=== PATIENT | male | born 1965 | race Caucasian/White ===

== ENCOUNTER 2020-06-04 04:28 | Emergency (ER) | payer BC, SELFPAY ==
[2020-06-04 04:29] VITALS: BP 182/100; PULSE 77; RESP 18; TEMP 36.3; O2SAT 98; BMI 27.1
[2020-06-04] MEDS: LORazepam 1 MG Tablet PO (04:38)
--- NOTE | 2020-06-04 05:10 | ED.DCSUM_ITS ---
- ER Visit Summary Date of Service: 06/04/20 Chief Complaint: Anxiety History of Present Illness: The patient is a 55 M who presents with anxiety. He states is been building for the past week. He states that he is having a hard time at his job. Is becoming more dizzy and people around him at work are not happy with her job. This is been giving him some anxiety. He denies any history of anxiety in the past. He feels like his mind is racing. He feels stressed. He is having trouble sleeping. He took Benadryl which helped him sleep for a little bit but he then woke back up with the same anxiety. He has some slight nausea with this. He denies any chest pain or shortness of breath. He states that he is fairly healthy for his age. He exercises regularly. He takes no daily medications. Physical Examination: Vital signs reviewed. HEENT exam unremarkable. Heart is regular rate and rhythm without murmurs. Lungs are clear to auscultation. Abdomen is soft and nontender. Extremities reveal no edema. Skin exam normal. Neurologic exam normal. Patient's affect is appropriate. He is not suicidal. He appears comfortable laying in the bed. Test Results: None performed Emergency Department Course and Treatment: Patient's physical exam is unremarkable except for some slight hypertension. He was given a dose of Ativan here. I see no abnormalities on physical exam. He does have a follow-up appoi ntment with his PCP in 2 days. I recommend he keep that appointment. I will send him home with some Vistaril that he can take for anxiety. I do not feel he requires any laboratory studies or imaging at this time. Treatment Plan: [] Disposition: Discharge Impression: Anxiety This note was generated with [employer]ingo[employer] dictation software. It may contain incorrect words, spelling, and punctuation that were not noted in review of the chart prior to signing ED Disposition - Plan for ED Patient: Disposition: Home or Assisted Living Instructions: ED Panic Attack Prescriptions: hydrOXYzine pamoate capsule [Vistaril] 25 mg PO TID PRN PRN #20 cap PRN Reason: Anxiety Transmission Status: Pending to [id number] Referrals: Scar Wilkins MD [Primary Care Provider] -
[2020-06-04 05:29] VITALS: BP 163/90; PULSE 79; RESP 18; O2SAT 96
[2020-06-04 05:31] VITALS: BP 163/90
== END 2020-06-04 05:31 | disposition home or self-care (01) ==
LOC: ED 05:16
PROVIDERS: Emergency Provider Emergency Medicine; PCP Family Medicine
DX: F41.9 Anxiety disorder, unspecified (principal)
CPT/HCPCS: 99283

== ENCOUNTER 2025-04-25 18:38 | Observation (INO) | payer OTHER, SELFPAY ==
[2025-04-25 18:39] VITALS: BP 134/80; PULSE 90; RESP 16; TEMP 36.8; O2SAT 98
[2025-04-25 18:41] VITALS: BMI 24.5
--- NOTE | 2025-04-25 19:05 | CT_ITS ---
PROCEDURE: STROKE BRAIN/HEAD WITHOUT CONT 04/25/2025 REASON FOR EXAM: NEURO DEFICIT, ACUTE, STROKE SUSPECTED TECHNIQUE: Procedure Code: CTBR.ST Modality: CT Procedure: STROKE BRAIN/HEAD WITHOUT CONT Coronal and Sagittal reconstruction series were provided. One or more dose reduction techniques were used (e.g., Automated exposure control, adjustment of the mA and/or kV according to patient size, use of iterative reconstruction technique. RADIATION DOSE SUMMARY: CTDlvol: 80 mGy DLP: 1579 mGycm COMPARISON: None FINDINGS: Brain: There is no evidence of hemorrhage, acute ischemia or mass. No extra- axial fluid collection, midline shift or mass effect. CSF Spaces: Normal Sinuses/Mastoids: Clear Bones: No fracture Incidental note is made of some ossification of the anterior midline falx. CT/STROKE Brain/Head without Cont IMPRESSION: No acute intracranial abnormality. The findings and impression of this report were called directly to the ordering physician, Dr. Bacon at 7:39 p.m, eastern standard time. Reading Location: [id number]
--- NOTE | 2025-04-25 19:05 | EKG12_ITS ---
Test Reason : DIZZY Blood Pressure : */* mmHG Vent. Rate : 74 BPM Atrial Rate : 74 BPM P-R Int : 130 ms QRS Dur : 84 ms QT Int : 400 ms P-R-T Axes : 57 49 58 degrees QTcB Int : 444 ms Normal sinus rhythm Normal ECG Confirmed by Titi Ma ([id number]), assistant editor DARIO HO ([id number]) on 04/27/2025 10:38:43 AM Referred By: Confirmed By: Titi Ma
--- NOTE | 2025-04-25 19:06 | CT_ITS ---
PROCEDURE: STROKE CTA HEAD AND NECK W/CON 04/25/2025 REASON FOR EXAM: NEURO DEFICIT, ACUTE, STROKE SUSPECTED TECHNIQUE: Procedure Code: CTCTA.ST.HN Modality: CT Procedure: STROKE CTA HEAD AND NECK W/CON Multiplanar Sagittal and Coronal images were obtained. 3D post processing was performed CONTRAST: Isovue 370 VOLUME: 100 mL One or more dose reduction techniques were used (e.g., Automated exposure control, adjustment of the mA and/or kV according to patient size, use of iterative reconstruction technique). RADIATION DOSE SUMMARY: CTDlvol: 74 mGy DLP: 1579 mGycm COMPARISON: Head CT of the same day FINDINGS: Aortic Arch: No aneurysm. Left vertebral artery originates directly from the arch. Brachiocephalic and Subclavians: Unremarkable RIGHT Carotid: Right CCA: Minimal mural plaque at the carotid bulb. Right ICA: Minimal mural plaque proximally. Maximum stenosis (NASCET): Less than 15% % Right ECA: Unremarkable LEFT Carotid: Left CCA: Minimal mural plaque at the carotid bulb. Left ICA: Minimal mural plaque proximally. Maximum stenosis (NASCET): Less than 15 % Left ECA: Unremarkable Vertebrals: Right is dominant. Both are patent. RIGHT Vertebral: Unremarkable. LEFT Vertebral: Unremarkable. Anatomy: origin production inspector bilaterally. Aneurysm or avm: No intracranial aneurysms or large vascular malformations are identified. Anterior cerebral arteries: Unremarkable. Middle cerebral arteries: Unremarkable. Basilar artery: Unremarkable. Posterior cerebral arteries: origin bilaterally. Hypoplastic P1 segments bilaterally. Other major branches of the posterior circulation: Unremarkable. Major venous structures: Unremarkable. Other findings: Neck: No lymphadenopathy. Lungs: Lung apices are clear. Bones: Bones are unremarkable. CT/STROKE CTA Head AND Neck W/Con IMPRESSION: 1. No large vessel occlusion. 2. Minimal atherosclerosis of the carotid bulb and proximal internal carotid a rteries with less than 15% stenosis. 3. No aneurysm. Reading Location: [id number]
[2025-04-25 19:20] LABS: Hematocrit 43.6 % (40-54); Hemoglobin 16.2 g/dL (13.0-16.5); Immature Granulocytes Count 0.030 X10^3/uL (0.0-0.0); Mean Corp Hgb Conc 37.2 g/dL (32-36); Mean Corpuscular Volume 86.0 fL (80-94); Mean Platelet Vol. 9.3 fl (6.2-12.0); NRBC Flagged by Analyzer 0 % (0-5); Platelet Count 198 K/mm3 (150-450); RBC Distribution Width CV 11.3 % (11.6-14.6); RBC Distribution Width SD 35.1 fl (35.1-43.9); Red Blood Count 5.07 M/mm3 (4.6-6.2); White Blood Count 8.9 K/mm3 (4.4-11.0)
--- OUTSIDE RECORDS SUMMARY | 2025-04-25 19:27 | XMS RPT_ITS | CCD ---
Author Organization [facility] Care Team Providers Care Dental Ceramist Assistant Name Role Phone Lilia Montero MD Primary Care Provider Lilia Montero MD Primary Care Provider [phone] Tannhof PUBLIC AFFAIRS MANAGER.Kanchan HAIRSTON Unavailable Jimmy PUBLIC AFFAIRS MANAGER.Tio HAIRSTON Unavailable PAIGE MILLER Attending Unavailable LILIA MONTERO Primary Care Unavailable LILIA MONTERO Primary Care Unavailable LYN CABAN Attending Unavailable Allergies Allergy Classification Reported Allergen(s) Allergy Type Date of Onset Reaction(s) Facility (17 sources) Seasonal allergy; Translations: [SEASONAL ALLERGIES] Propensity to adverse reactions 01-30-2011 Intolerance [facility] Work Phone: Medications Current Medications Medication Drug Class(es) Dates Sig (Normalized) Sig (Original) amoxicillin 875 mg / clavulanate 125 mg oral tablet (4 sources) Penicillin-class Antibacterial Start: 03-07-2025 End: 03-14-2025 take 1 tablet by mouth every twelve hours amoxicillin-clav ulanate potassium (AUGMENTIN) 875-125 mg per tablet Take 1 tablet by mouth every 12 hours for 7 days. 14 tablet 03/07/2025 03/14/2025 Active Start: 03-18-2022 End: 03-25-2022 take 1 tablet by mouth twice daily amoxicillin-clavulanic acid (AUGMENTIN) 875-125 mg per tablet Take 1 tablet by mouth twice daily for 7 days. 14 tablet 0 03/18/2022 03/25/2022 Active Comment on above: Take 1 tablet by caitlyn twice daily for 7 days. lisinopril 10 mg oral tablet (8 sources) Angiotensin Converting Enzyme Inhibitor Start: 09-17-2024 take 1 tablet by mouth once daily lisinopril (ZESTRIL) 10 mg tablet Indications: Essential hypertension, benign Take 1 tablet by mouth once daily. 30 tablet 09/17/2024 Active Start: 05-17-2023 End: 09-15-2024 take 1 tablet by mouth once daily lisinopril (ZESTRIL) 10 mg tablet Indications: Essential hypertension, benign Take 1 tablet by mouth once daily. 90 tablet 3 06/14/2023 09/15/2024 Discontinued Comment on above: Take 1 tablet by caitlyn once daily. predniSONE 20 mg oral tablet (5 sources) Start: 03-28-2022 End: 04-02-2022 take 2 tablets by mouth once daily predniSONE (DELTASONE) 20 mg tablet Indications: Hoarseness of voice Take 2 tablets by mouth once daily for 5 days. 10 tablet 0 03/28/2022 04/02/2022 Active Start: 03-18-2022 End: 03-28-2022 predniSONE (DELTASONE) 10 mg tablet Take 4 tabs daily for 3 days, then 2 tabs daily for 3 days, then 1 tab daily for 3 days with food. 21 tablet 0 03/18/2022 03/28/2022 Discontinued Comment on above: Take 4 tabs daily fo r 3 days, then 2 tabs daily for 3 days, then 1 tab daily for 3 days with food. Take 2 tablets by mo [facility] once daily for 5 days. Completed/Discontinued Medications Medication Drug Class(es) Dates Sig (Normalized) Sig (Original) 24 hr buPROPion hydrochloride 150 mg extended release oral tablet (6 sources) Aminoketone Start: 05-17-2023 End: 09-15-2024 take 1 tablet by mouth once daily buPROPion XL (WELLBUTRIN XL) 150 mg 24 hr tablet Indications: Anxiety and depression Take 1 tablet by mouth once daily. 90 tablet 3 06/14/2023 09/15/2024 Discontinued Comment on above: Take 1 tablet by caitlyn once daily. FLUoxetine 20 mg oral capsule (13 sources) Serotonin Reuptake Inhibitor Start: 12-11-2021 End: 09-15-2024 take 1 capsule by mouth once daily FLUoxetine (PROZAC) 20 mg capsule Take 1 capsule by mouth once daily. 90 capsule 3 06/14/2023 09/15/2024 Discontinued Comment on above: Take 1 capsule by mo uth once daily. 24 hr venlafaxine 37.5 mg extended release oral capsule (2 sources) Serotonin and Norepinephrine Reuptake Inhibitor Start: 07-03-2021 End: 12-04-2021 venlafaxine ER (EFFEXOR XR) 37.5 mg 24 hr capsule Take one pill daily for 2 weeks, then take one pill every other days for two weeks, then discontinue 30 capsule 2 07/03/2021 12/04/2021 Discontinued Start: 02-22-2021 End: 12-04-2021 take 1 capsule by mouth once daily venlafaxine ER (EFFEXOR XR) 75 mg 24 hr capsule Indications: BEATRIZ (generalized anxiety disorder) Take 1 capsule by mouth once daily. 90 capsule 3 02/22/2021 12/04/2021 Discontinued Comment on above: Take 1 capsule by mo uth once daily. Take one pill daily for 2 weeks, then take one pill every other days for two weeks, then discontinue Problems Problem Classification Problem Date Documented Da te Episodic/Chronic Anxiety disorders (2 sources) Mixed anxiety and depressive disorder; Translations: [Anxiety disorder, unspecified] 05-17-2023 Chronic Diseases of mouth; excluding dental (2 sources) Sialoadenitis; Translations: [Sialoadenitis, unspecified] Onset: 03-07-2025 03-07-2025 Episodic Essential hypertension (20 sources) Hypertensive disorder; Translations: [Essential (primary) hypertension] Onset: 12-18-2010 12-18-2010 Chronic Other liver diseases (1 source) Increased bilirubin level; Translations: [Unspecified jaundice] 06-14-2023 Episodic Other male genital disorders (2 sources) Testicular mass; Translations: [Other specified disorders of the male genital organs] Episodic Other male genital disorders (1 source) Encysted hydrocele of spermatic cord; Translations: [Encysted hydrocele] Episodic Other screening for suspected conditions (not mental disorders or infectious disease) (1 source) Patient encounter status; Translations: [Encounter for screening for malignant neoplasm of prostate] 05-17-2023 Episodic Other skin disorders (1 source) Scrotal mass; Translations: [Follicular cyst of the skin and subcutaneous tissue, unspecified] 09-15-2024 Episodic Other upper respiratory disease (2 sources) Hoarse; Translations: [Dysphonia] Episodic Other upper respiratory infections (2 sources) Acute upper respiratory infection; Translations: [Acute upper respiratory infection, unspecified] Episodic Results Test Name Value Interpretation Reference Range Colin Del Valle 03-07-2025 CNOV Office Visit ([facility]) PHILOMENA BARKER ([id number]) 1965 M Date Time Provider Department 03/07/25 12:30 PM LYN CABAN WOJW During your visit today, we recorded the following information about you: Temperature Pulse Respiration Blood pressure 96.9 degrees 76/minute 16/minute 126/74 Weight 79.6 kg Lyn Caban PA 03/07/2025 12:43 PM Signed [facility] Subjective Philomena Barker is a 60 year old male. Patient presents with: Pain: left side neck and jaw pain and swelling x 2.5 days HPI Left-Sided Facial Swelling and Pain: - Onset Saturday with initial soreness near the ear, subsided, then returned Saturday afternoon with significant swelling. - Took one leftover antibiotic, which seemed to reduce swelling temporarily. - Swelling recurred after eating lunch today, described as ballooned. - Pain localized to the end of the jaw below the ear; no dental or jaw pain. - Denies fevers, dysphagia, or dyspnea. - No previous episodes. - Recent dental surgery about a month ago. Review of Systems Constitutional: (-) fever Head: (+) left facial swelling, (+) left facial pain Ears/Nose/Mouth/Throa t: (-) dental pain Respiratory: (-) dyspnea Gastrointestinal: (-) dysphagia Musculoskeletal: (-) jaw pain Objective BP 126/74 Pulse 76 Temp 36.1 ?C (96.9 ?F) Resp 16 Wt 79.6 kg (175 lb 7.8 oz) SpO2 97% BMI 25.91 kg/m? Physical Exam Vitals and nursing note reviewed. Constitutional: General: He is not in acute distress. Appearance: Normal appearance. He is not toxic-appearing. HENT: Head: Jaw: Tenderness and swelling present. No malocclusion. Right Ear: Tympanic membrane and ear canal normal. Left Ear: Tympanic membrane and ear canal normal. Mouth/Throat: Mouth: Mucous membranes are moist. Comments: Dentition normal. No tongue or floor of mouth swelling. No trismus. No dental tenderness. Mild tenderness and swelling noted just inferior to the left parotid gland and in the submandibular region just underneath the jaw. No redness. Cardiovascular: Rate and Rhythm: Normal rate and regular rhythm. Pulmonary: Effort: Pulmonary effort is normal. Breath sounds: Normal breath sounds. Skin: General: Skin is warm and dry. Neurological: Mental Status: He is alert. General: No acute distress. HEENT: Left parotid gland swelling, no dental abnormalities, right ear without abnormalities. { 1. Sialadenitis (K11.20) - Intermittent swelling and tenderness in the left parotid region and submental, likely due to sialolithiasis causing obstruction and secondary infection. - Initiated Augmentin to address potential bacterial infection. - Advised use of sour candies or lemon throat lozenges to stimulate salivary flow and facilitate stone expulsion. - Recommended warm or cold compresses to alleviate swelling. - Instructed to seek emergency care if experiencing dysphagia, trismus, or significant difficulty in oral intake. - Prescription sent to [facility] Recording using [employer] software for draft documentation of the visit was discussed with the patient/authorized sales training representative; all questions welcomed and answered. Patient/authorized sales training representative agreed to proceed Differential Diagnoses - Sialoadenitis/parotid itis is more likely for the following reason(s): suggested by HANDP - Torsten's angina is less likely for the following reason(s): HANDP not suggestive Disposition The patient was discharged. Procedures Allergies As of Date: 03/07/2025 Noted Allergy Reaction SEASONAL ALLERGIES 01/30/2011 5 - Intolerance Date Reviewed: 03/07/2025 Reviewed by: Kamila Avila MA - Fully Assessed Reason for Visit: Pain [78] Cmt: left side neck and jaw pain and swelling x 2.5 days Primary Visit Diagnosis:Sialadeniti s [K11.20] Order(s):amoxicillin- clavulanate potassium (AUGMENTIN) 875-125 mg per tabletTake 1 tablet by mouth every 12 hours for 7 days.Disp: 14 tabletRfl: 0 Prescriptions as of 03/07/2025 - amoxicillin-clavulana te potassium (AUGMENTIN) 875-125 mg per tablet Take 1 tablet by mouth every 12 hours for 7 days. - lisinopril (ZESTRIL) 10 mg tablet Take 1 tablet by mouth once daily. Problem List As Of Date 03/07/2025 Noted Resolved Mild hypertension [I10] 12/18/2010 Essential hypertension, benign [I10] 08/01/2011 Prescriptions ordered this encounter Disp Refills Start End AMOXICILLIN 875 MG-POTASSIUM CLAVULA* 14 t* 0 03/07/2025 03/14/2025 Route: PO Sig: Take 1 tablet by mouth every 12 hours for 7 days. Encounter Status:Closed by LYN CABAN on 03/07/25 [facility] CNOVon 09-15-2024 CNOV Office Visit (UROLWS ) PHILOMENA BARKER ([id number]) 1965 M Date Time Provider Department 09/15/24 11:00 AM PAIGE MILLER During your visit today, we recorded the following information about you: Temperature Pulse Respiration Blood pressure 97 degrees 72/minute 14/minute 158/98 Weight Height 83 kg 1.753 m Paige Miller PA-C 09/15/2024 8:48 PM Signed [facility] NEW PATIENT CLINIC NOTE (M) SERVICE DATE: September 15, 2024 NAME: Philomena Barker GENDER: male CHIEF COMPLAINT: Right side Scrotum enlargement HISTORY OF PRESENT ILLNESS: Philomena Barker is a 59 year old male a new patient here for Right side Scrotum enlargement The patient reports having right sided scrotum cyst iin 2021, benign and no therapy at that time Now the cyst is enlarging some and becoming more concerning for discomfort and wheter he may have other testicle or sctou issues like testicle cancer reSSURANCE GIVEN THAT WE WILL RECHECK THE us AND report back the result after final LUTS: No NewLUTs Other symptoms: ED - no LABS: PSA Screening (ng/mL) Date Value 06/10/2023 0.82 No results found for: TESTOST No results found for: HCT PSA Screening (ng/mL) Date Value 06/10/2023 0.82 Creatinine Date Value Ref Range Status 06/10/2023 1.14 0.73 - 1.22 mg/dL Final 07/07/2020 1.03 0.73 - 1.22 mg/dL Final MEDICATIONS: FLUoxetine (PROZAC) 20 mg capsule Take 1 capsule by mouth once daily. lisinopril (ZESTRIL) 10 mg tablet Take 1 tablet by mouth once daily. buPROPion XL (WELLBUTRIN XL) 150 mg 24 hr tablet Take 1 tablet by mouth once daily. PAST MEDICAL HISTORY: PAST MEDICAL HISTORY Diagnosis Date Anxiety and depression Elevated bilirubin 06/14/2023 Essential hypertension, benign Hydrocele 12/11/2021 Bilateral- small PAST SURGICAL HISTORY: PAST SURGICAL HISTORY Procedure Laterality Date COLONOSCOPY SCRN NOT HIGH RISK 09/27/2020 EXCISION BENIGN TUMOR/CYST lipoma at left shoulder TONSILLECTOMY HX FAMILY HISTORY: FAMILY HISTORY Adopted: Yes SOCIAL HISTORY: Social Connections: Moderately Integrated (11/27/2021) Social Connection and Isolation Panel [NHANES] Frequency of Communication with Friends and Family: Once a week Frequency of Social Gatherings with Friends and Family: Twice a week Attends Scientologist Services: Never Active Member of Clubs or Organizations: Yes Attends Club or Organization Meetings: More than 4 times per year Marital Status: REVIEW OF SYSTEMS: GENERAL: No fever, chills, weight loss, or fatigue. ENMT: Negative CARDIOVASCULAR:NO CHEST PAIN, PALPITATIONS, ANKLE EDEMA RESPIRATORY: No chronic cough, wheezing, dyspnea, hemoptysis. GENITOURINARY: SEE HPI MUSCULOSKELETAL:NO CHRONIC BACK PAIN, ARTHRITIS, CHRONIC NECK PAIN SKIN: NO VARICOSE VEINS, RASH, ABNORMAL ITCHING HEME/LYMPH/IMMUNE:Neg ative for prolonged bleeding, bruising easily or swollen nodes NEUROLOGICAL: NO HEADACHES, NUMBNESS, SEIZURES, STROKE DIABETES: No All other systems reviewed and are negative PHYSICAL EXAMINATION: Blood pressure 158/98, pulse 72, temperature 36.1 ?C (97 ?F), temperature source Temporal, resp. rate 14, height 175.3 cm (5' 9), weight 83 kg (183 lb), SpO2 99%. GENERAL: WNL nutrition, no deformities, healthy appearing NEURO: Awake, alert and oriented x 3 and Normal gait PSYCH: No signs of depression, anxiety, or agitation ENMT (Ear, Nose, Mouth, Throat): No masses, adenopathy, icterus. Thyroid nonpalpable RESP: NL effort, no retractions or purse-lip breathing. CV: No extremity swelling, varices, edema, pallor, erythema GASTROINTESTINAL: Soft, nontender, nondistended, no masses. HERNIAS: None SKIN: No rash, lesions No palpable lymphadenopathy MUSCULOSKELETAL: Extremities normal. No deformities, edema, clubbing or skin discoloration. GENITOURINARY: MALE EXAM: Epididymis AND testes: normal size, position, right sided Scrotum Cyst moderate in size with no pain on exam Urethra AND meatus: normal size AND position w/o lesion or discharge Penis: circumcised, w/o plaques, lesions, masses, or deformities. PROBLEM LIST REVIEW: Yes LABS: Results for orders placed or performed in visit on 06/10/23 COMP METABOLIC PANEL Result Value Ref Range Protein, Total 6.7 6.3 - 8.0 g/dL Albumin 4.2 3.9 - 4.9 g/dL Calcium, Total 9.5 8.5 - 10.2 mg/dL Bilirubin, Total 1.7 (H) 0.2 - 1.3 mg/dL Alkaline Phosphatase 82 38 - 113 U/L AST 20 14 - 40 U/L ALT 22 10 - 54 U/L Glucose 95 74 - 99 mg/dL BUN 17 9 - 24 mg/dL Creatinine 1.14 0.73 - 1.22 mg/dL Sodium 141 136 - 144 mmol/L Potassium 4.5 3.7 - 5.1 mmol/L Chloride 104 97 - 105 mmol/L CO2 26 22 - 30 mmol/L Anion Gap 11 9 - 18 mmol/L Estimated Glomerular Filtration Rate 75 >=60 mL/min/1.73m? PSA/PROSTSPECAG SCRN Result Value (more content not included)... Normal [facility] [place] 09-10-2024 CNPN Telephone (UROLWS) MJPHILOMENA Whaley ([id number]) 1965 M Date Time Provider Department 09/10/24 PAIGE MILLER During your visit today, we recorded the following information about you: Zach Rosario LPN 09/10/2024 11:03 AM Signed Called patient. No answer- left message. Patient scheduled for 09/15/2024 in urology for testicular growth. Has he been seen elsewhere and if so where? REMY Patrick Kimberly, LPN 09/15/2024 10:53 AM Signed Patient present for appointment. Has not been seen for testicular concern since US done 12/11/2021. Zach Rosario LPN Allergies As of Date: 09/10/2024 Noted Allergy Reaction SEASONAL ALLERGIES 01/30/2011 5 - Intolerance Date Reviewed: 06/14/2023 Reviewed by: Arcelia Duque MA - Fully Assessed Reason for Visit: Appointment [186] Prescriptions as of 09/15/2024 - FLUoxetine (PROZAC) 20 mg capsule Take 1 capsule by mouth once daily. - lisinopril (ZESTRIL) 10 mg tablet Take 1 tablet by mouth once daily. - buPROPion XL (WELLBUTRIN XL) 150 mg 24 hr tablet Take 1 tablet by mouth once daily. Problem List As Of Date 09/10/2024 Noted Resolved Mild hypertension [I10] 12/18/2010 Essential hypertension, benign [I10] 08/01/2011 Encounter Status:Closed by ZACH ROSARIO on 09/15/24 Normal [facility] No Panel Informationon 12-11 [facility] Emergency Department Summary on 06-04-2020 Emergency Department Summary [facility] Medical Records Department [address] [place] [address] [place] [address] Emergency Department Summary 06/04/20 MR#: [id number] Acct: [id number] Name: PHILOMENA BARKER Rep #: [id number] : 1965 55 From: Sammy Baptiste MD PCP: Dr. Lilia Montero MD Status:PRE ER - ER Visit Summary Date of Service: 06/04/20 Chief Complaint: Anxiety History of Present Illness: The patient is a 55 M who presents with anxiety. He states is been building for the past week. He states that he is having a hard time at his job. Is becoming more dizzy and people around him at work are not happy with her job. This is been giving him some anxiety. He denies any history of anxiety in the past. He feels like his mind is racing. He feels stressed. He is having trouble sleeping. He took Benadryl which helped him sleep for a little bit but he then woke back up with the same anxiety. He has some slight nausea with this. He denies any chest pain or shortness of breath. He states that he is fairly healthy for his age. He exercises regularly. He takes no daily medications. Physical Examination: Vital signs reviewed. HEENT exam unremarkable. Heart is regular rate and rhythm without murmurs. Lungs are clear to auscultation. Abdomen is soft and nontender. Extremities reveal no edema. Skin exam normal. Neurologic exam normal. Patient's affect is appropriate. He is not suicidal. He appears comfortable laying in the bed. Test Results: None performed Emergency Department Course and Treatment: Patient's physical exam is unremarkable except for some slight hypertension. He was given a dose of Ativan here. I see no abnormalities on physical exam. He does have a follow-up appointment with his PCP in 2 days. I recommend he keep that appointment. I will send him home with some Vistaril that he can take for anxiety. I do not feel he requires any laboratory studies or imaging at this time. Treatment Plan: [] Disposition: Discharge Impression: Anxiety This note was generated with [employer] software. It may contain incorrect words, spelling, and punctuation that were not noted in review of the chart prior to signing ED Disposition - Plan for ED Patient: Disposition: Home or Assisted Living Instructions: ED Panic Attack Prescriptions: hydrOXYzine pamoate capsule [Vistaril] 25 mg PO TID PRN PRN #20 cap PRN Reason: Anxiety Transmission Status: Pending to [facility] Referrals: Lilia Montero MD [Primary Care Provider] - What to do if you have Problems For any increased pain, shortness of breath, bleeding, nausea or vomiting, chest pain, or any unexpected problems, contact your Primary Care Provider. Call [facility] ([phone]) or report to the closest Emergency Room. Call 911 if necessary. 06/04/20511 Date Sammy Baptiste MD Cosigner Signature (If Indicated): Date _ CC: Dr. Lilia Montero MD [facility] Vital Signs Date Time Vital Sign Value Performing Clinician Facility 03-07-2025 12:33-0400 Body mass index (BMI) [Ratio] 25.91 kg/m2 Krislyn Aberegg PA Work Phone: [facility] 03-07-2025 12:33-0400 Body temperature 96.91 [degF] Krislyn Aberegg PA Work Phone: [facility] 03-07-2025 12:33-0400 Body weight 79.6 kg Krislyn Aberegg PA Work Phone: [facility] 03-07-2025 12:33-0400 Diastolic blood pressure 74 mm[Hg] Krislyn Aberegg PA Work Phone: [facility] 03-07-2025 12:33-0400 Heart rate 76 /min Krislyn Aberegg PA Work Phone: [facility] 03-07-2025 12:33-0400 Respiratory rate 16 /min Krislyn Aberegg PA Work Phone: [facility] 03-07-2025 12:33-0400 SaO2% (BldA) [Mass fraction] 97 % Krislyn Aberegg PA Work Phone: [facility] 03-07-2025 12:33-0400 Systolic blood pressure 126 mm[Hg] Krislyn Aberegg PA Work Phone: [facility] 09-15-2024 10:49-0500 Body height 175.3 cm Paige Miller PA-C Work Phone: [facility] 09-15-2024 10:49-0500 Body mass index (BMI) [Ratio] 27.02 kg/m2 Paige Miller PA-C Work Phone: [facility] 09-15-2024 10:49-0500 Body temperature 97 [degF] Paige Miller PA-C Work Phone: [facility] 09-15-2024 10:49-0500 Body weight 83.01 kg Paige Miller PA-C Work Phone: [facility] 09-15-2024 10:49-0500 Diastolic blood pressure 98 mm[Hg] Paige Miller PA-C Work Phone: [facility] Comment on above: Advised patient to update PCP on blood p ressure- states he has been on and off of blood pressure medications. Paige notified of blood pressure. 09-15-2024 10:49-0500 Heart rate 72 /min Paige Miller PA-C Work Phone: [facility] 09-15-2024 10:49-0500 Respiratory rate 14 /min Paige Miller PA-C Work Phone: [facility] 09-15-2024 10:49-0500 SaO2% (BldA) [Mass fraction] 99 % Paige Miller PA-C Work Phone: [facility] 09-15-2024 10:49-0500 Systolic blood pressure 158 mm[Hg] Paige Miller PA-C Work Phone: [facility] Comment on above: Advised patient to update PCP on blood p ressure- states he has been on and off of blood pressure medications. Paige notified of blood pressure. 06-14-2023 08:03-0400 Body weight 89 kg Tio Jimmy PUBLIC AFFAIRS MANAGER.TECHNOLOGY ARCHITECT Work Phone: [facility] 06-14-2023 08:03-0400 Diastolic blood pressure 93 mm[Hg] Tio Jimmy PUBLIC AFFAIRS MANAGER.TECHNOLOGY ARCHITECT Work Phone: [facility] 06-14-2023 08:03-0400 Heart rate 67 /min Tio Jimmy PUBLIC AFFAIRS MANAGER.TECHNOLOGY ARCHITECT Work Phone: [facility] 06-14-2023 08:03-0400 Respiratory rate 16 /min Tio Jimmy PUBLIC AFFAIRS MANAGER.TECHNOLOGY ARCHITECT Work Phone: [facility] 06-14-2023 08:03-0400 SaO2% (BldA) [Mass fraction] 98 % Tio Jimmy PUBLIC AFFAIRS MANAGER.TECHNOLOGY ARCHITECT Work Phone: [facility] 06-14-2023 08:03-0400 Systolic blood pressure 132 mm[Hg] Tio Jimmy PUBLIC AFFAIRS MANAGER.TECHNOLOGY ARCHITECT Work Phone: [facility] 05-17-2023 08:09-0400 Diastolic blood pressure 124 mm[Hg] Tio Jimmy PUBLIC AFFAIRS MANAGER.TECHNOLOGY ARCHITECT Work Phone: [facility] 05-17-2023 08:09-0400 Systolic blood pressure 170 mm[Hg] Tio Jimmy PUBLIC AFFAIRS MANAGER.TECHNOLOGY ARCHITECT Work Phone: [facility] 05-17-2023 07:41-0400 Body weight 88.81 kg Tio Jimmy PUBLIC AFFAIRS MANAGER.TECHNOLOGY ARCHITECT Work Phone: [facility] 05-17-2023 07:41-0400 Heart rate 83 /min Tio Jimmy PUBLIC AFFAIRS MANAGER.TECHNOLOGY ARCHITECT Work Phone: [facility] 05-17-2023 07:41-0400 Respiratory rate 16 /min Tio Jimmy PUBLIC AFFAIRS MANAGER.TECHNOLOGY ARCHITECT Work Phone: [facility] 05-17-2023 07:41-0400 SaO2% (BldA) [Mass fraction] 98 % Tio Jimmy PUBLIC AFFAIRS MANAGER.TECHNOLOGY ARCHITECT Work Phone: [facility] 03-28-2022 08:31-0400 Body weight 84.37 kg Kanchan Alonsohof PUBLIC AFFAIRS MANAGER.TECHNOLOGY ARCHITECT Work Phone: [facility] [facility] 03-28-2022 08:31-0400 Diastolic blood pressure 80 mm[Hg] Kanchan Alonsohof PUBLIC AFFAIRS MANAGER.TECHNOLOGY ARCHITECT Work Phone: [facility] 03-28-2022 08:31-0400 Heart rate 85 /min Kanchan Tannhof PUBLIC AFFAIRS MANAGER.TECHNOLOGY ARCHITECT Work Phone: [facility] 03-28-2022 08:31-0400 Respiratory rate 16 /min Kanchan Tannhof PUBLIC AFFAIRS MANAGER.TECHNOLOGY ARCHITECT Work Phone: [facility] 03-28-2022 08:31-0400 SaO2% (BldA) [Mass fraction] 96 % Kanchan Alonsohof PUBLIC AFFAIRS MANAGER.TECHNOLOGY ARCHITECT Work Phone: [facility] 03-28-2022 08:31-0400 Systolic blood pressure 110 mm[Hg] Kanchan Tannhof PUBLIC AFFAIRS MANAGER.TECHNOLOGY ARCHITECT Work Phone: [facility] 03-22-2022 09:04-0400 Body temperature 98.01 [degF] Zoila Bogner PA-C Work Phone: [facility] 03-22-2022 09:04-0400 Body weight 85.91 kg Zoila Bogner PA-C Work Phone: [facility] 03-22-2022 09:04-0400 Diastolic blood pressure 78 mm[Hg] Zoila Bogner PA-C Work Phone: [facility] 03-22-2022 09:04-0400 Heart rate 81 /min Zoila Bogner PA-C Work Phone: [facility] 03-22-2022 09:04-0400 Respiratory rate 16 /min Zoila Bogner PA-C Work Phone: [facility] 03-22-2022 09:04-0400 SaO2% (BldA) [Mass fraction] 97 % Zoila Bogner PA-C Work Phone: [facility] 03-22-2022 09:04-0400 Systolic blood pressure 126 mm[Hg] Zoila Hicks PA-C Work Phone: [facility] 03-18-2022 09:33-0400 Body temperature 97.59 [degF] Juani Brice PUBLIC AFFAIRS MANAGER.TECHNOLOGY ARCHITECT Work Phone: [facility] 03-18-2022 09:33-0400 Body weight 85.73 kg Juani Brice PUBLIC AFFAIRS MANAGER.TECHNOLOGY ARCHITECT Work Phone: [facility] 03-18-2022 09:33-0400 Diastolic blood pressure 98 mm[Hg] Juani Brice PUBLIC AFFAIRS MANAGER.TECHNOLOGY ARCHITECT Work Phone: [facility] 03-18-2022 09:33-0400 Heart rate 86 /min Juani Brice PUBLIC AFFAIRS MANAGER.TECHNOLOGY ARCHITECT Work Phone: [facility] 03-18-2022 09:33-0400 Respiratory rate 16 /min Juani Brice PUBLIC AFFAIRS MANAGER.TECHNOLOGY ARCHITECT Work Phone: [facility] 03-18-2022 09:33-0400 SaO2% (BldA) [Mass fraction] 98 % Juani Brice PUBLIC AFFAIRS MANAGER.TECHNOLOGY ARCHITECT Work Phone: [facility] 03-18-2022 09:33-0400 Systolic blood pressure 142 mm[Hg] Juani Brice PUBLIC AFFAIRS MANAGER.TECHNOLOGY ARCHITECT Work Phone: [facility] 12-04-2021 13:20-0400 Body height 176.5 cm Lilia Montero MD Work Phone: [facility] 12-04-2021 13:20-0400 Body weight 84.82 kg Lilia Montero MD Work Phone: [facility] 12-04-2021 13:20-0400 Diastolic blood pressure 84 mm[Hg] Lilia Montero MD Work Phone: [facility] 12-04-2021 13:20-0400 Heart rate 60 /min Lilia Montero MD Work Phone: [facility] 12-04-2021 13:20-0400 Respiratory rate 12 /min Lilia Montero MD Work Phone: [facility] 12-04-2021 13:20-0400 Systolic blood pressure 136 mm[Hg] Lilia Montero MD Work Phone: [facility] Encounters Encounter Date Encounter Type Care Provider Facility Start: 03-07-2025 End: 03-07-2025 Patient encounter procedure Lyn GARCES Work Phone: [facility] Comment on above: Sialadenitis (Primar y Dx) Start: 03-07-2025 End: 03-07-2025 ambulatory LILIA MONTERO Facility:[facility] Start: 09-15-2024 End: 09-17-2024 ambulatory Tio Marquez APRN.TECHNOLOGY ARCHITECT Work Phone: [facility] [place] Comment on above: High blood pressure medication Start: 09-15-2024 End: 09-15-2024 Patient encounter procedure Paige Miller PA-C Work Phone: Urology Comment on above: Cyst of scrotum (Lety ney Dx) Start: 09-10-2024 End: 09-15-2024 Telephone encounter Paige Miller PA-C Work Phone: Urology Comment on above: Appointment Start: 12-30-2023 ambulatory Tio MEYER RN.TECHNOLOGY ARCHITECT Work Phone: [facility] Comment on above: Prozac replacement Start: 06-14-2023 End: 06-14-2023 Office outpatient visit 25 minutes Tio Marquez APRN.TECHNOLOGY ARCHITECT Work Phone: [facility] Comment on above: Anxiety and depressi on (Primary Dx); Essential hypertension, benign; Elevated bilirubin Start: 05-17-2023 End: 05-17-2023 Office outpatient visit 25 minutes Tio Marquez APRN.TECHNOLOGY ARCHITECT Work Phone: [facility] Comment on above: Anxiety and depressi on (Primary Dx); Essential hypertension, benign; Screening for prostate cancer Start: 05-15-2023 ambulatory Lilia swann MD Work Phone: [facility] [place] Comment on above: Switching back to pr evious medication Start: 06-13-2022 ambulatory Lilia swann MD Work Phone: [facility] [place] Comment on above: Prescription Start: 03-28-2022 End: 03-28-2022 Patient encounter procedure Kanchan Vásquez PUBLIC AFFAIRS MANAGER.TECHNOLOGY ARCHITECT Work Phone: [facility] [place] Comment on above: Hoarseness of voice (Primary Dx); Laryngitis Start: 03-22-2022 End: 03-22-2022 Office outpatient visit 15 minutes Zoila Hicks PA-C Work Phone: [facility] Comment on above: Hoarseness of voice (Primary Dx) Start: 03-20-2022 ambulatory Lilia swann MD Work Phone: [facility] Start: 03-20-2022 Patient encounter procedure Lilia Montero MD Work Phone: [facility] [place] Comment on above: Appointment Start: 03-18-2022 End: 03-18-2022 Patient encounter procedure Juani Brice APRN.TECHNOLOGY ARCHITECT Work Phone: [facility] Comment on above: URI, acute (Primary Dx) Start: 12-11-2021 Telephone encounter Lilia yost MD Work Phone: [facility] [place] Comment on above: Results Start: 12-11-2021 End: 12-11-2021 Subsequent hospital visit by physician [facility] Work Phone: Radiology Comment on above: Mass of right testic le [N50.89] Start: 12-04-2021 End: 12-04-2021 Patient encounter procedure Lilia Montero MD Work Phone: [facility] [place] Comment on above: Wellness examination (Primary Dx); Mass of right testicle Start: 12-04-2021 End: 12-04-2021 Patient encounter status Lilia Montero MD Work Phone: [facility] [place] Procedures Date Procedure Procedure Detail Performing Clinician Start: 12-11-2021 Dup-scan artl teressa abdl/pel/scrot&/rpr orgn com Lilia Montero MD Work Phone: Start: 12-11-2021 Us scrotum & contents M jose Montero MD Work Phone: Start: 12-04-2021 Adult depression scr eening assessment Lilia Montero MD Work Phone: Start: 03-01-2021 Lipid 1996 panel - S maggy or Plasma Lilia Montero MD Work Phone: Start: 09-27-2020 Colonoscopy Lilia montalvo MD Work Phone: Plan of Treatment Date Care Activity Detail Author Start: 01-17-2040 RSV Vaccine (1 - 1-d ose 75+ series) RSV Vaccine (1 - 1-dose 75+ series) [facility] Start: 06-10-2028 Prostate Cancer Screening Discussion Prostate Cancer Screening Discussion [facility] Start: 06-10-2028 Prostate specific antigen measurement Prostate Cancer Screening Discussion [facility] Start: 06-10-2026 Diabetes Screening Diabetes Screenin g [facility] Start: 03-01-2026 Lipid 1996 panel - S maggy or Plasma Lipid Screening [facility] Start: 03-01-2026 Lipid panel Lipid Screening [facility] Start: 03-01-2026 LIPID SCREEN LIPID SCREEN [facility] Start: 09-27-2025 Colonoscopy COLONOSCOPY [facility] Start: 09-27-2025 COLORECTAL CANCER SCREENING COLORECTAL CANCER SCREENING [facility] Start: 09-27-2025 Screening for malign ant neoplasm of colon [facility] Start: 04-26-2025 Influenza vaccination Influenza Vacc ine (#1) [facility] Start: 12-15-2024 End: 12-15-2024 Patient encounter procedure 12/15/2024 4:00 PM EDT Office Visit Urology [address] [place] [address] Paige Miller PA-C [address] [place] [address] 3 MO OV Urology Comment on above: 3 MO OV Start: 09-29-2024 End: 09-29-2024 Patient encounter procedure 09/29/2024 11:30 AM EST Appointment Radiology [address] [place], [place] [id number] Cyst of scrotum [L72.9] Radiology Comment on above: Cyst of scrotum [L72 .9] Start: 09-21-2024 End: 09-21-2024 Patient encounter procedure 09/21/2024 6:40 PM EST Office Visit [facility] [address] [place], [place] [id number] Lilia Montero MD [address] [place], [place] [id number] wants to restart BP medication; has not been seen since 06/14/23 Family [facility] Comment on above: wants to restart BP medication; has not been seen since 06/14/23 Start: 09-15-2024 End: 10-15-2025 US.doppler Scrotum and testicle US SCROTUM AND CONTENTS Radiology Routine Cyst of scrotum Expected: 09/15/2024 (Approximate), Expires: 10/15/2025 [facility] Work Phone: Comment on above: Expected: 09/15/2024 (Approximate), Expires: 10/15/2025 Start: 06-14-2024 Annual PCP Team [place] Attendant martha Disease Visit Annual PCP Team Chronic Disease Visit [facility] Start: 05-17-2024 Annual PCP Team [place] Att[place] martha Disease Visit Annual PCP Team Chronic Disease Visit [facility] Start: 04-26-2024 Covid-19 Vaccine ( season) Covid-19 Vaccine ( season) [facility] Start: 04-26-2024 Influenza vaccination C [facility] Start: 03-01-2024 DIABETES SCREEN DIABETES SCREEN [facility] Start: 03-01-2024 Diabetes Screening Diabetes Screenin g [facility] Start: 12-14-2023 End: 03-14-2024 Comprehensive metabolic 2000 panel - Serum or Plasma COMP METABOLIC PANEL Lab Routine Essential hypertension, benign Expected: 12/14/2023 (Approximate), Expires: 03/14/2024 [facility] Work Phone: Comment on above: Expected: 12/14/2023 (Approximate), Expires: 03/14/2024 Start: 08-26-2023 Behavioral Health Screening Behavioral Health Screening [facility] Start: 05-17-2023 End: 07-17-2023 Comprehensive metabolic 2000 panel - Serum or Plasma COMP METABOLIC PANEL Lab Routine Essential hypertension, benign Expected: 05/17/2023, Expires: 07/17/2023 [facility] Work Phone: Comment on above: Expected: 05/17/2023 , Expires: 07/17/2023 Start: 05-17-2023 End: 07-17-2023 PSA/PROSTSPECAG SCRN PSA/PROSTSPECAG SCRN Lab Routine Screening for prostate cancer Expected: 05/17/2023, Expires: 07/17/2023 [facility] Work Phone: Comment on above: Expected: 05/17/2023 , Expires: 07/17/2023 Start: 04-26-2023 Covid-19 Vaccine () Covid-19 Vaccine () [facility] Start: 04-26-2023 Influenza vaccination Influenza Vacc ine (#1) [facility] Start: 03-28-2023 ANNUAL PCP TEAM GRID MOLDER MARTHA DISEASE VISIT ANNUAL PCP TEAM CHRONIC DISEASE VISIT [facility] Start: 03-22-2023 BP CONTROLLED (<130/80) BP CONTROLLE D (<130/80) [facility] Start: 12-04-2022 Adult depression screening assessment DEPRESSION SCREENING [facility] Start: 12-04-2022 ANNUAL PCP TEAM GRID MOLDER MARTHA DISEASE VISIT ANNUAL PCP TEAM CHRONIC DISEASE VISIT [facility] Start: 12-04-2022 HEPATITIS C SCREENING HEPATITIS C [facility] Comment on above: Postponed from 01/16 (Declined at this time) Start: 12-04-2022 HIV SCREENING HIV SCREENING [facility] Comment on above: Postponed from 01/16 (Declined at this time) Start: 08-26-2022 Depression Assessment Depression Ass essment [facility] Start: 04-26-2022 Influenza vaccination [facility] Start: 08-26-2021 DEPRESSION ASSESSMENT DEPRESSION ASS [facility] Start: 06-07-2021 COVID-19 VACCINE (3 - Booster for Moderna series) COVID-19 VACCINE (3 - Booster for Moderna series) [facility] Start: 03-02-2021 COVID-19 VACCINE (3 - Booster for Moderna series) COVID-19 VACCINE (3 - Booster for Moderna series) [facility] Start: 03-02-2021 Covid-19 Vaccine (3 - Moderna series) Covid-19 Vaccine (3 - Moderna series) [facility] Start: 01-17-2020 PROSTATE CANCER SCREENING DISCUSSION PROSTATE CANCER SCREENING DISCUSSION [facility] Start: 01-28-2019 Urine microalbumin profile [facility] Start: 2015 Pneumococcal Vaccine : 50+ (1 of 1 - PCV) Pneumococcal Vaccine: 50+ (1 of 1 - PCV) [facility] Start: 2015 SHINGRIX VACCINE (1 of 2) SHINGRIX VACCINE (1 of 2) [facility] Start: 2010 COLOGUARD (FIT-DNA) COLOGUARD (FIT-D NA) [facility] Start: [address] COLONOGRAPHY [facility] Start: 2010 FECAL OCCULT BLOOD FECAL OCCULT BLOO D [facility] Start: 2010 Screening for malign ant neoplasm of colon [facility] Start: 2010 SIGMOIDOSCOPY SIGMOIDOSCOPY [facility] Start: 01-17-1984 Hepatitis B Vaccine (1 of 3 - 19+ 3-dose series) Hepatitis B Vaccine (1 of 3 - 19+ 3-dose series) [facility] Start: 1983 Anxiety Screening Anxiety Screening [facility] Start: 1983 BP CONTROLLED (<130/80) BP CONTROLLE D (<130/80) [facility] Start: 1983 Depression Screening Depression Scre ening [facility] Start: 1983 Hepatitis C Screening Hepatitis C [facility] Start: 1983 Hepatitis C screening Hepatitis C [facility] Start: 1983 HIV Screening HIV Screening [facility] Start: 1983 HIV screening HIV Screening [facility] Start: 1965 HEPATITIS B (1 of 3 - 3-dose series) HEPATITIS B (1 of 3 - 3-dose series) [facility] Start: 1965 Hepatitis B Vaccine (1 of 3 - 3-dose series) Hepatitis B Vaccine (1 of 3 - 3-dose series) [facility] End: 01-03-2023 Us scrotum & contents US SCROTUM AND CONTENTS Radiology Routine Mass of right testicle 1 Occurrences starting 12/04/2021 until 01/03/2023 [facility] Work Phone: Comment on above: 1 Occurrences starti ng 12/04/2021 until 01/03/2023 End: 10-15-2025 US.doppler Unspecified body region US DOPPLER COMPLETE Radiology Routine Cyst of scrotum 1 Occurrences starting 09/15/2024 until 10/15/2025 [facility] Comment on above: 1 Occurrences starti ng 09/15/2024 until 10/15/2025 [facility] Immunizations Immunization Date Immunization Notes Care Provider Fa [facility] 06-26-2017 influenza, injectabl e, quadrivalent, contains preservative iLlia Montero MD Work Phone: [facility] 06-26-2017 influenza virus vaccine, unspecified formulation Lilia Montero MD Work Phone: [facility] 06-14-2011 influenza virus vaccine, unspecified formulation Lilia Montero MD Work Phone: [facility] 01-28-2009 tetanus toxoid, redu meri diphtheria toxoid, and acellular pertussis vaccine, adsorbed Lilia Montero MD Work Phone: [facility] Payers Date Payer Category Payer [employer] BLUE ACCE PPO [id number] 2023 Unknown [id number] 2021 Unknown TIARRA OLMEDO PPO [id number] 2021-Present [phone] [id number] [place] [address] PPO [id number] 2021 Unknown [id number] Social History Date Type Detail Facility Start: 12-18-2010 End: 05-17-2023 Tobacco smoking status NHIS Never smoked tobacco [facility] Start: 12-18-2010 End: 05-17-2023 Tobacco use and exposure Smokeless tobacco non-user [facility] Start: 12-04-2021 End: 09-15-2024 Alcohol intake Current drinker of alcohol (finding) [facility] Start: 11-27-2021 History SDOH Alcohol Frequency 3 [facility] Start: 11-27-2021 History SDOH Alcohol Std Drinks 1 [facility] Start: 09-27-2020 History SDOH Alcohol Comment 1-2 times a month [facility] Start: 11-27-2021 History SDOH Social Connections Phone 2 [facility] Start: 11-27-2021 History SDOH Physica l Activity DPW 5 [facility] Start: 11-27-2021 History SDOH Physica l Activity MPS 6 [facility] Start: 1965 Sex Assigned At Not on file C [facility] Start: 11-24-2021 End: 03-28-2022 Exposure to SARS-CoV-2 (event) Not sure [facility] Start: 11-27-2021 End: 05-17-2023 History of Social function [facility] Start: 11-27-2021 End: 05-17-2023 Social connection and isolation panel [facility] Do you belong to any clubs or organizations such as mu-ism groups, unions, fraternal or athletic groups, or school groups? Yes [facility] Are you now , , , , never or living with a partner? [facility] How often to you hav e a drink containing alcohol? 2-4 times a month [facility] How many standard dr inks containing alcohol do you have on a typical day? 1 or 2 [facility] How often do you hav e 6 or more drinks on 1 occasion? Never [facility] How hard is it for y ou to pay for the very basics like food, housing, medical care, and heating Not hard at all [facility] Do you feel stress - tense, restless, nervous, or anxious, or unable to sleep at night because your mind is troubled all the time - these days [OSQ] Only a little [facility] (I/We) worried carie er (my/our) food would run out before (I/we) got money to buy more. Never true [facility] In the past 12 month s, was there a time when you were not able to pay the mortgage or rent on time? No [facility] Start: 09-14-2020 Gender identity Identifies as male gender (finding) [facility] Start: 09-14-2020 Sexual orientation Heterosexual (cortez bradshaw) [facility] Clinical Notes 12-04-2021 to 03-07-2025 Lyn Caban PA - 03/07/2025 12:41 PM EDTTelephone Encounter - Tio Marquez APRN.[facility] - 09/17/2024 10:32 AM ESTTelephone Encounter - Tio Marquez APRN.[facility] - 09/17/2024 10:32 AM EST Note Date & Type Note Facility 03-07-2025 Note HNO ID: [id number] Author: LYN CABAN PA Service: ? Author Type: Physician Operator Type: Progress Notes Filed: 03/07/2025 12:43 Note Text: [facility] Dulce Philomena Barker is a 60 year old male. Patient presents with: Pain: left side neck and jaw pain and swelling x 2.5 days HPI Left-Sided Facial Swelling and Pain: - Onset Saturday with initial soreness near the ear, subsided, then returned Saturday afternoon with significant swelling. - Took one leftover antibiotic, which seemed to reduce swelling temporarily. - Swelling recurred after eating lunch today, described as ballooned. - Pain localized to the end of the jaw below the ear; no dental or jaw pain. - Denies fevers, dysphagia, or dyspnea. - No previous episodes. - Recent dental surgery about a month ago. Review of Systems Constitutional: (-) fever Head: (+) left facial swelling, (+) left facial pain Ears/Nose/Mouth/Throat: (-) dental pain Respiratory: (-) dyspnea Gastrointestinal: (-) dysphagia Musculoskeletal: (-) jaw pain Objective BP 126/74 Pulse 76 Temp 36.1 ?C (96.9 ?F) Resp 16 Wt 79.6 kg (175 lb 7.8 oz) SpO2 97% BMI 25.91 kg/m? Physical Exam Vitals and nursing note reviewed. Constitutional: General: He is not in acute distress. Appearance: Normal appearance. He is not toxic-appearing. HENT: Head: Jaw: Tenderness and swelling present. No malocclusion. Right Ear: Tympanic membrane and ear canal normal. Left Ear: Tympanic membrane and ear canal normal. Mouth/Throat: Mouth: Mucous membranes are moist. Comments: Dentition normal. No tongue or floor of mouth swelling. No trismus. No dental tenderness. Mild tenderness and swelling noted just inferior to the left parotid gland and in the submandibular region just underneath the jaw. No redness. Cardiovascular: Rate and Rhythm: Normal rate and regular rhythm. Pulmonary: Effort: Pulmonary effort is normal. Breath sounds: Normal breath sounds. Skin: General: Skin is warm and dry. Neurological: Mental Status: He is alert. General: No acute distress. HEENT: Left parotid gland swelling, no dental abnormalities, right ear without abnormalities. { 1. Sialadenitis (K11.20) - Intermittent swelling and tenderness in the left parotid region and submental, likely due to sialolithiasis causing obstruction and secondary infection. - Initiated Augmentin to address potential bacterial infection. - Advised use of sour candies or lemon throat lozenges to stimulate salivary flow and facilitate stone expulsion. - Recommended warm or cold compresses to alleviate swelling. - Instructed to seek emergency care if experiencing dysphagia, trismus, or significant difficulty in oral intake. - Prescription sent to [facility] Recording using [employer] software for draft documentation of the visit was discussed with the patient/authorized sales training representative; all questions welcomed and answered. Patient/authorized sales training representative agreed to proceed Differential Diagnoses - Sialoadenitis/parotiditis is more likely for the following reason(s): suggested by HANDP - Torsten's angina is less likely for the following reason(s): HANDP not suggestive Disposition The patient was discharged. Procedures [facility] 03-07-2025 History of Presen t illness Narrative Images from the original note were not included. [facility] Subjective Philomena Barker is a 60 year old male. Patient presents with: Pain: left side neck and jaw pain and swelling x 2.5 days HPI Left-Sided Facial Swelling and Pain: - Onset Saturday with initial soreness near the ear, subsided, then returned Saturday afternoon with significant swelling. - Took one leftover antibiotic, which seemed to reduce swelling temporarily. - Swelling recurred after eating lunch today, described as ballooned. - Pain localized to the end of the jaw below the ear; no dental or jaw pain. - Denies fevers, dysphagia, or dyspnea. - No previous episodes. - Recent dental surgery about a month ago. Review of Systems Constitutional: (-) fever Head: (+) left facial swelling, (+) left facial pain Ears/Nose/Mouth/Throat: (-) dental pain Respiratory: (-) dyspnea Gastrointestinal: (-) dysphagia Musculoskeletal: (-) jaw pain Objective BP 126/74 Pulse 76 Temp 36.1 C (96.9 F) Resp 16 Wt 79.6 kg (175 lb 7.8 oz) SpO2 97% BMI 25.91 kg/m Physical Exam Vitals and nursing note reviewed. Constitutional: General: He is not in acute distress. Appearance: Normal appearance. He is not toxic-appearing. HENT: Head: Jaw: Tenderness and swelling present. No malocclusion. Right Ear: Tympanic membrane and ear canal normal. Left Ear: Tympanic membrane and ear canal normal. Mouth/Throat: Mouth: Mucous membranes are moist. Comments: Dentition normal. No tongue or floor of mouth swelling. No trismus. No dental tenderness. Mild tenderness and swelling noted just inferior to the left parotid gland and in the submandibular region just underneath the jaw. No redness. Cardiovascular: Rate and Rhythm: Normal rate and regular rhythm. Pulmonary: Effort: Pulmonary effort is normal. Breath sounds: Normal breath sounds. Skin: General: Skin is warm and dry. Neurological: Mental Status: He is alert. General: No acute distress. HEENT: Left parotid gland swelling, no dental abnormalities, right ear without abnormalities. { 1. Sialadenitis (K11.20) - Intermittent swelling and tenderness in the left parotid region and submental, likely due to sialolithiasis causing obstruction and secondary infection. - Initiated Augmentin to address potential bacterial infection. - Advised use of sour candies or lemon throat lozenges to stimulate salivary flow and facilitate stone expulsion. - Recommended warm or cold compresses to alleviate swelling. - Instructed to seek emergency care if experiencing dysphagia, trismus, or significant difficulty in oral intake. - Prescription sent to [facility] Recording using [employer] software for draft documentation of the visit was discussed with the patient/authorized sales training representative; all questions welcomed and answered. Patient/authorized sales training representative agreed to proceed Differential Diagnoses - Sialoadenitis/parotiditis is more likely for the following reason(s): suggested by H&P - Torsten's angina is less likely for the following reason(s): H&P not suggestive Disposition The patient was discharged. Procedures documented in this encounter [facility] 09-17-2024 Telephone encounter Note Rx sent for 30 days The following approved medication requests have been transmitted electronically. Requested Prescriptions Signed Prescriptions Disp Refills lisinopril (ZESTRIL) 10 mg tablet 30 tablet 0 Sig: Take 1 tablet by mouth once daily. Tio Marquez APRN.CNP [facility] 09-17-2024 Miscellaneous Notes Rx sent for 30 days The following approved medication requests have been transmitted electronically. Requested Prescriptions Signed Prescriptions Disp Refills lisinopril (ZESTRIL) 10 mg tablet 30 tablet 0 Sig: Take 1 tablet by mouth once daily. Tio Marquez APRN.CNP Pt unable to make appt as scheduled next week in the evening. Are you willing to send in #30 day supply to get pt through until being seen. Pt last appt 05/2023. Offered to assist pt in making appt. Please advise. Debbie Caballero MA Appt scheduled. Pt notified via [facility] message. Nathanael Richardson LPN See pt message. SARAH 06/14/23 and no upcoming appt. Pt advised needed an appt. documented in this encounter [facility] 09-17-2024 Telephone encounter Note Pt unable to make appt as scheduled next week in the evening. Are you willing to send in #30 day supply to get pt through until being seen. Pt last appt 05/2023. Offered to assist pt in making appt. Please advise. Debbie Caballero MA [facility] 09-16-2024 Telephone encounter Note Appt scheduled. Pt notified via [facility] message. Nathanael Richardson LPN [facility] 09-16-2024 Telephone encounter Note See pt message. SARAH 06/14/23 and no upcoming appt. Pt advised needed an appt. [facility] 09-15-2024 Instructions Paige Miller PA-C - 09/15/2024 11:41 AM EST > Scrotum US - orders placed > Follow up for discussion of abnormal results requiring procedure documented in this encounter [facility] 09-15-2024 Note HNO ID: [id number] Author: PAIGE MILLER PA-C Service: ? Author Type: Physician Operator Type: Progress Notes Filed: 09/15/2024 20:48 Note Text: [facility] NEW PATIENT CLINIC NOTE (M) SERVICE DATE: September 15, 2024 NAME: Philomena Barker GENDER: male CHIEF COMPLAINT: Right side Scrotum enlargement HISTORY OF PRESENT ILLNESS: Philomena Barker is a 59 year old male a new patient here for Right side Scrotum enlargement The patient reports having right sided scrotum cyst iin 2021, benign and no therapy at that time Now the cyst is enlarging some and becoming more concerning for discomfort and wheter he may have other testicle or sctou issues like testicle cancer reSSURANCE GIVEN THAT WE WILL RECHECK THE us AND report back the result after final LUTS: No NewLUTs Other symptoms: ED - no LABS: PSA Screening (ng/mL) Date Value 06/10/2023 0.82 No results found for: TESTOST No results found for: HCT PSA Screening (ng/mL) Date Value 06/10/2023 0.82 Creatinine Date Value Ref Range Status 06/10/2023 1.14 0.73 - 1.22 mg/dL Final 07/07/2020 1.03 0.73 - 1.22 mg/dL Final MEDICATIONS: FLUoxetine (PROZAC) 20 mg capsule Take 1 capsule by mouth once daily. lisinopril (ZESTRIL) 10 mg tablet Take 1 tablet by mouth once daily. buPROPion XL (WELLBUTRIN XL) 150 mg 24 hr tablet Take 1 tablet by mouth once daily. PAST MEDICAL HISTORY: PAST MEDICAL HISTORY Diagnosis Date Anxiety and depression Elevated bilirubin 06/14/2023 Essential hypertension, benign Hydrocele 12/11/2021 Bilateral- small PAST SURGICAL HISTORY: PAST SURGICAL HISTORY Procedure Laterality Date COLONOSCOPY SCRN NOT HIGH RISK 09/27/2020 EXCISION BENIGN TUMOR/CYST lipoma at left shoulder TONSILLECTOMY HX FAMILY HISTORY: FAMILY HISTORY Adopted: Yes SOCIAL HISTORY: Social Connections: Moderately Integrated (11/27/2021) Social Connection and Isolation Panel [NHANES] Frequency of Communication with Friends and Family: Once a week Frequency of Social Gatherings with Friends and Family: Twice a week Attends Scientologist Services: Never Active Member of Clubs or Organizations: Yes Attends Club or Organization Meetings: More than 4 times per year Marital Status: REVIEW OF SYSTEMS: GENERAL: No fever, chills, weight loss, or fatigue. ENMT: Negative CARDIOVASCULAR:NO CHEST PAIN, PALPITATIONS, ANKLE EDEMA RESPIRATORY: No chronic cough, wheezing, dyspnea, hemoptysis. GENITOURINARY: SEE HPI MUSCULOSKELETAL:NO CHRONIC BACK PAIN, ARTHRITIS, CHRONIC NECK PAIN SKIN: NO VARICOSE VEINS, RASH, ABNORMAL ITCHING HEME/LYMPH/IMMUNE:Negative for prolonged bleeding, bruising easily or swollen nodes NEUROLOGICAL: NO HEADACHES, NUMBNESS, SEIZURES, STROKE DIABETES: No All other systems reviewed and are negative PHYSICAL EXAMINATION: Blood pressure 158/98, pulse 72, temperature 36.1 ?C (97 ?F), temperature source Temporal, resp. rate 14, height 175.3 cm (5' 9), weight 83 kg (183 lb), SpO2 99%. GENERAL: WNL nutrition, no deformities, healthy appearing NEURO: Awake, alert and oriented x 3 and Normal gait PSYCH: No signs of depression, anxiety, or agitation ENMT (Ear, Nose, Mouth, Throat): No masses, adenopathy, icterus. Thyroid nonpalpable RESP: NL effort, no retractions or purse-lip breathing. CV: No extremity swelling, varices, edema, pallor, erythema GASTROINTESTINAL: Soft, nontender, nondistended, no masses. HERNIAS: None SKIN: No rash, lesions No palpable lymphadenopathy MUSCULOSKELETAL: Extremities normal. No deformities, edema, clubbing or skin discoloration. GENITOURINARY: MALE EXAM: Epididymis AND testes: normal size, position, right sided Scrotum Cyst moderate in size with no pain on exam Urethra AND meatus: normal size AND position w/o lesion or discharge Penis: circumcised, w/o plaques, lesions, masses, or deformities. PROBLEM LIST REVIEW: Yes LABS: Results for orders placed or performed in visit on 06/10/23 COMP METABOLIC PANEL Result Value Ref Range Protein, Total 6.7 6.3 - 8.0 g/dL Albumin 4.2 3.9 - 4.9 g/dL Calcium, Total 9.5 8.5 - 10.2 mg/dL Bilirubin, Total 1.7 (H) 0.2 - 1.3 mg/dL Alkaline Phosphatase 82 38 - 113 U/L AST 20 14 - 40 U/L ALT 22 10 - 54 U/L Glucose 95 74 - 99 mg/dL BUN 17 9 - 24 mg/dL Creatinine 1.14 0.73 - 1.22 mg/dL Sodium 141 136 - 144 mmol/L Potassium 4.5 3.7 - 5.1 mmol/L Chloride 104 97 - 105 mmol/L CO2 26 22 - 30 mmol/L Anion Gap 11 9 - 18 mmol/L Estimated Glomerular Filtration Rate 75 >=60 mL/min/1.73m? PSA/PROSTSPECAG SCRN Result Value Ref Range PSA Screening 0.82 <2.60 ng/mL IMAGING: Scrotum US 11/24/2021 IMPRESSION: 1. Normal testicles. 2. Bilateral epididymal head cysts. 3. 8.4 cystic structure within the right scrotal sac adjacent to the right epididymal head which may reflect an encysted hydrocele rather than an (more content not included)... [facility] 09-15-2024 History of Presen t illness Narrative Images from the original note were not included. [facility] NEW PATIENT CLINIC NOTE (M) SERVICE DATE: September 15, 2024 NAME: Philomena Barker GENDER: male CHIEF COMPLAINT: Right side Scrotum enlargement HISTORY OF PRESENT ILLNESS: Philomena Barker is a 59 year old male a new patient here for Right side Scrotum enlargement The patient reports having right sided scrotum cyst iin 2021, benign and no therapy at that time Now the cyst is enlarging some and becoming more concerning for discomfort and wheter he may have other testicle or sctou issues like testicle cancer reSSURANCE GIVEN THAT WE WILL RECHECK THE us AND report back the result after final LUTS: No NewLUTs Other symptoms: ED - no LABS: PSA Screening (ng/mL) Date Value 06/10/2023 0.82 No results found for: TESTOST No results found for: HCT PSA Screening (ng/mL) Date Value 06/10/2023 0.82 Creatinine Date Value Ref Range Status 06/10/2023 1.14 0.73 - 1.22 mg/dL Final 07/07/2020 1.03 0.73 - 1.22 mg/dL Final MEDICATIONS: FLUoxetine (PROZAC) 20 mg capsule Take 1 capsule by mouth once daily. lisinopril (ZESTRIL) 10 mg tablet Take 1 tablet by mouth once daily. buPROPion XL (WELLBUTRIN XL) 150 mg 24 hr tablet Take 1 tablet by mouth once daily. PAST MEDICAL HISTORY: PAST MEDICAL HISTORY Diagnosis Date Anxiety and depression Elevated bilirubin 06/14/2023 Essential hypertension, benign Hydrocele 12/11/2021 Bilateral- small PAST SURGICAL HISTORY: PAST SURGICAL HISTORY Procedure Laterality Date COLONOSCOPY SCRN NOT HIGH RISK 09/27/2020 EXCISION BENIGN TUMOR/CYST lipoma at left shoulder TONSILLECTOMY HX FAMILY HISTORY: FAMILY HISTORY Adopted: Yes SOCIAL HISTORY: Social Connections: Moderately Integrated (11/27/2021) Social Connection and Isolation Panel [NHANES] Frequency of Communication with Friends and Family: Once a week Frequency of Social Gatherings with Friends and Family: Twice a week Attends Scientologist Services: Never Active Member of Clubs or Organizations: Yes Attends Club or Organization Meetings: More than 4 times per year Marital Status: REVIEW OF SYSTEMS: GENERAL: No fever, chills, weight loss, or fatigue. ENMT: Negative CARDIOVASCULAR:NO CHEST PAIN, PALPITATIONS, ANKLE EDEMA RESPIRATORY: No chronic cough, wheezing, dyspnea, hemoptysis. GENITOURINARY: SEE HPI MUSCULOSKELETAL:NO CHRONIC BACK PAIN, ARTHRITIS, CHRONIC NECK PAIN SKIN: NO VARICOSE VEINS, RASH, ABNORMAL ITCHING HEME/LYMPH/IMMUNE:Negative for prolonged bleeding, bruising easily or swollen nodes NEUROLOGICAL: NO HEADACHES, NUMBNESS, SEIZURES, STROKE DIABETES: No All other systems reviewed and are negative PHYSICAL EXAMINATION: Blood pressure 158/98, pulse 72, temperature 36.1 C (97 F), temperature source Temporal, resp. rate 14, height 175.3 cm (5' 9), weight 83 kg (183 lb), SpO2 99%. GENERAL: WNL nutrition, no deformities, healthy appearing NEURO: Awake, alert and oriented x 3 and Normal gait PSYCH: No signs of depression, anxiety, or agitation ENMT (Ear, Nose, Mouth, Throat): No masses, adenopathy, icterus. Thyroid nonpalpable RESP: NL effort, no retractions or purse-lip breathing. CV: No extremity swelling, varices, edema, pallor, erythema GASTROINTESTINAL: Soft, nontender, nondistended, no masses. HERNIAS: None SKIN: No rash, lesions No palpable lymphadenopathy MUSCULOSKELETAL: Extremities normal. No deformities, edema, clubbing or skin discoloration. GENITOURINARY: MALE EXAM: Epididymis & testes: normal size, position, right sided Scrotum Cyst moderate in size with no pain on exam Urethra & meatus: normal size & position w/o lesion or discharge Penis: circumcised, w/o plaques, lesions, masses, or deformities. PROBLEM LIST REVIEW: Yes LABS: Results for orders placed or performed in visit on 06/10/23 COMP METABOLIC PANEL Result Value Ref Range Protein, Total 6.7 6.3 - 8.0 g/dL Albumin 4.2 3.9 - 4.9 g/dL Calcium, Total 9.5 8.5 - 10.2 mg/dL Bilirubin, Total 1.7 (H) 0.2 - 1.3 mg/dL Alkaline Phosphatase 82 38 - 113 U/L AST 20 14 - 40 U/L ALT 22 10 - 54 U/L Glucose 95 74 - 99 mg/dL BUN 17 9 - 24 mg/dL Creatinine 1.14 0.73 - 1.22 mg/dL Sodium 141 136 - 144 mmol/L Potassium 4.5 3.7 - 5.1 mmol/L Chloride 104 97 - 105 mmol/L CO2 26 22 - 30 mmol/L Anion Gap 11 9 - 18 mmol/L Estimated Glomerular Filtration Rate 75 >=60 mL/min/1.73m PSA/PROSTSPECAG SCRN Result Value Ref Range PSA Screening 0.82 <2.60 ng/mL IMAGING: Scrotum US 11/24/2021 IMPRESSION: 1. Normal testicles. 2. Bilateral epididymal head cysts. 3. 8.4 cystic structure within the right scrotal sac adjacent to the right epididymal head which may reflect an encysted hydrocele rather than an exophytic cyst arising from the epididymal head. Clinical correlation with physical examination to see if it courses along the course of the spermatic cord is requested. Scrotum US - Pending ASSESSMENT/PLAN: 1. Cyst of scrotum - ICD9: 706.2, ICD10: L72.9 > Recommend updated Scrotum US - orders placed Chronic, but no increase in pain or concerns > Follow-up to be determined by testing ordered today > Will contact patient with the Results & Recommendations once testing is completed Consultation requested by Tio Marquez for an opinion regarding Philomena Barker patient and my final recommendations will be communicated back to the requesting physician by way of shared Medical record or letter via US mail. DUTCH Hewitt, JOSE, HECTOR documented in this encounter [facility] 09-15-2024 Telephone encounter Note Patient present for appointment. Has not been seen for testicular concern since US done 12/11/2021. Zach Rosario LPN [facility] 09-15-2024 Miscellaneous Notes Patient present for appointment. Has not been seen for testicular concern since US done 12/11/2021. Zach Rosario LPN Called patient. No answer- left message. Patient scheduled for 09/15/2024 in urology for testicular growth. Has he been seen elsewhere and if so where? Zach Rosario LPN documented in this encounter [facility] 09-10-2024 Telephone encounter Note Called patient. No answer- left message. Patient scheduled for 09/15/2024 in urology for testicular growth. Has he been seen elsewhere and if so where? Zach Rosario LPN [facility] 06-14-2023 History of Presen t illness Narrative Chief Complaint Patient presents with: 4 week f/u HPI Philomena Barker is a 58 year old male who presents here today for Chronic Medical Conditions. follow up for anxiety, depression, HTN. Patient is here for 4-week follow-up. Last month we did start him on Wellbutrin. This was in addition to his Prozac. He had complaints of low moods, low motivation, feeling tired. Some feelings of fogginess., Some ongoing anxiety related to work. At this time, he states his sleep is okay. Sleep now is not interrupted. The fogginess has subsided. Denies any side effects. Denies any SI/HI. Patient also was restarted on lisinopril. History of hypertension but had stopped this medication. He is without chest pain, syncope, shortness of breath, headaches, dizziness. Reviewed recent blood work with patient. PSA is normal. Had elevation in bilirubin. Stating that he has had previously elevated blood bilirubin. Reviewing past blood work, this is confirmed. He has no jaundice at this point. Past medical history, appointments, medications, allergies reviewed. EXAM: BP 132/93 Pulse 67 Resp 16 Wt 89 kg (196 lb 3.2 oz) SpO2 98% BMI 28.56 kg/m General Appearance: Well appearing, alert, in no acute distress, well-hydrated, well nourished.. Lungs: Lungs clear to auscultation. No wheezing, rhonchi, rales.. Heart: RRR without murmur, gallop, or rubs. No ectopy. Component Latest Ref Rng & Units 06/10/2023 Protein, Total 6.3 - 8.0 g/dL 6.7 Albumin 3.9 - 4.9 g/dL 4.2 Calcium 8.5 - 10.2 mg/dL 9.5 Bilirubin, Total 0.2 - 1.3 mg/dL 1.7 (H) Alkaline Phosphatase 38 - 113 U/L 82 AST 14 - 40 U/L 20 ALT 10 - 54 U/L 22 Glucose 74 - 99 mg/dL 95 BUN 9 - 24 mg/dL 17 Creatinine 0.73 - 1.22 mg/dL 1.14 Sodium 136 - 144 mmol/L 141 Potassium 3.7 - 5.1 mmol/L 4.5 Chloride 97 - 105 mmol/L 104 CO2 22 - 30 mmol/L 26 Anion Gap 9 - 18 mmol/L 11 eGFR >=60 mL/min/1.73m 75 PSA Screening <2.60 ng/mL 0.82 ASSESSMENT/PLAN: 1. Anxiety and depression - ICD9: 300.00, 311, ICD10: F41.9, F32.A (primary diagnosis) -Improved. Continue with Prozac and Wellbutrin over the wintertime. Consider discontinuing Wellbutrin in the springtime. - BUPROPION XL 150 MG TAB 2. Essential hypertension, benign - ICD9: 401.1, ICD10: I10 - Controlled - Continue current medications - Recommend home blood pressure monitoring, to bring results to next visit - Encouraged sodium restriction, DASH or Mediterranean diet - Recommend regular aerobic exercise - LISINOPRIL 10 MG TABLET - COMP METABOLIC PANEL 3. Elevated bilirubin - ICD9: 277.4, ICD10: R17 -Keep hydrated, repeat CMP. Discussed with him likely Gilbert syndrome. Tio Marquez APRN.CNP RTO in 6 months, sooner if needed. This note was partly generated using [employer] voice recognition dictation and may contain some misspelled or inaccurate words missed on review. documented in this encounter [facility] 06-14-2023 Instructions Tio Marquez APRN.CNP - 06/14/2023 8:15 AM EDT Continue current medications Repeat labs in 6 months Tio Marquez APRN.CNP documented in this encounter [facility] 05-17-2023 History of Presen t illness Narrative Chief Complaint Patient presents with: Medication Follow-up HPI Philomena Barker is a 58 year old male who presents here today for Chronic Medical Conditions. Patient here for complaints of increased symptoms of low moods, low motivation, feeling of tiredness. He is not really cycling and running prior, but not he is not. No motivation to get things done around the house. Ongoing 7-8 months. Some times he feels fine. Some times he feels foggy. He does have some complaints of anxiety. Mainly related to work. He has asked for transfer. Might take 2 to 3 months. Anxious starts usually in the morning when he first wakes. Rumination is present. Improves as he moves through the day. Previously on Effexor. Now on prozac. Blood pressure is elevated today on exam. Elevated again with repeat. He previously was on lisinopril in the past but had controlled blood pressures and we discontinued. At this time he denies any chest pain or shortness of breath. He agrees that he probably needs blood pressure control. Past medical history, appointments, medications, allergies reviewed. EXAM: BP (!) 170/124 Pulse 83 Resp 16 Wt 88.8 kg (195 lb 12.8 oz) SpO2 98% BMI 28.50 kg/m General Appearance: Well appearing, alert, in no acute distress, well-hydrated, well nourished.. Lungs: Lungs clear to auscultation. No wheezing, rhonchi, rales.. Heart: RRR without murmur, gallop, or rubs. No ectopy. ASSESSMENT/PLAN: 1. Anxiety and depression - ICD9: 300.00, 311, ICD10: F41.9, F32.A (primary diagnosis) -Symptoms consistent with worsening depression. Does have ongoing anxiety. Add Wellbutrin to his medications. Continue Prozac. Consider increasing Prozac in the future if anxiety continues to be a problem. - BUPROPION XL 150 MG TAB 2. Essential hypertension, benign - ICD9: 401.1, ICD10: I10 - New diagnosis - Start lisinopril - Recommend home blood pressure monitoring, to bring results to next visit - Encouraged sodium restriction, DASH or Mediterranean diet - Recommend regular aerobic exercise - LISINOPRIL 10 MG TABLET - COMP METABOLIC PANEL 3. Screening for prostate cancer - ICD9: V76.44, ICD10: Z12.5 - PSA/PROSTSPECAG YUMIKON Tio Marquez APRN.TECHNOLOGY ARCHITECT RTO in 1 months, sooner if needed. This note was partly generated using [employer] voice recognition dictation and may contain some misspelled or inaccurate words missed on review. documented in this encounter [facility] 03-28-2022 Instructions Kanchan Vásquez APRN.CNP - 03/28/2022 8:44 AM EDT 1.) Try steroid burst, take daily for the next 5 days. 2.) may continue with OTC cold and cough medication as needed. Try to coat the throat. Cool liquids, tea, cough drops. 3.) If hoarseness does not improve recommend consult with ENT. 4.) Follow up as needed. Ceprocol cough drops have numbing agent in them. documented in this encounter [facility] 03-28-2022 History of Presen t illness Narrative This is a 57 year old male who presents today with: Patient presents with: Acute Visit: laryngitis and cough HISTORY OF PRESENT ILLNESS: Philomena Barker is a 57 year old male. Patient presents with: Acute Visit: laryngitis and cough Here in the office for urgent care follow-up. Was seen in urgent care on 03/18/2022 and 03/22/22 was diagnosed with laryngitis. Started on 9-day taper of prednisone and Augmentin. Refers he feels better but voice has not improved. Still a whisper. Having ongoing non-productive cough. No sore throat, fever, chills. PAST MEDICAL HISTORY: PAST MEDICAL HISTORY Diagnosis Date Essential hypertension, benign PAST SURGICAL HISTORY Procedure Laterality Date COLONOSCOPY SCRN NOT HIGH RISK 09/27/2020 EXCISION BENIGN TUMOR/CYST lipoma at left shoulder TONSILLECTOMY HX ALLERGIES Seasonal Allergies MEDICATIONS Current Outpatient Medications Medication Sig predniSONE (DELTASONE) 10 mg tablet Take 4 tabs daily for 3 days, then 2 tabs daily for 3 days, then 1 tab daily for 3 days with food. FLUoxetine (PROZAC) 20 mg capsule Take 1 capsule by mouth once daily. No current facility-administered medications for this visit. FAMILY HISTORY Adopted: Yes Social History Tobacco Use Smoking status: Never Smoker Smokeless tobacco: Never Used Substance Use Topics Alcohol use: Yes Comment: 1-2 times a month Drug use: Not Currently REVIEW OF SYSTEMS GENERAL: No weight loss, malaise or fevers/chills HEENT: Negative for frequent or significant headaches, No changes in hearing or vision. NECK: Negative for lumps, goiter, pain and significant neck swelling RESPIRATORY: Negative for cough, hemoptysis, wheezing, dyspnea or shortness of breath CARDIOVASCULAR: Negative for chest pain, leg swelling, orthopnea, or palpitations GI: No nausea, vomiting, or diarrhea/constipation. No hematochezia/melena. No heartburn or reflux symptoms. : No history of dysuria, frequency or incontinence MUSCULOSKELETAL: Negative for joint pain or swelling. SKIN: Negative for lesions, rash, and itching ENDOCRINE: Negative for cold or heat intolerance, polyuria, polydipsia and goiter NEURO: No history of headaches, syncope, paralysis, seizures or tremors MOOD: Negative for depression, anxiety, or suicidal ideation. EXAM: BP 110/80 Pulse 85 Resp 16 Wt 84.4 kg (186 lb) SpO2 96% BMI 27.07 kg/m PHYSICAL EXAM: General Appearance: Well appearing, alert, in no acute distress, well-hydrated, well nourished.. Skin: Skin color, texture, turgor normal, no suspicious rashes or lesions. Head: Normocephalic, no masses, lesions, tenderness or abnormalities. Eyes: Anicteric sclera. Extraocular movements are intact. Ears: External ears normal, canals clear. TM's pearly blake. Nose/Sinuses: Nares normal, septum midline, mucosa normal, no drainage or sinus tenderness. Oropharynx: Lips, mucosa, and tongue normal, teeth and gums normal, oropharynx normal. Neck: Supple, no adenopathy; thyroid symmetric, normal size, no bruits. Lungs: Lungs clear to auscultation. No wheezing, rhonchi, rales. Heart: RRR without murmur, gallop, or rubs. No ectopy. Extremities: No deformities, edema, skin discoloration, clubbing or cyanosis. Good capillary refill. Peripheral Pulses: Normal, Capillary refill <2secs, strong peripheral pulses, Pulses palpable. Neurologic: Gait normal. Reflexes normal and symmetric. Sensation grossly intact. ASSESSMENT/PLAN: 1. Hoarseness of voice - ICD9: 784.42, ICD10: R49.0 (primary diagnosis) - Start Prednisone burst, 40 mg daily for 5 days. - Continue with supportive care at home. - May continue to use [id number] cold and cough medication as needed for symptom management. - Recommend resting the voice as much as possible. - If symptoms do not improve recommend consult with ENT. - CONSULT TO ENT - PREDNISONE 20 MG TABLET 2. Laryngitis - ICD9: 464.00, ICD10: J04.0 - Same plan as #1. Follow-up as needed or sooner if symptoms get worse or do not improve. Discussed treatment plan and patient voices understanding. Patient's questions answered appropriately. Medications and potential side effects were discussed and patient voices understanding. Kanchan Vásquez APRN.MARIKA This note was partially generated using [employer] voice recognition system. Note was reviewed for accuracy. There may be minor misspellings or grammar miscues with [employer] voice recognition. documented in this encounter [facility] 03-22-2022 History of Presen t illness Narrative 03/22/2022 Patient presents with: Cough: Pt taking ATB, prednisone,reported, reported loss of voice x2 days denied SOB, chest pain SUBJECTIVE: This is a 57 year old that is here today for Complaint(s) of hoarseness x 2 days. Started with cold symptoms per patient-cough, congestion, and then lost his voice. Denies fever/chills, SOB, wheezing, vomiting, diarrhea. Still taking prednisone and Augmentin prescribed 5 days ago. CXR was unavailbe at that time per note. Overall feeling better with a non-producitve cough and hoarseness. PAST MEDICAL HISTORY Diagnosis Date Essential hypertension, benign ALLERGIES Seasonal Allergies MEDICATIONS Current Outpatient Medications Medication Sig amoxicillin-clavulanic acid (AUGMENTIN) 875-125 mg per tablet Take 1 tablet by mouth twice daily for 7 days. predniSONE (DELTASONE) 10 mg tablet Take 4 tabs daily for 3 days, then 2 tabs daily for 3 days, then 1 tab daily for 3 days with food. FLUoxetine (PROZAC) 20 mg capsule Take 1 capsule by mouth once daily. No current facility-administered medications for this visit. SOCIAL HISTORY Social History Tobacco Use Smoking status: Never Smoker Smokeless tobacco: Never Used Substance Use Topics Alcohol use: Yes Comment: 1-2 times a month Drug use: Not Currently REVIEW OF SYSTEMS See HPI OBJECTIVE: BP 126/78 Pulse 81 Temp 36.7 C (98 F) Resp 16 Wt 85.9 kg (189 lb 6.4 oz) SpO2 97% BMI 27.57 kg/m APPEARANCE Well appearing, alert, in no acute distress, well-hydrated, well nourished. + hoarseness noted. EYES PERRLA, conjunctiva and sclera normal. EARS External ears normal, canals clear. TMs nomral VILMA NOSE/SINUS Nares normal. Septum midline. Mucosa normal. No drainage or sinus tenderness. THROAT mild posterior pharyngeal erythema, no exudate. Uvula midline NECK Supple, no adenopathy HEART RRR with normal S1 and S2 LUNG clear to auscultation, No wheezing, rhonchi, rales. ASSESSMENT/PLAN: 1. Hoarseness of voice - ICD9: 784.42, ICD10: R49.0 Suspect Laryngitis, viral etiology Can continue prednisone F/u in 7-10 days if not improving, sooner if worsening Recommend voice rest, supportive care with tea, throat lozenges Reviewed red flags and when to seek care sooner. The patient indicates understanding of these issues and agrees with the plan. HECTOR Terry PA-C documented in this encounter [facility] 03-18-2022 Instructions Juani Brice APRN.TECHNOLOGY ARCHITECT - 03/18/2022 9:50 AM EDT RESPIRATORY INFECTION GENERAL INFORMATION: An upper respiratory tract infection, or cold, is a viral infection of the airway passages. It can be caused by any one of almost 200 different viruses. Common symptoms include a runny or stuffy nose, sneezing, watery eyes, sore throat, cough, and slight fever. Colds are contagious, especially during the first 3 or 4 days and cannot be cured by antibiotics. They are spread by coughs, sneezes, and direct contact, especially [id number]. A respiratory tract infection usually clears up in a few days, but some people may be sick for a week or two. INSTRUCTIONS: 1. Be careful not to blow your nose too hard because this may cause a nosebleed. 2. Use a cool-mist humidifier (vaporizer) to increase air moisture. This will make it easier for you to breathe. Do not use hot steam. 3. Rest as much as possible and get plenty of sleep. 4. Wash your hands often, especially after you blow your nose. Cover your mouth and nose with a tissue when you sneeze or cough. 5. Drink plenty of clear fluids (8 glasses a day) such as water, fruit juice, tea, clear soups, and carbonated beverages. CONTACT YOUR DOCTOR IF : 1. Your fever lasts more than 3 days. 2. You have a sore throat that gets worse or you see white or yellow spots in your throat. 3. Your cough gets worse or lasts more than 10 days. 4. You develop a rash anywhere on your skin. 5. You have an earache or a headache. 6. You have thick greenish or yellowish discharge from your nose. RETURN IMMEDIATELY IF: 1. You cough up thick yellow, green, blake, or bloody sputum. 2. You have difficulty breathing, pain in your chest, or your skin or nails look blake or blue. 3. You have shaking chills or a temperature over 102 F (39 C). documented in this encounter [facility] 03-18-2022 History of Presen t illness Narrative This note was created using [employer]. Subjective Philomena Barker is a 57 year old male. 57 year old male with PMH HTN presents for illness. Acute onset March 07 +sore throat +cough, dry non productive +chest congestion Denies CP. Denies hemoptysis Denies N/V/D Denies fatigue. Denies body aches. Utilized Mucinex and Advil Cold and Flu States cough keeps him up at night. Denies tobacco usage. The history is provided by the patient. No instruction librarian was used. URI He complains of cough. There is no chest tightness, difficulty breathing, frequent throat clearing, hemoptysis, hoarse voice, shortness of breath, sputum production or wheezing. This is a new problem. The current episode started 1 to 4 weeks ago. The problem occurs constantly. The problem has been gradually worsening. The cough is non-productive. Associated symptoms include malaise/fatigue, nasal congestion and a sore throat. Pertinent negatives include no appetite change, chest pain, dyspnea on exertion, ear congestion, ear pain, fever, headaches, heartburn, myalgias, orthopnea, PND, postnasal drip, rhinorrhea, sneezing, sweats, trouble swallowing or weight loss. His symptoms are aggravated by nothing. His symptoms are alleviated by nothing. He reports no improvement on treatment. There are no known risk factors for lung disease. There is no history of asthma, bronchiectasis, bronchitis, COPD, emphysema or pneumonia. PAST MEDICAL HISTORY Diagnosis Date Essential hypertension, benign PAST SURGICAL HISTORY Procedure Laterality Date COLONOSCOPY SCRN NOT HIGH RISK 09/27/2020 EXCISION BENIGN TUMOR/CYST lipoma at left shoulder TONSILLECTOMY HX ALLERGIES Seasonal Allergies MEDICATIONS FLUoxetine (PROZAC) 20 mg capsule Take 1 capsule by mouth once daily. amoxicillin-clavulanic acid (AUGMENTIN) 875-125 mg per tablet Take 1 tablet by mouth twice daily for 7 days. predniSONE (DELTASONE) 10 mg tablet Take 4 tabs daily for 3 days, then 2 tabs daily for 3 days, then 1 tab daily for 3 days with food. FAMILY HISTORY Adopted: Yes Social History Tobacco Use Smoking status: Never Smoker Smokeless tobacco: Never Used Substance Use Topics Alcohol use: Yes Comment: 1-2 times a month Drug use: Not Currently Review of Systems Constitutional: Positive for fatigue and malaise/fatigue. Negative for appetite change, diaphoresis, fever and weight loss. HENT: Positive for congestion and sore throat. Negative for ear pain, hoarse voice, postnasal drip, rhinorrhea, sinus pressure, sinus pain, sneezing and trouble swallowing. Eyes: Negative for photophobia, pain, discharge, redness, itching and visual disturbance. Respiratory: Positive for cough. Negative for apnea, hemoptysis, sputum production, choking, chest tightness, shortness of breath and wheezing. Cardiovascular: Negative for chest pain, dyspnea on exertion, palpitations, leg swelling and PND. Gastrointestinal: Negative for abdominal pain, diarrhea, heartburn, nausea and vomiting. Musculoskeletal: Negative for arthralgias, back pain, gait problem and myalgias. Skin: Negative for color change, pallor, rash and wound. Allergic/Immunologic: Negative for environmental allergies, food allergies and immunocompromised state. Neurological: Negative for headaches. Hematological: Negative for adenopathy. Does not bruise/bleed easily. Psychiatric/Behavioral: Negative for agitation and behavioral problems. Objective BP 142/98 Pulse 86 Temp 36.4 C (97.6 F) Resp 16 Wt 85.7 kg (189 lb) SpO2 98% BMI 27.51 kg/m Physical Exam Vitals and nursing note reviewed. Constitutional: General: He is not in acute distress. Appearance: Normal appearance. He is not ill-appearing, toxic-appearing or diaphoretic. HENT: Head: Normocephalic and atraumatic. Right Ear: External ear normal. Left Ear: External ear normal. Ears: Comments: Mild TM erythema bilaterally noted Nose: Nose normal. No congestion or rhinorrhea. Mouth/Throat: Mouth: Mucous membranes are moist. Pharynx: Oropharynx is clear. Posterior oropharyngeal erythema (marked posterior erythema. Uvula midline Handling secretions) present. No oropharyngeal exudate. Eyes: General: Right eye: No discharge. Left eye: No discharge. Extraocular Movements: Extraocular movements intact. Conjunctiva/sclera: Conjunctivae normal. Pupils: Pupils are equal, round, and reactive to light. Cardiovascular: Rate and Rhythm: Normal rate and regular rhythm. Pulses: Normal pulses. Heart sounds: Normal heart sounds. No murmur heard. No friction rub. No gallop. Pulmonary: Effort: Pulmonary effort is normal. No respiratory distress. Breath sounds: Normal breath sounds. No stridor. No wheezing, rhonchi or rales. Chest: Chest wall: No tenderness. Abdominal: General: Abdomen is flat. There is no distension. Palpations: Abdomen is soft. There is no mass. Tenderness: There is no abdominal tenderness. There is no guarding or rebound. Hernia: No hernia is present. Musculoskeletal: General: No swelling, tenderness, deformity or signs of injury. Normal range of motion. Cervical back: Normal range of motion and neck supple. No rigidity or tenderness. Right lower leg: No edema. Left lower leg: No edema. Lymphadenopathy: Cervical: No cervical adenopathy. Skin: General: Skin is warm and dry. Capillary Refill: Capillary refill takes less than 2 seconds. Coloration: Skin is not jaundiced or pale. Findings: No bruising, lesion or rash. Neurological: General: No focal deficit present. Mental Status: He is alert and oriented to person, place, and time. Cranial Nerves: No cranial nerve deficit. Sensory: No sensory deficit. Motor: No weakness. Coordination: Coordination normal. Gait: Gait normal. Deep Tendon Reflexes: Reflexes normal. Psychiatric: Mood and Affect: Mood normal. Behavior: Behavior normal. Thought Content: Thought content normal. Assessment and Plan ASSESSMENT/PLAN: 1. URI, acute - ICD9: 465.9, ICD10: J06.9 - Symptomatic treatment with prn analgesia - Supportive care with fluids and rest - The patient may also use OTC cough and cold meds as needed, warm salt water gargles, throat lozenges and/or OTC throat spray as needed, nasal saline gtts and suction prn and given that symptoms are worsening will cover with Augmentin No xray available at time of presentation RX Prednisone - Follow up in 3-5 days if symptoms persist or sooner if worsening of symptoms - Discussed testing for COVID with patient, although its been 11 days and treatment would not change related to that Juani Brice APRN.MARIKA documented in this encounter [facility] 12-12-2021 Miscellaneous Notes Pt notified. Transferred to PSR to set up urology appt. Rika Yao Ma Message left for pt to call back for results. Rika Yao MA Please notify patient that his testicular ultrasound does show a cystic structure in his right scrotum. Due to the size of it I would recommend getting a Urology evaluation to see if they would recommend treatment. Lilia Montero MD documented in this encounter [facility] 12-11-2021 History of Presen t illness Narrative Radiology Service Progress Note PATIENT NAME: Philomena Barker DATE OF SERVICE: December 11, 2021 TIME: 8:26 AM PATIENT IDENTITY VERIFICATION COMPLETED USING TWO (2) IDENTIFIERS: Name and Date of confirmed by patient verbally. FALL SCREENING: Has the patient had 2 falls in the last year or 1 fall with injury or currently using an Ambulatory Assistive Device (Walker, Cane, Wheelchair, Crutches, etc.)? No PATIENT GENDER DATA: Male PATIENT RELEVANT IMPLANT DATA REVIEWED: Not Applicable RADIOLOGY DEPARTMENT: Ultrasound PERIPHERAL IV DATA: Not applicable SIGNED BY: Juani Mauro RDMS RVT December 11, 2021 8:26 AM documented in this encounter [facility] 12-04-2021 History of Presen t illness Narrative Chief Complaint Patient presents with: Wellness HPI Philomena Barker is a 56 year old male who presents here today for physical. Denies any bowel, Gi, or urinary issues. Notes he does get up once per night, but this is normal for him. Had colonoscopy in 09/2020. Cardiac - Denies any chest pains, dizziness, or SOB. Currently on no medication. Diet/Exercise - Tries to watch diet by doing intermittent fasting, eats more whole grains and avoids sugars. Exercises by doing a lot of cycling, running and playing golf. Rides with [employer] and [employer] cycling groups. Depression/BEATRIZ: No longer taking Effexor. Reports occasional episodes but overall doing well without the medication. Pt reports a lump on his right testicle that has been there for a very long time, 20 years. Denies much change, possibly bigger but denies any pain. No urinary symptoms. HM - Declines Hep C and HIV screening. Depression questions completed. Past medical history, appointments, medications, allergies reviewed. Previous Medical History PAST MEDICAL HISTORY Diagnosis Date Essential hypertension, benign Previous Surgical History PAST SURGICAL HISTORY Procedure Laterality Date COLONOSCOPY SCRN NOT HIGH RISK 09/27/2020 EXCISION BENIGN TUMOR/CYST lipoma at left shoulder TONSILLECTOMY HX Family History FAMILY HISTORY Adopted: Yes Patient Allergies ALLERGIES Allergen Reactions Seasonal Allergies Intolerance Current Medications Current Outpatient Medications on File Prior to Visit Medication Sig venlafaxine ER (EFFEXOR XR) 37.5 mg 24 hr capsule Take one pill daily for 2 weeks, then take one pill every other days for two weeks, then discontinue (Patient not taking: Reported on 09/11/2021 ) venlafaxine ER (EFFEXOR XR) 75 mg 24 hr capsule Take 1 capsule by mouth once daily. (Patient not taking: Reported on 09/11/2021 ) No current facility-administered medications on file prior to visit. Social History Social History Tobacco Use Smoking status: Never Smoker Smokeless tobacco: Never Used Substance Use Topics Alcohol use: Yes Comment: 1-2 times a month Drug use: Not Currently EXAM: BP 136/84 (BP Site: Left Arm, BP Position: Sitting, BP Cuff Size: Regular Adult) Pulse 60 Resp 12 Ht 176.5 cm (5' 9.5) Wt 84.8 kg (187 lb) BMI 27.22 kg/m General Appearance: Well appearing, alert, in no acute distress, well-hydrated, well nourished.. Lungs: Lungs clear to auscultation. No wheezing, rhonchi, rales.. Heart: RRR without murmur, gallop, or rubs. No ectopy. Abdomen: Normal abdominal exam, Abdomen soft, non-tender. Bowel sounds normal. No masses, organomegaly. Genitalia: Testicles normal, soft mass proximal right scrotum,. Non-tender Health Maintenance List HEPATITIS C SCREENING Never done HIV SCREENING Never done BP CONTROLLED (<130/80) Never done SHINGRIX VACCINE(1 of 2) Never done DEPRESSION SCREENING due on 09/10/2018 DTAP,TDAP,TD(2 - Td or Tdap) due on 01/28/2019 PROSTATE CANCER SCREENING DISCUSSION Never done INFLUENZA(1) due on 04/26/2021 COVID-19 VACCINE(3 - Booster for Moderna series) due on 06/07/2021 ANNUAL PCP TEAM CHRONIC DISEASE VISIT due on 10/14/2021 DIABETES SCREEN due on 03/01/2024 COLORECTAL CANCER SCREENING due on 09/27/2025 LIPID SCREEN due on 03/01/2026 MENINGOCOCCAL CONJUGATE Aged Out Data reviewed none ASSESSMENT/PLAN: 1. Wellness examination - ICD9: V70.0, ICD10: Z00.00 (primary diagnosis) - Counseled on healthy diet and regular exercise - Follow up for annual exam in one year 2. Mass of right testicle - ICD9: 608.89, ICD10: N50.89 Check US - US SCROTUM AND CONTENTS Lilia Montero MD documented in this encounter [facility] Evaluation note Diagnosis Wellness examination- Primary Mass of right testicle [facility] Diagnosis Mass of right testicle [facility] Diagnosis Hydrocele, encysted- Primary Encysted hydrocele [facility]* Diagnosis URI, acute- Primary Acute upper respiratory infections of unspecified site [facility] Diagnosis Hoarseness of voice- Primary Dysphonia [facility] Diagnosis Hoarseness of voice- Primary Dysphonia Laryngitis Acute laryngitis, without mention of obstruction [facility] Diagnosis Anxiety and depression- Primary Dysthymic disorder Essential hypertension, benign Screening for prostate cancer Special screening for malignant neoplasm of prostate [facility] Diagnosis Anxiety and depression- Primary Dysthymic disorder Essential hypertension, benign Elevated bilirubin Jaundice, unspecified, not of [facility]* Diagnosis Cyst of scrotum- Primary Sebaceous cyst [facility]* Diagnosis Essential hypertension, benign [facility]* Diagnosis Sialadenitis- Primary Sialoadenitis [facility] Diagnostic Procedure Only (Routine) - Authorized Specialty Diagnoses / Procedures Referred By Contac t Referred To Contact US IMAGING Diagnoses Mass of right testicle Procedures US SCROTUM AND CONTENTS US SCROTUM & CONTENTS Lilia Montero MD [address] [place] [address] Us Imaging Referral ID Status Reason Start Date Expiration Date Visits Requested Visits Authorized [id number] Authorized Auto-Generat ed Referral 12/04/2021 01/03/2023 1 1 [facility] for referral (narrative)* Diagnostic Procedure Only (Routine) - Closed Specialty Diagnoses / Procedures Referred By Charlie phillips Referred To Contact US IMAGING Diagnoses Mass of right testicle Procedures US SCROTUM AND CONTENTS US SCROTUM & CONTENTS Lilia Montero MD [address] [place] [address] Us Imaging Referral ID Status Reason Start Date Expiration Date V isits Requested Visits Authorized [id number] Closed Auto-Generate d Referral 12/04/2021 01/03/2023 1 1 [facility] for referral (narrative)* Diagnostic Procedure Only (Routine) - Authorized Specialty Diagnoses / Procedures Referred By Charlie phillips Referred To Contact US IMAGING Diagnoses Cyst of scrotum Procedures US DOPPLER COMPLETE DUP-SCAN ARTL TERESSA ABDL/PEL/SCROT&/RPR ORGN COM Paige Miller PA-C [address] [place] [id number] Us Imaging [id number] Referral ID Status Reason Start Date Expiration Date Visits Requested Visits Authorized [id number] Authorized Auto-Generat ed Referral 09/15/2024 10/15/2025 1 1 * Diagnostic Procedure Only (Routine) - Authorized Specialty Diagnoses / Procedures Referred By Charlie phillips Referred To Contact US IMAGING Diagnoses Cyst of scrotum Procedures US SCROTUM AND CONTENTS US SCROTUM & CONTENTS Paige Miller PA-C [address] [place] [address] [place] [id number] Referral ID Status Reason Start Date Expiration Date Visits Requested Visits Authorized [id number] Authorized Auto-Generat ed Referral 09/15/2024 10/15/2025 1 1 [facility] Summary Purpose Family History No Family History Records FoundNo Family History Records Found Advance Directives No Advanced Directives Records FoundDocuments on File Type Date Recorded 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 Advance Directive(s) 09/27/2020 9:42 AM Documents on File Type Date 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 Advance Directive(s) 09/27/2020 9:42 AM Reason for Referral Specialty Diagnoses / Procedures Referred By Contac t Referred To Contact Urology Diagnoses Hydrocele, encysted Procedures CONSULT TO UROLOGY OFFICE/OUTPATIENT [facility] 60-74 MINUTES Lilia Montero MD [address] [place] [address] Referral ID Status Reason Start Date Expiration Date Visits Requested Visits Authorized [id number] Authorized PCP Requested Referral 12/11/2021 12/11/2022 1 1 Specialty Diagnoses / Procedures Referred By Contac t Referred To Contact Ent - Otolaryngology Diagnoses Hoarseness of voice Procedures CONSULT TO ENT OFFICE/OUTPATIENT [facility] 60-74 MINUTES Kanchan Vásquez APRN.CNP [address] [place] [address] Referral ID Status Reason Start Date Expiration Date Visits Requested Visits Authorized [id number] Authorized PCP Requested Referral 03/28/2022 03/28/2023 1 1 Additional Source Comments (unrecognized sect ion and content) No Status Records FoundNo Status Records Found INFORMATION SOURCE (unrecogn ized section and content) DATE CREATED AUTHOR 06/07/[address] [facility] DATE CREATED AUTHOR AUTHOR'S ORGANIZ ATION 03/10/2025 [facility] Source Comments (unrecognize d section and content) In the event this informatio n is protected by the Federal Confidentiality of Alcohol and Drug Abuse Patient Records regulations: The Federal rules restrict any use of the information to criminally investigate or prosecute any alcohol or drug abuse patient.[facility] the event this information is protected by the Federal Confidentiality of Alcohol and Drug Abuse Patient Records regulations: The Federal rules restrict any use of the information to criminally investigate or prosecute any alcohol or drug abuse patient.[facility] the event this information is protected by the Federal Confidentiality of Alcohol and Drug Abuse Patient Records regulations: The Federal rules restrict any use of the information to criminally investigate or prosecute any alcohol or drug abuse patient.[facility] CenterIn the event this information is protected by the Federal Confidentiality of Alcohol and Drug Abuse Patient Records regulations: The Federal rules restrict any use of the information to criminally investigate or prosecute any alcohol or drug abuse patient.[facility] CenterIn the event this information is protected by the Federal Confidentiality of Alcohol and Drug Abuse Patient Records regulations: The Federal rules restrict any use of the information to criminally investigate or prosecute any alcohol or drug abuse patient.[facility] CenterIn the event this information is protected by the Federal Confidentiality of Alcohol and Drug Abuse Patient Records regulations: The Federal rules restrict any use of the information to criminally investigate or prosecute any alcohol or drug abuse patient.[facility] CenterIn the event this information is protected by the Federal Confidentiality of Alcohol and Drug Abuse Patient Records regulations: The Federal rules restrict any use of the information to criminally investigate or prosecute any alcohol or drug abuse patient.[facility] CenterIn the event this information is protected by the Federal Confidentiality of Alcohol and Drug Abuse Patient Records regulations: The Federal rules restrict any use of the information to criminally investigate or prosecute any alcohol or drug abuse patient.[facility] CenterIn the event this information is protected by the Federal Confidentiality of Alcohol and Drug Abuse Patient Records regulations: The Federal rules restrict any use of the information to criminally investigate or prosecute any alcohol or drug abuse patient.[facility] CenterIn the event this information is protected by the Federal Confidentiality of Alcohol and Drug Abuse Patient Records regulations: The Federal rules restrict any use of the information to criminally investigate or prosecute any alcohol or drug abuse patient.[facility] CenterIn the event this information is protected by the Federal Confidentiality of Alcohol and Drug Abuse Patient Records regulations: The Federal rules restrict any use of the information to criminally investigate or prosecute any alcohol or drug abuse patient.[facility] CenterIn the event this information is protected by the Federal Confidentiality of Alcohol and Drug Abuse Patient Records regulations: The Federal rules restrict any use of the information to criminally investigate or prosecute any alcohol or drug abuse patient.[facility] CenterIn the event this information is protected by the Federal Confidentiality of Alcohol and Drug Abuse Patient Records regulations: The Federal rules restrict any use of the information to criminally investigate or prosecute any alcohol or drug abuse patient.[facility] CenterIn the event this information is protected by the Federal Confidentiality of Alcohol and Drug Abuse Patient Records regulations: The Federal rules restrict any use of the information to criminally investigate or prosecute any alcohol or drug abuse patient.[facility] CenterIn the event this information is protected by the Federal Confidentiality of Alcohol and Drug Abuse Patient Records regulations: The Federal rules restrict any use of the information to criminally investigate or prosecute any alcohol or drug abuse patient.[facility] CenterIn the event this information is protected by the Federal Confidentiality of Alcohol and Drug Abuse Patient Records regulations: The Federal rules restrict any use of the information to criminally investigate or prosecute any alcohol or drug abuse patient.[facility] Reason for Visit (unrecogniz ed section and content) Reason Comments Wellness Reason Comments Radiology US Specialty Diagnoses / Procedures Referred By Contac t Referred To Contact US IMAGING Diagnoses Mass of right testicle Procedures US SCROTUM AND CONTENTS US SCROTUM & CONTENTS Lilia Montero MD [address] [place] [address] Us Imaging Referral ID Status Reason Start Date Expiration Date V isits Requested Visits Authorized [id number] Closed Auto-Generate d Referral 12/04/2021 01/03/2023 1 1 Reason Comments Results Reason Comments Sore Throat cough, congestion x 11 days Reason Comments Cough Pt taking ATB, predn isone,reported, reported loss of voice x2 days denied SOB, chest pain Reason Comments Acute Visit laryngitis and cough Reason Comments Medication Follow-up Reason Comments 4 week f/u Reason Comments Appointment Reason Comments Consult Testicular growth Reason Comments Pain left side neck and j aw pain and swelling x 2.5 days Care Teams (unrecognized sec tion and content) Dental Ceramist Assistant Relationship Specialty Start Date End Date Lilia Montero MD [address] [place], [place] [id number] PCP - General Family Practice 01/30/11 Dental Ceramist Assistant Relationship Specialty Start Date End Date Lilia Montero MD [address] [place], [place] [id number] PCP - General Family Practice 01/30/11 Dental Ceramist Assistant Relationship Specialty Start Date End Date Lilia Montero MD [address] [place] [address] PCP - General Family Practice 01/30/11 Dental Ceramist Assistant Relationship Specialty Start Date End Date Lilia Montero MD [address] [place] [address] PCP - General Family Practice 01/30/11 Dental Ceramist Assistant Relationship Specialty Start Date End Date Lilia Montero MD [address] [place] [address] PCP - General Family Practice 01/30/11 Dental Ceramist Assistant Relationship Specialty Start Date End Date Lilia Montero MD [address] [place] [address] PCP - General Family Practice 01/30/11 Dental Ceramist Assistant Relationship Specialty Start Date End Date Lilia Montero MD [address] [place] [address] PCP - General Family Practice 01/30/11 Dental Ceramist Assistant Relationship Specialty Start Date End Date Lilia Montero MD [address] [place] [address] PCP - General Family Medicine 01/30/11 Dental Ceramist Assistant Relationship Specialty Start Date End Date Lilia Montero MD [address] [place] [address] PCP - General Family Medicine 01/30/11 Dental Ceramist Assistant Relationship Specialty Start Date End Date Lilia Montero MD [address] [place] [address] PCP - General Family Medicine 01/30/11 Dental Ceramist Assistant Relationship Specialty Start Date End Date Lilia Montero MD [address] [place] [address] PCP - General Family Medicine 01/30/11 Dental Ceramist Assistant Relationship Specialty Start Date End Date Lilia Montero MD [address] [place] [address] PCP - General Family Medicine 01/30/11 Dental Ceramist Assistant Relationship Specialty Start Date End Date Lilia Montero MD [address] [place] [address] PCP - General Family Medicine 01/30/11 Kanchan Vásquez APRN.TECHNOLOGY ARCHITECT [address] [place] [address] [facility] 08/02/24 Tio Marquez APRN.TECHNOLOGY ARCHITECT [address] [place] [address] [facility] 08/11/24 Dental Ceramist Assistant Relationship Specialty Start Date End Date Lilia Montero MD [address] [place] [address] PCP - General Family Medicine 01/30/11 Kanchan Vásquez APRN.TECHNOLOGY ARCHITECT [address] [place] [address] [facility] 08/02/24 Tio Marquez APRN.TECHNOLOGY ARCHITECT [address] [place] [address] [facility] Dental Ceramist Assistant Relationship Specialty Start Date End Date Lilia Montero MD [address] [place] [address] PCP - General Family Medicine 01/30/11 Kanchan Vásquez APRN.TECHNOLOGY ARCHITECT [address] [place] [address] [facility] 08/02/24 Tio Marquez APRN.TECHNOLOGY ARCHITECT [address] [place] [address] [facility] 08/11/24 Dental Ceramist Assistant Relationship Specialty Start Date End Date Lilia Montero MD [address] [place] [address] PCP - General Family Medicine 01/30/11 Tio Marquez APRN.[facility] [address] [place] [address] [employer] 08/11/24 FOR RECORDS PERTAINING TO PATIENTS WHO ARE OR HAVE BEEN ENROLLED IN A CHEMICAL DEPENDENCY/SUBSTANCEABUSE PROGRAM, SOME INFORMATION MAY BE OMITTED. This clinical summary was aggregated from multiple sources. Caution should be exercised in using it in the provision of clinical care. This summary normalizes information from multiple sources, and as a consequence, information in this document may materially change the coding, format and clinical context of patient data. In addition, data may be omitted in some cases. CLINICAL DECISIONS SHOULD BE BASED ON THE PRIMARY CLINICAL RECORDS. [employer] provides no warranty or guarantee of the accuracy or completeness of information in this document.
[2025-04-25 19:28] LABS: Prothrombin Time (Protime)PT. 13.4 SECONDS (11.7-14.9)
[2025-04-25 19:29] LABS: Partial Thromboplast Time 21.1 Seconds (24.1-36.2)
[2025-04-25 19:35] VITALS: BP 172/85; PULSE 81; RESP 20; O2SAT 99
[2025-04-25 19:38] LABS: Anion Gap 13 (5-15); BUN 16 mg/dL (4-19); BUN/Creat Ratio 17.4 RATIO (10-20); Calcium,Total 9.2 mg/dL (7.6-11.0); Carbon Dioxide 21.3 mmol/L (21.0-32.0); Chloride 102 mmol/L (98-108); Estimated Creatinine Clearance 88.16 ml/min (50-250); Glucose 160 mg/dL (70-99); Potassium 4.5 mmol/L (3.3-5.1); Troponin T High Sensitivity < 6 ng/L (<=22)
--- NOTE | 2025-04-25 19:43 | ED.VIS.STROK ---
HPI History of Present Illness Chief Complaint: Dizziness Detail of Chief Complaint: Dizziness 3 days ago, resolved and onset 0800 this morning Informant: patient Onset/Context/Timing Onset: Today and Days Context: Sudden Onset Timing: Continuous (Since this morning) and Intermittent (3 days ago) Quality and Location: Positive for Difficulty with Ambulation Onset: 799April 25 Current Severity: Mild Maximum Severity: Severe Worsened by: Nothing specific Relieved by: Nothing Associated Symptoms Associated Symptoms: Positive for Nausea and Vomiting; Negative for Headache or Chest Pain Narrative Narrative: Patient is a 60-year-old male. He has history hypertension. He was weaned off of his blood pressure medicine. Patient denies headache. He denies double vision blurred vision loss of vision. He feels things are moving and his balance is off. He had an episode 3 days ago that resolved. The episode that started today first noted at 8 AM. Prior similar symptoms: No Recent Illness/Hospitalization: No PFSH PFS Medical History HTN (hypertension) Home Medications ?Medication ?Instructions ?Recorded ?Last Taken ?Type multivitamin with minerals 1 ea PO DAILY 06/04/20 Unknown History Allergy/AdvReac Type Severity Reaction Status Date / Time No Known Allergies Allergy Verified 04/25/25 18:39 Family History adopted Surgical History no surgical history Social History (Updated 04/25/25 @ 20:[address] Bishnu Bacon MD) household members: spouse Smoking Status: Never smoker details: SOCIAL substance use type: does not use ROS ROS ED Constitutional Constitutional ED: Denies chills, fever(s) or subjective Eyes Eyes: Denies blurry vision, change in vision or diplopia ENT ENT ED: Denies ear pain, rhinorrhea or sore throat Cardiovascular Cardiovascular: Denies chest pain or palpitations Respiratory/Chest Respiratory/Chest: Denies cough, dyspnea or dyspnea on exertion Gastrointestinal Gastrointestinal: Denies nausea or vomiting Genitourinary Genitourinary ED: Denies dysuria, hematuria or urinary frequency Musculoskeletal Musculoskeletal: Denies arthralgias or myalgias Integumentary Denies rash Neurologic Neurologic: Denies headache(s), paresthesias or weakness Psychiatric Psychiatric: Denies anxiety or depression Hematologic/Lymphatic Hematologic/Lymphatic: Denies easy bleeding or easy bruising EXAM Physical Exam Const Vital Signs: 04/25/25 18:39 04/25/25 19:05 04/25/25 19:35 Temperature 98.2 F Temperature Source Oral Pulse Rate 90 81 Respiratory Rate 16 20 H Blood Pressure 134/80 H 172/85 H Blood Pressure Mean 98 114 Pulse Ox 98 99 Oxygen Delivery Method Room Air Room Air Room Air 04/25/25 19:59 04/25/25 20:02 Temperature 98.1 F Temperature Source Pulse Rate 73 81 Respiratory Rate 18 18 Blood Pressure 148/98 H 152/85 H Blood Pressure Mean 114 107 Pulse Ox 99 99 Oxygen Delivery Method Room Air Positive well nourished and well developed Constitutional Narrative: Blood pressure is slightly elevated. Patient has history of hypertension. After discussion with He discontinued his blood pressure meds because of change in diet, exercise and weight. Most recent blood pressure was 1 month ago and it was 125/84. General Appearance ED: well developed HEENT Reports TM's clear and moist mucous membranes atraumatic Nose: other Other Details: Normal Tympanic Membrane ED: Yes TM's clear bilateral Eyes PERRL and EOMs intact bilaterally Eyes Narrative: Central gaze nystagmus. General Eye ED: Negative for pale conjunctiva or scleral icterus Neck no lymphadenopathy, supple and no JVD Neck Narrative: No carotid bruits noted. Resp normal respiratory effort and clear to auscultation bilaterally Cardio no murmurs Rate: regular rate Rhythm: regular rhythm Heart Sounds: S1 normal GI normal to inspection, nondistended, normoactive bowel sounds, soft to palpation, non-tender, non-distended and no masses Back/Spine Cervical Spine: Negative for cervical spine tenderness Extremity normal to inspection General Extremety ED: Negative for deformity, edema or tenderness General Extremity: Negative for deformity or edema Neuro oriented x3, CN's II-XII intact bilaterally and no sensory deficits noted Neuro Narrative: Patient has some mild dysmetria on the right. Romberg test was positive bilaterally worse on the right. Patient has ataxic gait. Zachery Coma Scale: document GCS findings Spontaneous Obeys Commands Oriented 15 Sensorium / Orientation: alert Speech: speech normal Gait (Neuro): Negative for normal gait Motor Exam: strength 5/5 throughout Psych mental status grossly normal Skin no wounds General Skin Exam: Negative for jaundice Lesions: no lesions Rashes: no rashes MDM MDM MDM Narrative Medical decision making narrative: Differential diagnosis is central versus peripheral vertigo. Suspect this is central. After discussion with the stroke neurologist patient to be admitted for MRI and stroke workup. He recommended aspirin and loading with Plavix. Lab Data Attestation: I reviewed the patient's lab results. Lab results narrative: CBC is unremarkable. Basic metabolic panel is unremarkable. Coags are unremarkable. First troponin is normal. Glucose was elevated 160 with a normal CO2 anion gap. Labs: Laboratory Results - last 24 hr 04/25/25 19:13 WBC 8.9 RBC 5.07 Hgb 16.2 Hct 43.6 MCV 86.0 MCH 32.0 MCHC 37.2 H RDW Std Deviation 35.1 RDW Coeff of Amanda 11.3 L Plt Count 198 MPV 9.3 Immature Gran % (Auto) 0.300 Neut % (Auto) 89.4 H Lymph % (Auto) 8.2 L Dubois % (Auto) 1.9 Eos % (Auto) 0.0 Baso % (Auto) 0.2 Absolute Neuts (auto) 7.9 H Absolute Lymphs (auto) 0.73 L Nucleated RBC % 0 PT 13.4 INR 1.0 APTT 21.1 L Sodium 136 Potassium 4.5 Chloride 102 Carbon Dioxide 21.3 Anion Gap 13 BUN 16 Creatinine 0.92 Estim Creat Clear Calc 88.16 Est GFR (MDRD) Non-Af 95 BUN/Creatinine Ratio 17.4 Glucose 160 H Calcium 9.2 Troponin T High Sens < 6 Radiography Diagnostic Testing: Clinical Impression(s) from Imaging Studies Brain CT 04/25/25 19:05 IMPRESSION: No acute intracranial abnormality. The findings and impression of this report were called directly to the ordering physician, Dr. Bacon at 7:39 p.m, eastern standard time. Reading Location: [facility] Head/Neck CTA 04/25/25 19:06 IMPRESSION: 1. No large vessel occlusion. 2. Minimal atherosclerosis of the carotid bulb and proximal internal carotid arteries with less than 15% stenosis. 3. No aneurysm. Reading Location: [facility] EKG Initial EKG: Attestation: I personally reviewed and interpreted this EKG as follows: Interpretation: Sinus Rhythm (Normal sinus rhythm rate of 74. The EKG is normal. IN interval is 130 ms per cures duration 84 ms. QT duration 400 ms [place] is normal) Management Discussion w/another healthcare provider: Hospitalist, Volunteer Services Supervisor (Spoke with stroke neurologist at [facility] Dr. Davis. He recommended aspirin and loading dose of Plavix and stroke workup. One of his associates/partners will see patient in consultation tomorrow) and Radiologist (Received call from radiologist regarding CT of the head without contrast. No acute findings. 5 minutes prior to receiving the call from radiologist the films were reviewed with the stroke neurologist at [facility]. Both the CT and CTA of the head and neck were unremarkable according to him.) Discharge Plan Dx/Rx/DC Orders Clinical Impression: Vertigo, Ataxia, Horizontal nystagmus, Hypertension Disposition Disposition: [facility] NIHSS NIHSS 1a. Level of Consciousness: 0 - Alert; keenly responsive 1b. LOC Questions: 0 - Answers BOTH questions correctly 1c. LOC Commands: 0 - Performs BOTH tasks correctly 2. Best Gaze: 0 - Normal 3. Visual: 0 - No visual loss 4. Facial Palsy: 0 - Normal symmetrical movements 5a. Left Arm: 0 - No drift; arm holds 90 (or 45) degrees for full 10 seconds 5b. Right Arm: 0 - No drift; arm holds 90 (or 45) degrees for full 10 seconds 6a. Left Le - No drift; leg holds 30-degree position for full 5 seconds 6b. Right Le - No drift; leg holds 30-degree position for full 5 seconds 7. Limb Ataxia: 1 - Present in 1 limb 8. Sensory: 0 - Normal; no sensory loss 9. Best Language: 0 - No aphasia; normal 10. Dysarthria: 0 - Normal 11. Extinction and Inattention: 0 - No abnormality Total: 1 Stroke Questions Stroke Team Activated: Yes Reviewed Inclusion/Exclusion criteria: No (Patient outside of the window.) IV Thrombolytic Administered: No
--- NOTE | 2025-04-25 19:45 | PCM.HP.STD ---
HPI - General General Date of Admission: 04/25/25 Date of Service: 04/25/25 Chief Complaint: Dizziness. HPI Narrative PHILOMENA BARKER, is a 60 M with a past medical history of essential hypertension; with patient reporting having been weaned off his blood pressure medicine and history of generalized anxiety who presents to [facility] ER complaining of dizziness. Mr. Barker reports his symptoms began approximately 3 days ago with abrupt-onset of severe vertigo that subsequently resolved so he did not seek medical attention at that time. Unfortunately, around 8 AM this morning his dizziness returned causing him to feel things are moving around him with poor balance so he decided to come in for further evaluation and treatment when his symptoms did not spontaneously resolve. He additionally reported that his is knowledgeable about vertigo and they attempted an Huy maneuver at home but it was not helpful in relieving his symptoms. He denies associated fever, chills, changes in vision, headache, focal neurologic weakness, ear pain, runny nose, sore throat, shortness of breath, cough, chest pain, palpitations, heart racing, lower extremity edema, nausea, vomiting, diarrhea, constipation, abdominal pain, dysuria, hematuria, recent illness or rash. In the ER he underwent initial head CT without contrast that revealed no acute intracranial abnormality followed by CTA of the head and neck with IV contrast that revealed no LVO with minimal atherosclerosis of the carotid bulb and proximal internal carotid arteries with less than 50% stenosis and no aneurysm. He was then diagnosed with central versus peripheral Vertigo with the patient noted to have dysmetria on the right with positive Romberg test bilaterally that was worse on the right in addition to ataxic gait with suspicion for TIA versus CVA complicated by laboratory evidence of Hyperglycemia of 160 mg/dL with otherwise unremarkable laboratory studies and vital signs. He was empirically treated with ECASA plus he was loaded with clopidogrel and he was then admitted to the PCU under observation status for ongoing care for status is expected to be less than 2 midnights. [facility] Medical History HTN (hypertension) Home Medications ?Medication ?Instructions ?Recorded ?Last Taken ?Type multivitamin with minerals 1 ea PO DAILY supp 06/04/20 04/22/25 History glucosamine 750 oh-blbsay-egc 1 1 tab PO supp 04/25/25 04/22/25 History 625 mg-D3 1,000 wyvk-P-naa-Bosw tablet (Fintfzsqlbf-Vxqymqmlbnm-PCH with vit D) omeg3-epa 150 mg-dha 100 mg-fish 1 cap PO DAILY supp 04/25/25 04/22/25 History oil-flaxseed oil 333 mg-E 61 unit cap Allergy/AdvReac Type Severity Reaction Status Date / Time No Known Allergies Allergy Verified 04/25/25 18:39 Family History adopted Surgical History no surgical history Social History (Updated 04/25/25 @ 20:[address] Bishnu Bacon MD) household members: spouse Smoking Status: Never smoker details: SOCIAL substance use type: does not use ROS ROS Narrative Review of Systems: Constitutional: Patient denies fever or chills. Eyes: Patient denies change in vision or discharge from eyes. ENT: Patient denies runny nose, sore throat or ear pain. Resp: Patient denies shortness of breath or cough. CV: Patient denies chest pain, palpitations, heart racing or lower extremity edema. GI: Patient denies abdominal pain, nausea, vomiting, diarrhea or constipation. : Patient denies dysuria, hematuria or urinary frequency. MSK: Patient denies arthralgias or myalgias. Skin: Patient denies rash, abscess, wounds or jaundice. Psych: Patient denies symptoms uncontrolled depression or anxiety. Neuro: Patient admits to vertigo with ataxic gait as per HPI. He denies headache, paresthesias or other focal neurologic deficits. Allergy: Patient denies lip swelling, tongue swelling or urticaria. Hematology: Patient denies easy bleeding or easy bruisability. Endocrinology: Patient denies polyuria, polydipsia, polyphagia or heat/cold intolerance. 14 point ROS otherwise negative except for positives noted above in HPI. Vital Signs Vital Signs Vital Signs: 04/25/25 18:39 04/25/25 19:05 04/25/25 19:35 Temperature 98.2 F Temperature Source Oral Pulse Rate 90 81 Respiratory Rate 16 20 H Blood Pressure 134/80 H 172/85 H Blood Pressure Mean 98 114 Pulse Ox 98 99 Oxygen Delivery Method Room Air Room Air Room Air Weight Weight: 171 lb 4.787 oz Body Mass Index (BMI) 24.5 Physical Exam Const alert, oriented x3, no apparent distress, average body habitus and healthy appearing General Appearance: cooperative HEENT normocephalic, head/scalp atraumatic, hearing grossly normal bilaterally and moist oral mucous membranes Eyes PERRL, EOMs intact bilaterally and conjunctivae normal Eyes Narrative: Central gaze nystagmus noted. Neck no lymphadenopathy, supple and no JVD Resp normal respiratory effort, no retractions, no use of accessory muscles and clear to auscultation bilaterally Cardio regular rate and regular rhythm GI normal to inspection, nondistended, normoactive bowel sounds, soft to palpation, non-tender and non-distended Extremity normal to inspection, full ROM and no clubbing, cyanosis or edema Skin Skin Narrative: Patient has evidence of rash, abscess, wounds or jaundice. Neuro oriented x3, CN's II-XII intact bilaterally, moves all extremities and no focal motor deficits Neuro Narrative: Patient has ataxic gait with mild dysmetria on the right with positive Romberg test, Right greater than Left. Sensorium / Orientation: awake, alert, oriented to person, oriented to place and oriented to time Speech: speech normal Psych affect normal Results Medical Records Data Attestation: I reviewed the patient's medical records Lab / Micro Data Attestation: I reviewed the patient's lab results. 04/25/25 19:13 04/25/25 19:13 Labs: Laboratory Results - last 24 hr 04/25/25 19:13: WBC 8.9, RBC 5.07, Hgb 16.2, Hct 43.6, MCV 86.0, MCH 32.0, MCHC 37.2 H, RDW Std Deviation 35.1, RDW Coeff of Amanda 11.3 L, Plt Count 198, MPV 9.3, Immature Gran % (Auto) 0.300, Neut % (Auto) 89.4 H, Lymph % (Auto) 8.2 L, [place] % (Auto) 1.9, Eos % (Auto) 0.0, Baso % (Auto) 0.2, Absolute Neuts (auto) 7.9 H, Absolute Lymphs (auto) 0.73 L, Nucleated RBC % 0, PT 13.4, INR 1.0, APTT 21.1 L, Sodium 136, Potassium 4.5, Chloride 102, Carbon Dioxide 21.3, Anion Gap 13, BUN 16, Creatinine 0.92, Estim Creat Clear Calc 88.16, Est GFR (MDRD) Non-Af 95, BUN/Creatinine Ratio 17.4, Glucose 160 H, Calcium 9.2, Troponin T High Sens < 6 Imaging Radiology Impression Brain CT 04/25/25 19:05 IMPRESSION: No acute intracranial abnormality. The findings and impression of this report were called directly to the ordering physician, Dr. Bacon at 7:39 p.m, eastern standard time. Reading Location: [id number] Imaging Services [address] [place] [address] [id number] STROKE CTA Head AND Neck W/Con MR#: [id number] Acct: [id number] Name: PHILOMENA BARKER Rep #: [id number] : 1965 M 60 From: Raymond Zavala MD PCP: Dr. Scar Wilkins MD Status: [facility] ER Study: STROKE CTA Head AND Neck W/Con Date of Exam: 04/25/25 Exam# [id number] Ordering Dr: Bishnu Bacon MD PROCEDURE: STROKE CTA HEAD AND NECK W/CON 04/25/2025 REASON FOR EXAM: NEURO DEFICIT, ACUTE, STROKE SUSPECTED TECHNIQUE: Procedure Code: CTCTA.ST.HN Modality: CT Procedure: STROKE CTA HEAD AND NECK W/CON Multiplanar Sagittal and Coronal images were obtained. 3D post processing was performed CONTRAST: Isovue 370 VOLUME: 100 mL One or more dose reduction techniques were used (e.g., Automated exposure control, adjustment of the mA and/or kV according to patient size, use of iterative reconstruction technique). RADIATION DOSE SUMMARY: CTDlvol: 74 mGy DLP: 1579 mGycm COMPARISON: Head CT of the same day FINDINGS: Aortic Arch: No aneurysm. Left vertebral artery originates directly from the arch. Brachiocephalic and Subclavians: Unremarkable RIGHT Carotid: Right CCA: Minimal mural plaque at the carotid bulb. Right ICA: Minimal mural plaque proximally. Maximum stenosis (NASCET): Less than 15% % Right ECA: Unremarkable LEFT Carotid: Left CCA: Minimal mural plaque at the carotid bulb. Left ICA: Minimal mural plaque proximally. Maximum stenosis (NASCET): Less than 15 % Left ECA: Unremarkable Vertebrals: Right is dominant. Both are patent. RIGHT Vertebral: Unremarkable. LEFT Vertebral: Unremarkable. Anatomy: origin surveillance operator bilaterally. Aneurysm or avm: No intracranial aneurysms or large vascular malformations are identified. Anterior cerebral arteries: Unremarkable. Middle cerebral arteries: Unremarkable. Basilar artery: Unremarkable. Posterior cerebral arteries: origin bilaterally. Hypoplastic P1 segments bilaterally. Other major branches of the posterior circulation: Unremarkable. Major venous structures: Unremarkable. Other findings: Neck: No lymphadenopathy. Lungs: Lung apices are clear. Bones: Bones are unremarkable. CT/STROKE CTA Head AND Neck W/Con IMPRESSION: 1. No large vessel occlusion. 2. Minimal atherosclerosis of the carotid bulb and proximal internal carotid arteries with less than 15% stenosis. 3. No aneurysm. Reading Location: [facility] CC: Dr. Scar Wilkins MD; Dr. Bishnu Bacon MD ~ Supervisor White [employer]: Signed Assessment & Plan Assessment/Plan (1) Vertigo: (2) Ataxia: (3) Horizontal nystagmus: (4) Hypertension: QUALIFIERS: Hypertension type: unspecified Qualified Code(s): I10 - Essential (primary) hypertension PLAN: Plan 1. Vertigo; central vs peripheral with possible TIA/CVA - Admit to PCU under observation status. Continue ASA and clopidogrel begun in the ER as recommended by teleneurology. Scopolamine patch was placed for refractory vertigo with patient noting improvement with only mild residual symptoms compared to previous. Check MRI of the brain without contrast to evaluate for possible stroke. Check echocardiogram to evaluate LVEF. Check carotid Doppler to evaluate for stenosis. Check TSH, B12, folate, hemoglobin A1c, lipid profile, UDS and CATIE. Finally, [facility] teleneurology consult is greatly appreciated. 2. Essential hypertension; with patient reporting having been weaned off his blood pressure medicine - Stable. Allow for permissive hypertension until CVA definitively ruled out on MRI. 3. History of generalized anxiety - Stable. Give low-dose benzodiazepine as needed for breakthrough symptoms. 4. DVT prophylaxis - Enoxaparin 40 mg sq daily. Total time: Approximately (but not less than) 45 minutes. Charges/Coding Visit Charges OBSV E&M: 77600 Observ/hosp same date L1
--- NOTE | 2025-04-25 19:54 | CASEMGMT ---
Care Management Face to Face with patient for initial transition planning/care coordination assessment in the ED.? This writer editor introduced self and role at [facility]. Patient alert and oriented. Patient willing to participate in assessment and is able to answer all questions appropriately.? Care providers, pharmacy, and demographics verified. Patient?s was also present which patient was agreeable to. Admitting Diagnosis: Vertigo Other diagnosis history: Including but not limited to: Hypertension PCP: Dr. Wilkins Specialists: Denied Preferred Pharmacy: [facility] Pharmacy Insurance: Yes; [employer] Prescription Benefit: Yes Living Will/HPOA: Yes. Not on file. Resistance Welder requested patient to bring a copy in which patient and were both agreeable to. LNOK: Patient?s , Mariann. Patient and his also have a daughter, Desiree, who is in college but comes home frequently. Living Arrangements: Patient and his reside in a 3-story home. Patient denied any environmental barriers/needs related to housing at this time. 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 DME: Denied and denied a current need. HHC: Denied SNF/Rehab: Denied Community Resources: Denied and denied a current need. Behavioral Health History: Anxiety; managed at this time. Patient goals: Patient wishes to discharge home, and denies need for home health care at this time. Patient denies any further needs or concerns at this time. Disposition Plan: Admission to acute; RN CM/SW to follow for discharge planning needs that may arise. Destiney Spicer, MEDICAL LABORATORY TECHNICAL OFFICER, [employer]
[2025-04-25 19:59] VITALS: BP 148/98; PULSE 73; RESP 18; TEMP 36.7; O2SAT 99
--- NOTE | 2025-04-25 20:01 | ED.RN ---
per asim coppola to change [facility]UST to [facility].
[2025-04-25 20:02] VITALS: BP 152/85; PULSE 81; RESP 18; O2SAT 99
--- OUTSIDE RECORDS SUMMARY | 2025-04-25 20:21 | XMS RPT_ITS | CCD ---
Author Organization [facility] Care Team Providers Care Overweaver Name Role Phone Lilia Montero MD Primary Care Provider Lilia Montero MD Primary Care Provider Tannhof HOSPICE ADMINISTRATOR.Kanchan HARISTON Unavailable Jimmy HOSPICE ADMINISTRATOR.Tio HAIRSTON Unavailable PAIGE MILLER Attending Unavailable LILIA MONTERO Primary Care Unavailable LILIA MONTERO Primary Care Unavailable LYN CABAN Attending Unavailable Allergies Allergy Classification Reported Allergen(s) Allergy Type Date of Onset Reaction(s) Facility (17 sources) Seasonal allergy; Translations: [SEASONAL ALLERGIES] Propensity to adverse reactions 01-30-2011 Intolerance [facility] Work Phone: Medications Current Medications Medication Drug [...] with food. Take 2 tablets by mo [facility] once daily for 5 days. [...] 03-07-2025 CNOV Office Visit (WOUCA) PHILOMENA BARKER ([id number]) 1965 M Date Time Provider Department 03/07/25 [...] oral intake. - Prescription sent to [facility] Recording using [employer] software for draft documentation of the visit was discussed with the patient/authorized provider service representative; all questions welcomed and answered. Patient/authorized provider service representative agreed to proceed Differential Diagnoses - [...] Encounter Status:Closed by LYN CABAN on 03/07/25 [facility] CNOVon 09-15-2024 CNOV Office Visit (UROLWS ) PHILOMENA BARKER ([id number]) 1965 M Date Time Provider Department 09/15/24 11:00 AM PAIGE MILLER During your visit today, we recorded the following information about you: Temperature Pulse Respiration Blood pressure 97 degrees 72/minute 14/minute 158/98 Weight Height 83 kg 1.753 m Paige Miller PA-C 09/15/2024 8:48 PM Signed [facility] NEW PATIENT CLINIC NOTE [...] Friends and Family: Twice a week Attends [employer] Services: Never Active Member of Clubs or [...] Result Value (more content not included)... Normal [facility] [place] 09-10-2024 CNPN Telephone (UROLWS) MJPHILOMENA Whaley ([id number]) 1965 M Date Time Provider Department 09/10/24 [...] Status:Closed by ZACH ROSARIO on 09/15/24 Normal [facility] No Panel Informationon 12-11 [facility] Emergency Department Summary on 06-04-2020 Emergency Department Summary [facility] Medical Records Department [address] [place] [address] [place] [address] Emergency Department Summary 06/04/20 MR#: [id number] Acct: [id number] Name: PHILOMENA BARKER Rep #: [id number] : 1965 55 From: Sammy Baptiste MD [...] Impression: Anxiety This note was generated with [employer] software. It may contain incorrect words, spelling, and punctuation that were not noted in review of the chart prior to signing ED Disposition - Plan for ED Patient: Disposition: Home or Assisted Living Instructions: ED Panic Attack Prescriptions: hydrOXYzine pamoate capsule [Vistaril] 25 mg PO TID PRN PRN #20 cap PRN Reason: Anxiety Transmission Status: Pending to [facility] Referrals: Lilia Montero MD [Primary Care Provider] - What to do if you have Problems For any increased pain, shortness of breath, bleeding, nausea or vomiting, chest pain, or any unexpected problems, contact your Primary Care Provider. Call [facility] ([phone]) or report to the closest Emergency Room. Call 911 if necessary. 06/04/20511 Date Sammy Baptiste MD Cosigner Signature (If Indicated): Date _ CC: Dr. Lilia Montero MD [facility] Vital Signs Date Time Vital Sign Value Performing Clinician Facility 03-07-2025 12:33-0400 Body mass index (BMI) [Ratio] 25.91 kg/m2 Krislyn Aberegg PA Work Phone: [facility] 03-07-2025 12:33-0400 Body temperature 96.91 [degF] Krislyn Aberegg PA Work Phone: [facility] 03-07-2025 12:33-0400 Body weight 79.6 kg Krislyn Aberegg PA Work Phone: [facility] 03-07-2025 12:33-0400 Diastolic blood pressure 74 mm[Hg] Krislyn Aberegg PA Work Phone: [facility] 03-07-2025 12:33-0400 Heart rate 76 /min Krislyn Aberegg PA Work Phone: [facility] 03-07-2025 12:33-0400 Respiratory rate 16 /min Krislyn Aberegg PA Work Phone: [facility] 03-07-2025 12:33-0400 SaO2% (BldA) [Mass fraction] 97 % Krislyn Aberegg PA Work Phone: [facility] 03-07-2025 12:33-0400 Systolic blood pressure 126 mm[Hg] Krislyn Aberegg PA Work Phone: [facility] 09-15-2024 10:49-0500 Body height 175.3 cm Paige Miller PA-C Work Phone: [facility] 09-15-2024 10:49-0500 Body mass index (BMI) [Ratio] 27.02 kg/m2 Paige Miller PA-C Work Phone: [facility] 09-15-2024 10:49-0500 Body temperature 97 [degF] Paige Miller PA-C Work Phone: [facility] 09-15-2024 10:49-0500 Body weight 83.01 kg Paige Miller PA-C Work Phone: [facility] 09-15-2024 10:49-0500 Diastolic blood pressure 98 mm[Hg] Paige Miller PA-C Work Phone: [facility] Comment on above: Advised patient to update PCP on blood p ressure- states he has been on and off of blood pressure medications. Paige notified of blood pressure. 09-15-2024 10:49-0500 Heart rate 72 /min Paige Miller PA-C Work Phone: [facility] 09-15-2024 10:49-0500 Respiratory rate 14 /min Paige Miller PA-C Work Phone: [facility] 09-15-2024 10:49-0500 SaO2% (BldA) [Mass fraction] 99 % Paige Miller PA-C Work Phone: [facility] 09-15-2024 10:49-0500 Systolic blood pressure 158 mm[Hg] Paige Miller PA-C Work Phone: [facility] Comment on above: Advised patient to update PCP on blood p ressure- states he has been on and off of blood pressure medications. Paige notified of blood pressure. 06-14-2023 08:03-0400 Body weight 89 kg Tio Jimmy HOSPICE ADMINISTRATOR.WOOD TYPE CUTTER Work Phone: [facility] 06-14-2023 08:03-0400 Diastolic blood pressure 93 mm[Hg] Tio Jimmy HOSPICE ADMINISTRATOR.WOOD TYPE CUTTER Work Phone: [facility] 06-14-2023 08:03-0400 Heart rate 67 /min Tio Jimmy HOSPICE ADMINISTRATOR.WOOD TYPE CUTTER Work Phone: [facility] 06-14-2023 08:03-0400 Respiratory rate 16 /min Tio Jimmy HOSPICE ADMINISTRATOR.WOOD TYPE CUTTER Work Phone: [facility] 06-14-2023 08:03-0400 SaO2% (BldA) [Mass fraction] 98 % Tio Jimmy HOSPICE ADMINISTRATOR.WOOD TYPE CUTTER Work Phone: [facility] 06-14-2023 08:03-0400 Systolic blood pressure 132 mm[Hg] Tio Jimmy HOSPICE ADMINISTRATOR.WOOD TYPE CUTTER Work Phone: [facility] 05-17-2023 08:09-0400 Diastolic blood pressure 124 mm[Hg] Tio Jimmy HOSPICE ADMINISTRATOR.WO[employer] TYPE CUTTER Work Phone: [facility] 05-17-2023 08:09-0400 Systolic blood pressure 170 mm[Hg] Tio Jimmy HOSPICE ADMINISTRATOR.WOOD TYPE C[employer]TER Work Phone: [facility] 05-17-2023 07:41-0400 Body weight 88.81 kg Tio Jimmy HOSPICE ADMINISTRATOR.WO[employer] C[employer]TER Work Phone: [facility] 05-17-2023 07:41-0400 Heart rate 83 /min Tio Jimmy HOSPICE ADMINISTRATOR.WOOD TYPE CUTTER Work Phone: [facility] 05-17-2023 07:41-0400 Respiratory rate 16 /min Tio Jimmy HOSPICE ADMINISTRATOR.WOOD TYPE CUTTER Work Phone: [facility] 05-17-2023 07:41-0400 SaO2% (BldA) [Mass fraction] 98 % Tio Jimmy HOSPICE ADMINISTRATOR.WOOD TYPE CUTTER Work Phone: [facility] 03-28-2022 08:31-0400 Body weight 84.37 kg Kanchan Alonsohof HOSPICE ADMINISTRATOR.WOOD TYPE C[employer]TER Work Phone: [facility] 03-28-2022 08:31-0400 Diastolic blood pressure 80 mm[Hg] Kanchan Alonsohof HOSPICE ADMINISTRATOR.WOOD TYPE C[employer]TER Work Phone: [facility] 03-28-2022 08:31-0400 Heart rate 85 /min Kanchan Tannhof HOSPICE ADMINISTRATOR.WOOD TYPE C[employer]TER Work Phone: [facility] 03-28-2022 08:31-0400 Respiratory rate 16 /min Kanchan Tannhof HOSPICE ADMINISTRATOR.WOOD TYPE CUTTER Work Phone: [facility] 03-28-2022 08:31-0400 SaO2% (BldA) [Mass fraction] 96 % Kanchan Alonsohof HOSPICE ADMINISTRATOR.WOOD TYPE CUTTER Work Phone: [facility] 03-28-2022 08:31-0400 Systolic blood pressure 110 mm[Hg] Kanchan Tannhof HOSPICE ADMINISTRATOR.WOOD TYPE CUTTER Work Phone: [facility] 03-22-2022 09:04-0400 Body temperature 98.01 [degF] Zoila Bogner PA-C Work Phone: [facility] 03-22-2022 09:04-0400 Body weight 85.91 kg Zoila Bogner PA-C Work Phone: [facility] 03-22-2022 09:04-0400 Diastolic blood pressure 78 mm[Hg] Zoila Bogner PA-C Work Phone: [facility] 03-22-2022 09:04-0400 Heart rate 81 /min Zoila Bogner PA-C Work Phone: [facility] 03-22-2022 09:04-0400 Respiratory rate 16 /min Zoila Bogner PA-C Work Phone: [facility] 03-22-2022 09:04-0400 SaO2% (BldA) [Mass fraction] 97 % Zoila Bogner PA-C Work Phone: [facility] 03-22-2022 09:04-0400 Systolic blood pressure 126 mm[Hg] Zoila Hicks PA-C Work Phone: [facility] 03-18-2022 09:33-0400 Body temperature 97.59 [degF] Juani Brice HOSPICE ADMINISTRATOR.WOOD TYPE CUTTER Work Phone: [facility] 03-18-2022 09:33-0400 Body weight 85.73 kg Juani Brice HOSPICE ADMINISTRATOR.WOOD TYPE CUTTER Work Phone: [facility] 03-18-2022 09:33-0400 Diastolic blood pressure 98 mm[Hg] Juani Brice HOSPICE ADMINISTRATOR.WOOD TYPE CUTTER Work Phone: [facility] 03-18-2022 09:33-0400 Heart rate 86 /min Juani Brice HOSPICE ADMINISTRATOR.WOOD TYPE CUTTER Work Phone: [facility] 03-18-2022 09:33-0400 Respiratory rate 16 /min Juani Brice HOSPICE ADMINISTRATOR.WOOD TYPE CUTTER Work Phone: [facility] 03-18-2022 09:33-0400 SaO2% (BldA) [Mass fraction] 98 % Juani Brice HOSPICE ADMINISTRATOR.WOOD TYPE CUTTER Work Phone: [facility] 03-18-2022 09:33-0400 Systolic blood pressure 142 mm[Hg] Juani Brice HOSPICE ADMINISTRATOR.WOOD TYPE CUTTER Work Phone: [facility] 12-04-2021 13:20-0400 Body height 176.5 cm Lilia Montero MD Work Phone: [facility] 12-04-2021 13:20-0400 Body weight 84.82 kg Lilia Montero MD Work Phone: [facility] 12-04-2021 13:20-0400 Diastolic blood pressure 84 mm[Hg] Lilia Montero MD Work Phone: [facility] 12-04-2021 13:20-0400 Heart rate 60 /min Lilia Montero MD Work Phone: [facility] 12-04-2021 13:20-0400 Respiratory rate 12 /min Lilia Montero MD Work Phone: [facility] 12-04-2021 13:20-0400 Systolic blood pressure 136 mm[Hg] Lilia Montero MD Work Phone: [facility] Encounters Encounter Date Encounter Type Care Provider Facility Start: 03-07-2025 End: 03-07-2025 Patient encounter procedure Lyn GARCES Work Phone: [facility] Comment on above: Sialadenitis (Primar y Dx) Start: 03-07-2025 End: 03-07-2025 ambulatory LILIA MONTERO Facility:[facility] Start: 09-15-2024 End: 09-17-2024 ambulatory Tio Marquez APRN.WOOD TYPE CUTTER Work Phone: [facility] Comment on above: High blood pressure medication Start: 09-15-2024 End: 09-15-2024 Patient encounter procedure Paige Miller PA-C Work Phone: Urology Comment on above: Cyst of scrotum (Lety ney Dx) Start: 09-10-2024 End: 09-15-2024 Telephone encounter Paige Miller PA-C Work Phone: Urology Comment on above: Appointment Start: 12-30-2023 ambulatory Tio MEYER RN.WOOD TYPE CUTTER Work Phone: [facility] Comment on above: Prozac replacement Start: 06-14-2023 End: 06-14-2023 Office outpatient visit 25 minutes Tio Marquez APRN.WOOD TYPE CUTTER Work Phone: [facility] Comment on above: Anxiety and depressi on (Primary Dx); Essential hypertension, benign; Elevated bilirubin Start: 05-17-2023 End: 05-17-2023 Office outpatient visit 25 minutes Tio Marquez APRN.WOOD TYPE CUTTER Work Phone: [facility] Comment on above: Anxiety and depressi on (Primary Dx); Essential hypertension, benign; Screening for prostate cancer Start: 05-15-2023 ambulatory Lilia swann MD Work Phone: [facility] Comment on above: Switching back to pr evious medication Start: 06-13-2022 ambulatory Lilia swann MD Work Phone: [facility] Comment on above: Prescription Start: 03-28-2022 End: 03-28-2022 Patient encounter procedure Kanchan Vásquez HOSPICE ADMINISTRATOR.WOOD TYPE CUTTER Work Phone: [facility] Comment on above: Hoarseness of voice (Primary Dx); Laryngitis Start: 03-22-2022 End: 03-22-2022 Office outpatient visit 15 minutes Zoila Hicks PA-C Work Phone: [facility] Comment on above: Hoarseness of voice (Primary Dx) Start: 03-20-2022 ambulatory Lilia swann MD Work Phone: [facility] Start: 03-20-2022 Patient encounter procedure Lilia Montero MD Work Phone: [facility] Comment on above: Appointment Start: 03-18-2022 End: 03-18-2022 Patient encounter procedure Juani Brice APRN.WOOD TYPE CUTTER Work Phone: [facility] Comment on above: URI, acute (Primary Dx) Start: 12-11-2021 Telephone encounter Lilia yost MD Work Phone: [facility] Comment on above: Results Start: 12-11-2021 End: 12-11-2021 Subsequent hospital visit by physician [facility] Work Phone: Radiology Comment on above: Mass of right testic le [N50.89] Start: 12-04-2021 End: 12-04-2021 Patient encounter procedure Lilia Montero MD Work Phone: [facility] Comment on above: Wellness examination (Primary Dx); Mass of right testicle Start: 12-04-2021 End: 12-04-2021 Patient encounter status Lilia Montero MD Work Phone: [facility] Procedures Date Procedure Procedure Detail Performing Clinician [...] RSV Vaccine (1 - 1-dose 75+ series) [facility] Start: 06-10-2028 Prostate Cancer Screening Discussion Prostate Cancer Screening Discussion [facility] Start: 06-10-2028 Prostate specific antigen measurement Prostate Cancer Screening Discussion [facility] Start: 06-10-2026 Diabetes Screening Diabetes Screenin g [facility] Start: 03-01-2026 Lipid 1996 panel - S maggy or Plasma Lipid Screening [facility] Start: 03-01-2026 Lipid panel Lipid Screening [facility] Start: 03-01-2026 LIPID SCREEN LIPID SCREEN [facility] Start: 09-27-2025 Colonoscopy COLONOSCOPY [facility] Start: 09-27-2025 COLORECTAL CANCER SCREENING COLORECTAL CANCER SCREENING [facility] Start: 09-27-2025 Screening for malign ant neoplasm of colon [facility] Start: 04-26-2025 Influenza vaccination Influenza Vacc ine (#1) [facility] Start: 12-15-2024 End: 12-15-2024 Patient encounter procedure 12/15/2024 4:00 PM EDT Office Visit Urology [address] [place] [address] Paige Miller PA-C [address] [place] [address] 3 MO OV Urology Comment on above: 3 MO OV Start: 09-29-2024 End: 09-29-2024 Patient encounter procedure 09/29/2024 11:30 AM EST Appointment Radiology [address] [place], [place] [id number] Cyst of scrotum [L72.9] Radiology Comment on above: Cyst of scrotum [L72 .9] Start: 09-21-2024 End: 09-21-2024 Patient encounter procedure 09/21/2024 6:40 PM EST Office Visit [facility] [address] [place], [place] [id number] Lilia Montero MD [address] [place], [place] [id number] wants to restart BP medication; has not been seen since 06/14/23 [facility] Comment on above: wants to restart BP medication; has not been seen since 06/14/23 Start: 09-15-2024 End: 10-15-2025 US.doppler Scrotum and testicle US SCROTUM AND CONTENTS Radiology Routine Cyst of scrotum Expected: 09/15/2024 (Approximate), Expires: 10/15/2025 [facility] Work Phone: Comment on above: Expected: 09/15/2024 (Approximate), Expires: 10/15/2025 Start: 06-14-2024 Annual PCP Team Sociology Research Assistant martha Disease Visit Annual PCP Team Chronic Disease Visit [facility] Start: 05-17-2024 Annual PCP Team Sociology Research Assistant martha Disease Visit Annual PCP Team Chronic Disease Visit [facility] Start: 04-26-2024 Covid-19 Vaccine ( season) Covid-19 Vaccine ( season) [facility] Start: 04-26-2024 Influenza vaccination [facility] Start: 03-01-2024 DIABETES SCREEN DIABETES SCREEN [facility] Start: 03-01-2024 Diabetes Screening Diabetes Screenin g [facility] Start: 12-14-2023 End: 03-14-2024 Comprehensive metabolic 2000 panel - Serum or Plasma COMP METABOLIC PANEL Lab Routine Essential hypertension, benign Expected: 12/14/2023 (Approximate), Expires: 03/14/2024 [facility] Work Phone: Comment on above: Expected: 12/14/2023 (Approximate), Expires: 03/14/2024 Start: 08-26-2023 Behavioral Health Screening Behavioral Health Screening [facility] Start: 05-17-2023 End: 07-17-2023 Comprehensive metabolic 2000 panel - Serum or Plasma COMP METABOLIC PANEL Lab Routine Essential hypertension, benign Expected: 05/17/2023, Expires: 07/17/2023 [facility] Work Phone: Comment on above: Expected: 05/17/2023 , Expires: 07/17/2023 Start: 05-17-2023 End: 07-17-2023 PSA/PROSTSPECAG SCRN PSA/PROSTSPECAG SCRN Lab Routine Screening for prostate cancer Expected: 05/17/2023, Expires: 07/17/2023 [facility] Work Phone: Comment on above: Expected: 05/17/2023 , Expires: 07/17/2023 Start: 04-26-2023 Covid-19 Vaccine () Covid-19 Vaccine () [facility] Start: 04-26-2023 Influenza vaccination Influenza Vacc ine (#1) [facility] Start: 03-28-2023 ANNUAL PCP TEAM DECONTAMINATION TECHNICIAN MARTHA DISEASE VISIT ANNUAL PCP TEAM CHRONIC DISEASE VISIT [facility] Start: 03-22-2023 BP CONTROLLED (<130/80) BP CONTROLLE D (<130/80) [facility] Start: 12-04-2022 Adult depression screening assessment DEPRESSION SCREENING [facility] Start: 12-04-2022 ANNUAL PCP TEAM DECONTAMINATION TECHNICIAN MARTHA DISEASE VISIT ANNUAL PCP TEAM CHRONIC DISEASE VISIT [facility] Start: 12-04-2022 HEPATITIS C SCREENING HEPATITIS C [facility] Comment on above: Postponed from 01/16 (Declined at this time) Start: 12-04-2022 HIV SCREENING HIV SCREENING [facility] Comment on above: Postponed from 01/16 (Declined at this time) Start: 08-26-2022 Depression Assessment Depression Ass essment [facility] Start: 04-26-2022 Influenza vaccination [facility] Start: 08-26-2021 DEPRESSION ASSESSMENT DEPRESSION ASS [facility] Start: 06-07-2021 COVID-19 VACCINE (3 - Booster for Moderna series) COVID-19 VACCINE (3 - Booster for Moderna series) [facility] Start: 03-02-2021 COVID-19 VACCINE (3 - Booster for Moderna series) COVID-19 VACCINE (3 - Booster for Moderna series) [facility] Start: 03-02-2021 Covid-19 Vaccine (3 - Moderna series) Covid-19 Vaccine (3 - Moderna series) [facility] Start: 01-17-2020 PROSTATE CANCER SCREENING DISCUSSION PROSTATE CANCER SCREENING DISCUSSION [facility] Start: 01-28-2019 Urine microalbumin profile [facility] Start: 2015 Pneumococcal Vaccine : 50+ (1 of 1 - PCV) Pneumococcal Vaccine: 50+ (1 of 1 - PCV) [facility] Start: 2015 SHINGRIX VACCINE (1 of 2) SHINGRIX VACCINE (1 of 2) [facility] Start: 2010 COLOGUARD (FIT-DNA) COLOGUARD (FIT-D NA) [facility] Start: [address] COLONOGRAPHY [facility] Start: 2010 FECAL OCCULT BLOOD FECAL OCCULT BLOO D [facility] Start: 2010 Screening for malign ant neoplasm of colon [facility] Start: 2010 SIGMOIDOSCOPY SIGMOIDOSCOPY [facility] Start: 01-17-1984 Hepatitis B Vaccine (1 of 3 - 19+ 3-dose series) Hepatitis B Vaccine (1 of 3 - 19+ 3-dose series) [facility] Start: 1983 Anxiety Screening Anxiety Screening [facility] Start: 1983 BP CONTROLLED (<130/80) BP CONTROLLE D (<130/80) [facility] Start: 1983 Depression Screening Depression Scre ening [facility] Start: 1983 Hepatitis C Screening Hepatitis C [facility] Start: 1983 Hepatitis C screening Hepatitis C [facility] Start: 1983 HIV Screening HIV Screening [facility] Start: 1983 HIV screening HIV Screening [facility] Start: 1965 HEPATITIS B (1 of 3 - 3-dose series) HEPATITIS B (1 of 3 - 3-dose series) [facility] Start: 1965 Hepatitis B Vaccine (1 of 3 - 3-dose series) Hepatitis B Vaccine (1 of 3 - 3-dose series) [facility] End: 01-03-2023 Us scrotum & contents US SCROTUM AND CONTENTS Radiology Routine Mass of right testicle 1 Occurrences starting 12/04/2021 until 01/03/2023 [facility] Work Phone: Comment on above: 1 Occurrences starti ng 12/04/2021 until 01/03/2023 End: 10-15-2025 US.doppler Unspecified body region US DOPPLER COMPLETE Radiology Routine Cyst of scrotum 1 Occurrences starting 09/15/2024 until 10/15/2025 [facility] Comment on above: 1 Occurrences starti ng 09/15/2024 until 10/15/2025 [facility] Immunizations Immunization Date Immunization Notes Care Provider Fa [facility] 06-26-2017 influenza, injectabl e, quadrivalent, contains preservative Lilia Montero MD Work Phone: [facility] 06-26-2017 influenza virus vaccine, unspecified formulation Lilia Montero MD Work Phone: [facility] 06-14-2011 influenza virus vaccine, unspecified formulation Lilia Montero MD Work Phone: [facility] 01-28-2009 tetanus toxoid, redu meri diphtheria toxoid, and acellular pertussis vaccine, adsorbed Lilia Montero MD Work Phone: [facility] Payers Date Payer Category Payer [employer] BLUE ACCE PPO [id number] 2023 Unknown [id number] 2021 Unknown TIARRA OLMEDO PPO [id number] 2021-Present [phone] [address] [place] [address] PPO [id number] 2021 Unknown [id number] Social History Date Type Detail Facility Start: 12-18-2010 End: 05-17-2023 Tobacco smoking status NHIS Never smoked tobacco [facility] Start: 12-18-2010 End: 05-17-2023 Tobacco use and exposure Smokeless tobacco non-user [facility] Start: 12-04-2021 End: 09-15-2024 Alcohol intake Current drinker of alcohol (finding) [facility] Start: 11-27-2021 History SDOH Alcohol Frequency 3 [facility] Start: 11-27-2021 History SDOH Alcohol Std Drinks 1 [facility] Start: 09-27-2020 History SDOH Alcohol Comment 1-2 times a month [facility] Start: 11-27-2021 History SDOH Social Connections Phone 2 [facility] Start: 11-27-2021 History SDOH Physica l Activity DPW 5 [facility] Start: 11-27-2021 History SDOH Physica l Activity MPS 6 [facility] Start: 1965 Sex Assigned At Not on file [facility] Start: 11-24-2021 End: 03-28-2022 Exposure to SARS-CoV-2 (event) Not sure [facility] Start: 11-27-2021 End: 05-17-2023 History of Social function [place] [facility] Start: 11-27-2021 End: 05-17-2023 Social connection and isolation panel [facility] Do you belong to any clubs or organizations such as spiritism groups, unions, fraternal or athletic groups, or school groups? Yes [facility] Are you now , , , , never or living with a partner? [facility] How often to you hav e a drink containing alcohol? 2-4 times a month [facility] How many standard dr inks containing alcohol do you have on a typical day? 1 or 2 [facility] How often do you hav e 6 or more drinks on 1 occasion? Never [facility] How hard is it for y ou to pay for the very basics like food, housing, medical care, and heating Not hard at all [facility] Do you feel stress - tense, restless, nervous, or anxious, or unable to sleep at night because your mind is troubled all the time - these days [OSQ] Only a little [facility] (I/We) worried carie er (my/our) food would run out before (I/we) got money to buy more. Never true [facility] In the past 12 month s, was there a time when you were not able to pay the mortgage or rent on time? No [facility] Start: 09-14-2020 Gender identity Identifies as male gender (finding) [facility] Start: 09-14-2020 Sexual orientation Heterosexual (cortez bradshaw) [facility] Clinical Notes 12-04-2021 to 03-07-2025 Lyn Caban PA - 03/07/2025 12:41 PM EDTTelephone Encounter - Tio Marquez APRN.[facility] - 09/17/2024 10:32 AM ESTTelephone Encounter - Tio Marquez APRN.[facility] - 09/17/2024 10:32 AM EST Note Date & Type Note Facility 03-07-2025 Note HNO ID: [id number] Author: LYN CABAN PA Service: ? Author Type: Physician Sewing Machine Repairer Type: Progress Notes Filed: 03/07/2025 12:43 Note [...] oral intake. - Prescription sent to [facility] Recording using [employer] software for draft documentation of the visit was discussed with the patient/authorized provider service representative; all questions welcomed and answered. Patient/authorized provider service representative agreed to proceed Differential Diagnoses - Sialoadenitis/parotiditis is more likely for the following reason(s): suggested by HANDP - Torsten's angina is less likely for the following reason(s): HANDP not suggestive Disposition The patient was discharged. Procedures [facility] 03-07-2025 History of Presen t illness Narrative [...] oral intake. - Prescription sent to [facility] using [employer] software for draft documentation of the visit was discussed with the patient/authorized provider service representative; all questions welcomed and answered. Patient/authorized provider service representative agreed to proceed Differential Diagnoses - Sialoadenitis/parotiditis is more likely for the following reason(s): suggested by H&P - Torsten's angina is less likely for the following reason(s): H&P not suggestive Disposition The patient was discharged. Procedures documented in this encounter [facility] 09-17-2024 Telephone encounter Note Rx sent for 30 days The following approved medication requests have been transmitted electronically. Requested Prescriptions Signed Prescriptions Disp Refills lisinopril (ZESTRIL) 10 mg tablet 30 tablet 0 Sig: Take 1 tablet by mouth once daily. Tio Marquez APRN.CNP [facility] 09-17-2024 Miscellaneous Notes Rx sent for 30 [...] needed an appt. documented in this encounter [facility] 09-17-2024 Telephone encounter Note Pt unable to make appt as scheduled next week in the evening. Are you willing to send in #30 day supply to get pt through until being seen. Pt last appt 05/2023. Offered to assist pt in making appt. Please advise. Debbie Caballero MA [facility] 09-16-2024 Telephone encounter Note Appt scheduled. Pt notified via [facility] message. Nathanael Richardson LPN [facility] 09-16-2024 Telephone encounter Note See pt message. SARAH 06/14/23 and no upcoming appt. Pt advised needed an appt. [facility] 09-15-2024 Instructions Paige Miller PA-C - 09/15/2024 11:41 AM EST > Scrotum US - orders placed > Follow up for discussion of abnormal results requiring procedure documented in this encounter [facility] 09-15-2024 Note HNO ID: [id number] Author: PAIGE MILLER PA-C Service: ? 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 [facility] 09-15-2024 History of Presen t illness Narrative Images from the original note were not included. [facility] [...] Friends and Family: Twice a week Attends Anabaptism Services: Never Active Member of Clubs or [...] Hewitt, JOSE, HECTOR documented in this encounter [facility] 09-15-2024 Telephone encounter Note Patient present for appointment. Has not been seen for testicular concern since US done 12/11/2021. Zach Rosario LPN [facility] 09-15-2024 Miscellaneous Notes Patient present for appointment. Has not been seen for testicular concern since US done 12/11/2021. Zach Rosario LPN Called patient. No answer- left message. Patient scheduled for 09/15/2024 in urology for testicular growth. Has he been seen elsewhere and if so where? Zach Rosario LPN documented in this encounter [facility] 09-10-2024 Telephone encounter Note Called patient. No answer- left message. Patient scheduled for 09/15/2024 in urology for testicular growth. Has he been seen elsewhere and if so where? Zach Rosario LPN [facility] 06-14-2023 History of Presen t illness Narrative [...] needed. This note was partly generated using [employer] voice recognition dictation and may contain some misspelled or inaccurate words missed on review. documented in this encounter [facility] 06-14-2023 Instructions Tio Marquez APRN.CNP - 06/14/2023 8:15 AM EDT Continue current medications Repeat labs in 6 months Tio Marquez APRN.CNP documented in this encounter [facility] 05-17-2023 History of Presen t illness Narrative [...] ICD10: Z12.5 - PSA/PROSTSPECAG YUMIKON Tio Marquez APRN.WOOD TYPE CUTTER RTO in 1 months, sooner if needed. This note was partly generated using [employer] voice recognition dictation and may contain some misspelled or inaccurate words missed on review. documented in this encounter [facility] 03-28-2022 Instructions Kanchan Vásquez APRN.CNP - 03/28/2022 [...] agent in them. documented in this encounter [facility] 03-28-2022 History of Presen t illness Narrative [...] at home. - May continue to use qmyb-jxi-qoiqpek cold and cough medication as needed for [...] APRN.MARIKA This note was partially generated using [employer] voice recognition system. Note was reviewed for accuracy. There may be minor misspellings or grammar miscues with [employer] voice recognition. documented in this encounter [facility] 03-22-2022 History of Presen t illness Narrative [...] HECTOR Terry PA-C documented in this encounter [facility] 03-18-2022 Instructions Juani Brice APRN.WOOD TYPE CUTTER - 03/18/2022 9:50 AM EDT RESPIRATORY INFECTION [...] by coughs, sneezes, and direct contact, especially aljn-pu-anrb. A respiratory tract infection usually clears up [...] F (39 C). documented in this encounter [facility] 03-18-2022 History of Presen t illness Narrative This note was created using [employer]. Subjective Philomena Barker is a 57 year [...] history is provided by the patient. No contracting analyst was used. URI He complains of cough. [...] Juani Brice APRN.MARIKA documented in this encounter [facility] 12-12-2021 Miscellaneous Notes Pt notified. Transferred to [...] Lilia Montero MD documented in this encounter [facility] 12-11-2021 History of Presen t illness Narrative [...] 2021 8:26 AM documented in this encounter [facility] 12-04-2021 History of Presen t illness Narrative [...] cycling, running and playing golf. Rides with [employer] and [employer] cycling groups. Depression/BEATRIZ: No longer taking Effexor. [...] Lilia Montero MD documented in this encounter [facility] Evaluation note Diagnosis Wellness examination- Primary Mass of right testicle [facility]* Diagnosis Mass of right testicle [facility] [place] [facility] Diagnosis Hydrocele, encysted- Primary Encysted hydrocele [facility] [place] [facility]* Diagnosis URI, acute- Primary Acute upper respiratory infections of unspecified site [facility] [place] [facility]* Diagnosis Hoarseness of voice- Primary Dysphonia [facility] [place] [facility]* Diagnosis Hoarseness of voice- Primary Dysphonia Laryngitis Acute laryngitis, without mention of obstruction [facility] [place] [facility]* Diagnosis Anxiety and depression- Primary Dysthymic disorder Essential hypertension, benign Screening for prostate cancer Special screening for malignant neoplasm of prostate [facility] [place] [facility]* Diagnosis Anxiety and depression- Primary Dysthymic disorder Essential hypertension, benign Elevated bilirubin Jaundice, unspecified, not of documented [facility] [place] [facility]* Diagnosis Cyst of scrotum- Primary Sebaceous cyst [facility] [place] [facility]* Diagnosis Essential hypertension, benign [facility] [place] [facility]* Diagnosis Sialadenitis- Primary Sialoadenitis [facility] Diagnostic Procedure Only (Routine) - Authorized Specialty Diagnoses / Procedures Referred By Contac t Referred To Contact US IMAGING Diagnoses Mass of right testicle Procedures US SCROTUM AND CONTENTS US SCROTUM & CONTENTS Lilia Montero MD [address] [place] [address] Us Imaging Referral ID Status Reason Start Date Expiration Date Visits Requested Visits Authorized [id number] Authorized Auto-Generat ed Referral 12/04/2021 01/03/2023 1 1 [facility] for referral (narrative)* Diagnostic Procedure Only (Routine) - Closed Specialty Diagnoses / Procedures Referred By Charlie phillips Referred To Contact US IMAGING Diagnoses Mass of right testicle Procedures US SCROTUM AND CONTENTS US SCROTUM & CONTENTS Lilia Montero MD [address] [place] [address] Us Imaging Referral ID Status Reason Start Date Expiration Date V isits Requested Visits Authorized [id number] Closed Auto-Generate d Referral 12/04/2021 01/03/2023 1 1 [facility] for referral (narrative)* Diagnostic Procedure Only (Routine) - Authorized Specialty Diagnoses / Procedures Referred By Charlie phillips Referred To Contact US IMAGING Diagnoses Cyst of scrotum Procedures US DOPPLER COMPLETE DUP-SCAN ARTL TERESSA ABDL/PEL/SCROT&/RPR ORGN COM Paige Miller PA-C [address] [place] [id number] Us Imaging [facility] Referral ID Status Reason Start Date Expiration Date Visits Requested Visits Authorized [id number] Authorized Auto-Generat ed Referral 09/15/2024 10/15/2025 1 1 * Diagnostic Procedure Only (Routine) - Authorized Specialty Diagnoses / Procedures Referred By Charlie phillips Referred To Contact US IMAGING Diagnoses Cyst of scrotum Procedures US SCROTUM AND CONTENTS US SCROTUM & CONTENTS Paige Miller PA-C [address] [place] [address] [place] [address] Referral ID Status Reason Start Date Expiration Date Visits Requested Visits Authorized [id number] Authorized Auto-Generat ed Referral 09/15/2024 10/15/2025 1 1 [facility] Summary Purpose Family History No Family History Records FoundNo Family History Records Found Advance Directives No Advanced Directives Records FoundDocuments on File Type Date Recorded 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 Advance Directive(s) 09/27/2020 9:42 AM Documents on File Type Date Recorded 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 Advance Directive(s) 09/27/2020 9:42 AM Reason for Referral Specialty Diagnoses / Procedures Referred By Contac t Referred To Contact Urology Diagnoses Hydrocele, encysted Procedures CONSULT TO UROLOGY OFFICE/OUTPATIENT [facility] 60-74 MINUTES Lilia Montero MD [address] [place] [address] Referral ID Status Reason Start Date Expiration Date Visits Requested Visits Authorized [id number] Authorized PCP Requested Referral 12/11/2021 12/11/2022 1 1 Specialty Diagnoses / Procedures Referred By Contac t Referred To Contact Ent - Otolaryngology Diagnoses Hoarseness of voice Procedures CONSULT TO ENT OFFICE/OUTPATIENT [facility] 60-74 MINUTES Kanchan Vásquez APRN.CNP [address] [place] [address] Referral ID Status Reason Start Date Expiration Date Visits Requested Visits Authorized [id number] Authorized PCP Requested Referral 03/28/2022 03/28/2023 1 1 Additional Source Comments (unrecognized sect ion and content) No Status Records FoundNo Status Records Found INFORMATION SOURCE (unrecogn ized section and content) DATE CREATED AUTHOR 06/07/2020 [facility] DATE CREATED AUTHOR AUTHOR'S ORGANIZ ATION 03/10/2025 [facility] Source Comments (unrecognize d section and content) In the event this informatio n is protected by the Federal Confidentiality of Alcohol and Drug Abuse Patient Records regulations: The Federal rules restrict any use of the information to criminally investigate or prosecute any alcohol or drug abuse patient.[facility] the event this information is protected by the Federal Confidentiality of Alcohol and Drug Abuse Patient Records regulations: The Federal rules restrict any use of the information to criminally investigate or prosecute any alcohol or drug abuse patient.[facility] the event this information is protected by the Federal Confidentiality of Alcohol and Drug Abuse Patient Records regulations: The Federal rules restrict any use of the information to criminally investigate or prosecute any alcohol or drug abuse patient.[facility] the event this information is protected by the Federal Confidentiality of Alcohol and Drug Abuse Patient Records regulations: The Federal rules restrict any use of the information to criminally investigate or prosecute any alcohol or drug abuse patient.[facility] the event this information is protected by the Federal Confidentiality of Alcohol and Drug Abuse Patient Records regulations: The Federal rules restrict any use of the information to criminally investigate or prosecute any alcohol or drug abuse patient.[facility] the event this information is protected by the Federal Confidentiality of Alcohol and Drug Abuse Patient Records regulations: The Federal rules restrict any use of the information to criminally investigate or prosecute any alcohol or drug abuse patient.[facility] the event this information is protected by the Federal Confidentiality of Alcohol and Drug Abuse Patient Records regulations: The Federal rules restrict any use of the information to criminally investigate or prosecute any alcohol or drug abuse patient.[facility]In the event this information is protected by the Federal Confidentiality of Alcohol and Drug Abuse Patient Records regulations: The Federal rules restrict any use of the information to criminally investigate or prosecute any alcohol or drug abuse patient.[facility] the event this information is protected by the Federal Confidentiality of Alcohol and Drug Abuse Patient Records regulations: The Federal rules restrict any use of the information to criminally investigate or prosecute any alcohol or drug abuse patient.[facility]In the event this information is protected by the Federal Confidentiality of Alcohol and Drug Abuse Patient Records regulations: The Federal rules restrict any use of the information to criminally investigate or prosecute any alcohol or drug abuse patient.[facility] the event this information is protected by the Federal Confidentiality of Alcohol and Drug Abuse Patient Records regulations: The Federal rules restrict any use of the information to criminally investigate or prosecute any alcohol or drug abuse patient.[facility]In the event this information is protected by the Federal Confidentiality of Alcohol and Drug Abuse Patient Records regulations: The Federal rules restrict any use of the information to criminally investigate or prosecute any alcohol or drug abuse patient.[facility]In the event this information is protected by the Federal Confidentiality of Alcohol and Drug Abuse Patient Records regulations: The Federal rules restrict any use of the information to criminally investigate or prosecute any alcohol or drug abuse patient.[facility]In the event this information is protected by the Federal Confidentiality of Alcohol and Drug Abuse Patient Records regulations: The Federal rules restrict any use of the information to criminally investigate or prosecute any alcohol or drug abuse patient.[facility]In the event this information is protected by the Federal Confidentiality of Alcohol and Drug Abuse Patient Records regulations: The Federal rules restrict any use of the information to criminally investigate or prosecute any alcohol or drug abuse patient.[facility] HospitalIn the event this information is protected by the Federal Confidentiality of Alcohol and Drug Abuse Patient Records regulations: The Federal rules restrict any use of the information to criminally investigate or prosecute any alcohol or drug abuse patient.[facility] Reason for Visit (unrecogniz ed section and content) Reason Comments Wellness Reason Comments Radiology US Specialty Diagnoses / Procedures Referred By Contac t Referred To Contact US IMAGING Diagnoses Mass of right testicle Procedures US SCROTUM AND CONTENTS US SCROTUM & CONTENTS Lilia Montero MD [address] [place] [address] Us Imaging Referral ID Status Reason Start Date Expiration Date V isits Requested Visits Authorized [id number] Closed Auto-Generate d Referral 12/04/2021 01/03/2023 1 [...] Care Teams (unrecognized sec tion and content) Overweaver Relationship Specialty Start Date End Date Lilia Montero MD [address] [place], [place] [id number] PCP - General Family Practice 01/30/11 Overweaver Relationship Specialty Start Date End Date Lilia Montero MD [address] [place], [place] [id number] PCP - General Family Practice 01/30/11 Overweaver Relationship Specialty Start Date End Date Lilia Montero MD [address] [place] [address] PCP - General Family Practice 01/30/11 Overweaver Relationship Specialty Start Date End Date Lilia Montero MD [address] [place] [address] PCP - General Family Practice 01/30/11 Overweaver Relationship Specialty Start Date End Date Lilia Montero MD [address] [place] [address] PCP - General Family Practice 01/30/11 Overweaver Relationship Specialty Start Date End Date Lilia Montero MD [address] [place] [address] PCP - General Family Practice 01/30/11 Overweaver Relationship Specialty Start Date End Date Lilia Montero MD [address] [place] [address] PCP - General Family Practice 01/30/11 Overweaver Relationship Specialty Start Date End Date Lilia Montero MD [address] [place] [address] PCP - General Family Medicine 01/30/11 Overweaver Relationship Specialty Start Date End Date Lilia Montero MD [address] [place] [address] PCP - General Family Medicine 01/30/11 Overweaver Relationship Specialty Start Date End Date Lilia Montero MD [address] [place] [address] PCP - General Family Medicine 01/30/11 Overweaver Relationship Specialty Start Date End Date Lilia Montero MD [address] [place] [address] PCP - General Family Medicine 01/30/11 Overweaver Relationship Specialty Start Date End Date Lilia Montero MD [address] [place] [address] PCP - General Family Medicine 01/30/11 Overweaver Relationship Specialty Start Date End Date Lilia oMntero MD [address] [place] [address] PCP - General Family Medicine 01/30/11 Kanchan Vásquez APRN.WOOD TYPE CUTTER [address] [place] [address] Construction Project Administrator Family Medicine 08/02/24 Tio Marquez APRN.WOOD TYPE CUTTER [address] [place] [address] Construction Project Administrator Family Medicine 08/11/24 Overweaver Relationship Specialty Start Date End Date Lilia Montero MD [address] [place] [address] PCP - General Family Medicine 01/30/11 Kanchan Vásquez APRN.WOOD TYPE CUTTER [address] [place] [address] Construction Project Administrator Family Medicine 08/02/24 Tio Marquez APRN.WOOD TYPE CUTTER [address] [place] [address] [facility] Overweaver Relationship Specialty Start Date End Date Lilia Montero MD [address] [place] [address] PCP - General Family Medicine 01/30/11 Kanchan Vásquez APRN.WOOD TYPE CUTTER [address] [place] [address] Construction Project Administrator Family Medicine 08/02/24 Tio Marquez APRN.WOOD TYPE CUTTER [address] [place] [address] Construction Project Administrator Family Medicine 08/11/24 Overweaver Relationship Specialty Start Date End Date Lilia Montero MD [address] [place] [address] PCP - General Family Medicine 01/30/11 Tio Marquez APRN.[facility] [address] [place] [address] Construction Project Administrator Family [facility] 08/11/24 FOR RECORDS PERTAINING TO PATIENTS WHO [...] BE BASED ON THE PRIMARY CLINICAL RECORDS. [employer] provides no warranty or guarantee of the accuracy or completeness of information in this document.
--- NOTE | 2025-04-25 20:56 | ECHOD_ITS ---
Reason For Study Reason For Study: TIA/CVA Procedure This was a 2D Doppler, Color Flow transthoracic echocardiogram. The study was technically difficult. Exam performed portable in patient room. Left Ventricle Normal left ventricle. The estimated ejection fraction is 55???60 %. Right Ventricle Normal right ventricle. Normal systolic function. Atria Normal left atrium. Normal right atrium. Bubble contrast study is negative for PFO/ASD. Mitral Valve The mitral valve is structurally normal. No prolapse or stenosis seen. Tricuspid Valve Normal tricuspid valve. Aortic Valve Trisinus/trileaflet aortic valve. Pulmonic Valve The pulmonic valve is not well visualized. Great Vessels The aortic root is not well visualized. Pericardium/Pleural No pericardial effusion. Medication Performed a rapid injection of agitated mix of 9 cc saline and 1cc air to assess for atrial septal defect. MMode/2D Measurements & Calculations LVIDd: 4.9 cm IVSd: 1.1 cm LAV(MOD-sp4): 35.3 ml LVIDs: 3.2 cm LVPWd: 0.96 cm RVDd: 3.8 cm FS: 33.9 % LVAd ap4: 28.5 cm2 SV(MOD-sp4): 53.8 ml SV(sp4-el): 58.4 ml LVLd ap4: 7.8 cm SI(MOD-sp4): 28.0 ml/m2 EDV(MOD-sp4): 84.2 ml EDV(sp4-el): 88.1 ml LVAs ap4: 15.2 cm2 LVLs ap4: 6.6 cm ESV(MOD-sp4): 30.4 ml ESV(sp4-el): 29.7 ml EF(MOD-sp4): 63.9 % EF(sp4-el): 66.3 % LA A4 area: 15.6 cm2 LA dimension(2D): 3.0 cm RA A4 area: 17.2 cm2 Time Measurements MV dec time: 0.23 sec Doppler Measurements & Calculations MV E max eduardo: 50.8 cm/sec Lat Peak E' Eduardo: 12.4 cm/sec Med Peak E' Eduardo: 9.6 cm/sec MV A max eduardo: 63.3 cm/sec E/E' lat: 4.1 E/E' med: 5.3 MV E/A: 0.80 MV V2 max: 71.2 cm/sec MV P1/2t max eduardo: 69.6 cm/sec Ao V2 max: 116.9 cm/sec MV max P.0 mmHg MV P1/2t: 81.2 msec Ao max P.5 mmHg MV V2 mean: 38.5 cm/sec Ao V2 mean: 80.7 cm/sec MV mean P.72 mmHg MV dec slope: 250.8 cm/sec2 Ao mean P.0 mmHg MV V2 VTI: 19.3 cm MVA(P1/2t): 2.7 cm2 Ao V2 VTI: 24.6 cm AV (velocity ratio): 0.87 LV V1 max: 94.3 cm/sec TR max eduardo: 176.4 cm/sec LV V1 max P.6 mmHg TR max P.4 mmHg LV V1 mean P.9 mmHg LV V1 mean: 63.3 cm/sec LV V1 VTI: 21.4 cm ECHO/Echo Complete Interpretation Summary The estimated ejection fraction is 55???60 %. Bubble study performed which is negative with no intracardiac shunt. No previou s echo to compare Ordering Physician: John Gottlieb Performed By: Óscar Arevalo RCS
[2025-04-25 21:17] VITALS: BMI 24.4
[2025-04-25 21:23] VITALS: BP 156/96; PULSE 74; RESP 18; TEMP 36.7; O2SAT 99
[2025-04-25 21:25] LABS: Alcohol, Blood (Medical)-Serum < 10.1 mg/dL (<=10.0)
[2025-04-25] MEDS: Scopolamine 1mg/72hr Patch 1 PATCH TD (21:52)
[2025-04-25] MEDS: 0.9% Normal Saline (1000mL) 1,000 ML 70 ML IV (21:53)
[2025-04-25] MEDS: 0.9% Saline Lock 10 ML Syringe IV (21:53)
[2025-04-25 21:57] LABS: Troponin T High Sens 2 HR < 6 ng/L (<=22)
[2025-04-25 23:50] LABS: Barbiturate Urine NEGATIVE (< 200 ng/mL); Benzodiazepine Urine NEGATIVE (< 200 ng/mL); PCP Urine NEGATIVE (< 25 ng/mL); THC Urine NEGATIVE (< 50 ng/mL)
[2025-04-26 00:15] LABS: Troponin T High Sens 4 HR < 6 ng/L (<=22)
[2025-04-26 01:00] VITALS: O2SAT 99
[2025-04-26 01:25] VITALS: BP 139/91; PULSE 78; RESP 16; TEMP 36.7; O2SAT 98
[2025-04-26 01:43] VITALS: BMI 24.4
--- OUTSIDE RECORDS SUMMARY | 2025-04-26 01:43 | XMS RPT_ITS | CCD ---
Author Organization [facility] Care Team Providers Care Autistic Teacher Name Role Phone Lilia Montero MD Primary Care Provider Lilia Montero MD Primary Care Provider [phone] Tannhof DRAMATIC AGENT.AUTO LOCATORKanchan Unavailable [phone] Jimym DRAMATIC AGENTTio WILSON Unavailable PAIGE MILLER Attending Unavailable LILIA MONTERO Primary Care Unavailable LILIA MONTERO Primary Care Unavailable LYN CABAN Attending Unavailable Dr. Lilia Montero MD Primary Care Provider Dr. Bishnu Bacon MD Emergency Provider [phone] John Gottlieb DO Admit Provider Unavail able Dr. John Gottlieb DO Attending Provider Unav ailable Allergies Allergy Classification Reported Allergen(s) Allergy Type Date of Onset Reaction(s) Facility (17 sources) Seasonal allergy; Translations: [SEASONAL ALLERGIES] Propensity to adverse reactions 01-30-2011 Intolerance [facility] Work Phone: Medications Current Medications Medication [...] on above: Take 1 tablet by caitlyn th twice daily for 7 days. lisinopril 10 [...] Take 1 tablet by caitlyn once daily. Multivitamin With Minerals 1 EACH tablet (1 source) Start: 06-04-2020 take 1 tablet by mouth once daily Multivitamin With Minerals 1 EACH tablet Active 1 NMA PO DAILY June 04, 2020 12:00am predniSONE 20 mg oral tablet (5 sources) [...] with food. Take 2 tablets by mo [facility] once daily for 5 days. Completed/Discontinued Medications [...] Comment on above: Take 1 tablet by [facility] once daily. FLUoxetine 20 mg oral capsule (13 sources) Serotonin Reuptake Inhibitor Start: 12-11-2021 End: 09-15-2024 take 1 capsule by mouth once daily FLUoxetine (PROZAC) 20 mg capsule Take 1 capsule by mouth once daily. 90 capsule 3 06/14/2023 09/15/2024 Discontinued Comment on above: Take 1 capsule by mo [facility] once daily. hydrOXYzine pamoate 25 mg oral capsule (1 source) Antihistamine Start: 06-04-2020 End: 04-25-2025 take 1 capsule by mouth three times daily as needed for anxiety Hydroxyzine Pamoate 25 MG capsule Discontinued 25 mg PO 3 TIMES DAILY NEEDED as needed for Anxiety 20 0 June 04, 2020 12:00am April 25, 2025 6:51pm 24 hr venlafaxine 37.5 mg extended release [...] Comment on above: Take 1 capsule by [facility] once daily. Take one pill daily for 2 weeks, then take one pill every other days for two weeks, then discontinue Problems Problem Classification Problem Date Documented Da te Episodic/Chronic Anxiety disorders (2 sources) Mixed anxiety and depressive disorder; Translations: [Anxiety disorder, unspecified] 05-17-2023 Chronic Conditions associated with dizziness or vertigo (2 sources) Vertigo; Translations: [Dizziness and giddiness] 04-25-2025 Episodic Diseases of mouth; excluding dental (2 sources) Sialoadenitis; Translations: [Sialoadenitis, unspecified] Onset: 03-07-2025 03-07-2025 Episodic Essential hypertension (20 sources) Hypertensive disorder; Translations: [Essential (primary) hypertension] Onset: 12-18-2010 12-18-2010 Chronic Other eye disorders (2 sources) Horizontal nystagmus; Translations: [Other forms of nystagmus] 04-25-2025 Chronic Other liver diseases (1 source) Increased bilirubin level; Translations: [Unspecified jaundice] 06-14-2023 Episodic Other male genital disorders (2 sources) Testicular mass; Translations: [Other specified disorders of the male genital organs] Episodic Other male genital disorders (1 source) Encysted hydrocele of spermatic cord; Translations: [Encysted hydrocele] Episodic Other nervous system disorders (2 sources) Ataxia; Translations: [Ataxia, unspecified] 04-25-2025 Episodic Other screening for suspected conditions (not [...] Results Test Name Value Interpretation Reference Range Facility Absolute lymphocyte countOrd ered By: Bishnu Bacon on 04-25-2025 Lymphocytes Auto (Unsp spec) [#/Vol] 0.73 10*3/uL Low 0.83-4.[address] [facility] Absolute neutrophil countOrd ered By: Bishnu Bacon on 04-25-2025 Neutrophils (Bld) [#/Vol] 7.9 10*3/uL High 2.0-7.[address] [facility] Activated partial thrombopla stin time (aPTT) in platelet poor plasma by coagulation aOrdered By: Bishnu Bacon on 04-25-2025 aPTT Coag (PPP) [Time] 21.1 s Low 24.1-36.2 [facility] Anion gap in Serum or Plasma Ordered By: Bishnu Bacon on 04-25-2025 Anion gap [Moles/Vol] 13 mmol/L 5-15 [facility] Automated lymphocyte count a s percentage of total leukocytesOrdered By: Bishnugita Garciao on 04-25-2025 Lymphocytes/100 WBC Auto (Unsp spec) 8.2 % Low 19-[address] [facility] BUN/creatinine ratioOrdered By: Bishnu Bacon on 04-25-2025 Urea nitrogen/Creatinine [Mass ratio] 17.4 mg/mg 10-[address] [facility] Basophil percentageOrdered B y: Bishnu Bacon on 04-25-2025 Basophils/100 WBC (Bld) 0.2 % 0-1 [facility] Carbon dioxide, total [Moles /volume] in Central venous bloodOrdered By: Bishnugita Bacon on 04-25-2025 CO2 [Moles/Vol] 21.3 mmol/L 21.0-32.[address] [facility] Chloride assayOrdered By: [facility] Bacon on 04-25-2025 Chloride [Moles/Vol] 102 mmol/L 98-108 [facility] Eosinophil percentageOrdered By: Bishnu Bacon on 04-25-2025 Eosinophils/100 WBC (Bld) 0.0 % 0-[address] [facility] Erythrocyte distribution wid th ratioOrdered By: Bishnu Bacon on 04-25-2025 Erythrocyte distribution width (RBC) [Ratio] 11.3 % Low 11.6-14.[address] [facility] Erythrocyte distribution wid th standard deviationOrdered By: Bishnu Bacon on 04-25-2025 Erythrocyte distribution width (RBC) [Ratio] 35.1 fl 35.1-43.[address] [facility] Glomerular filtration rate ( GFR) estimation/1.73 sq m using serum, plasma, or whole bOrdered By: Bishnugita Bacon on 04-25-2025 GFR/1.73 sq M.predicted among non-blacks MDRD (S/P/Bld) [Vol rate/Area] 95 mL/min/{1.73_m2} >60 [facility] Comment on above: mL/min/1.73m2 CKD-EP I Creatinine Equation (2020) Hematocrit Auto (Bld) [Volum e fraction]Ordered By: Bishnugita Bacon on 04-25-2025 Hematocrit (Bld) [Volume fraction] 43.6 % 40-[address] [facility] Hemoglobin measurementOrdere d By: Bishnu Bacon on 04-25-2025 Hemoglobin (Bld) [Mass/Vol] 16.2 g/dL 13.0-16.[address] [facility] Immature granulocytes/100 WB C Auto (Bld)Ordered By: Bishnu Bacon on 04-25-2025 Immature granulocytes/100 WBC (Bld) 0.300 % 0.0-0.[address] [facility] Comment on above: IG% - Immature Granu locytes (promyelocytes, myelocytes and metamyelocytes) > 1% indicates that a LEFT SHIFT is Present. International normalized rat io (INR) calculationOrdered By: Bishnu Bacon on 04-25-2025 INR Coag (Bld) [Relative time] 1.0 {INR} [facility] MCV (mean corpuscular volume ) determinationOrdered By: Bishnu Bacon on 04-25-2025 MCV (RBC) [Entitic vol] 86.0 fL 80-94 [facility] Mean corpuscular hemoglobin (MCH) determinationOrdered By: Bishnugita Bacon on 04-25-2025 MCH (RBC) [Entitic mass] 32.0 pg 27.0-32.[address] [facility] Mean corpuscular hemoglobin concentration (MCHC) determinationOrdered By: Bishnu Bacon on 04-25-2025 MCHC (RBC) [Mass/Vol] 37.2 g/dL High 32-36 [facility] Mean platelet volume determi nationOrdered By: Bishnu Bacon on 04-25-2025 Platelet mean volume (Bld) [Entitic vol] 9.3 fL 6.2-12.[address] [facility] Monocyte percentageOrdered B y: Bishnu Bacon on 04-25-2025 Monocytes/100 WBC (Bld) 1.9 % 0-10 [facility] Neutrophil percentageOrdered By: Bishnugita Bacon on 04-25-2025 Neutrophils/100 WBC (Bld) 89.4 % High 47-[address] [facility] Nucleated red blood cell per centageOrdered By: Bishnu Bacon on 04-25-2025 Nucleated RBC/100 WBC (Bld) [Ratio] 0 % 0-[address] [facility] Platelet countOrdered By: John Bacon on 04-25-2025 Platelets (Bld) [#/Vol] 198 10*3/uL 150-[address] [facility] Potassium measurement (mass/ volume)Ordered By: Bishnu Bacon on 04-25-2025 Potassium (Unsp spec) [Mass/Vol] 4.5 mmol/L 3.3-5.[address] [facility] Prothrombin timeOrdered By: Bishnu Bacon on 04-25-2025 PT Coag (PPP) [Time] 13.4 s 11.7-14.9 [facility] RBC Auto (Bld) [#/Vol]Ordere d By: Bishnu Bacon on 04-25-2025 RBC (Bld) [#/Vol] 5.07 10*6/uL 4.6-6.[address] [facility] Serum creatinine measurement (mass/volume)Ordered By: Bishnu Bacon on 04-25-2025 Creatinine [Mass/Vol] 0.92 mg/dL 0.70-1.20 [facility] Serum glucose measurement (m ass/volume)Ordered By: Bishnu Bacon on 04-25-2025 Glucose [Mass/Vol] 160 mg/dL High 70-99 [facility] Serum or plasma calcium theodore urement (mass/volume)Ordered By: Bishnu Bacon on 04-25-2025 Calcium [Mass/Vol] 9.2 mg/dL 7.6-11.0 [facility] Serum or plasma urea nitroge n measurement (mass/volume)Ordered By: Bishnu Bacon on 04-25-2025 Urea nitrogen [Mass/Vol] 16 mg/dL 4-[address] [facility] Sodium levelOrdered By: Bishnu Bacon on 04-25-2025 Sodium [Moles/Vol] 136 mmol/L 133-145 [facility] Troponin T.cardiac [Mass/vol ume] in Serum or Plasma by High sensitivity methodOrdered By: Bishnu Bacon on 04-25-2025 Troponin T.cardiac High sensitivity method [Mass/Vol] < 6 ng/L <[address] [facility] White blood cell (WBC) count Ordered By: Bishnu Bacon on 04-25-2025 WBC (Bld) [#/Vol] 8.9 10*3/uL 4.4-11.0 [facility] 03-07-2025 [facility] Office Visit (WOUCA) ---- PHILOMENA BARKER ([id number]) 1965 M Date Time Provider Department 03/07/25 [...] left facial swelling, (+) left facial pain Ears/Nose/Mouth/Thr oat: (-) dental pain Respiratory: (-) dyspnea Gastrointestinal: [...] oral intake. - Prescription sent to [facility] Recording using [employer] software for draft documentation of the visit was discussed with the patient/authorized corporate representative; all questions welcomed and answered. Patient/authorized corporate representative agreed to proceed Differential Diagnoses - Sialoadenitis/parot iditis is more likely for the following reason(s): [...] and swelling x 2.5 days Primary Visit Diagnosis:Sialadeni tis [K11.20] Order(s):amoxicilli n-clavulanate potassium (AUGMENTIN) 875-125 mg per tabletTake 1 tablet by mouth every 12 hours for 7 days.Disp: 14 tabletRfl: 0 Prescriptions as of 03/07/2025 - amoxicillin-clavula estefanía potassium (AUGMENTIN) 875-125 mg per tablet Take [...] [facility]-15-2024 CNOV Office Visit (UROLWS) ---- PHILOMENA BARKER ([id number]) 1965 M Date Time Provider Department 09/15/24 11:00 AM PAIGE MILLER During your visit today, we recorded the following information about you: Temperature Pulse Respiration Blood pressure 97 degrees 72/minute 14/minute 158/98 Weight Height 83 kg 1.753 m Paige Miller PA-C 09/15/2024 8:48 PM Signed [facility] [...] Friends and Family: Twice a week Attends [employer] Services: Never Active Member of Clubs or [...] SKIN: NO VARICOSE VEINS, RASH, ABNORMAL ITCHING HEME/LYMPH/IMMUNE:N egative for prolonged bleeding, bruising easily or swollen [...] Result Value (more content not included)... Normal [facility] 09-10-2024 CNPN Telephone (UROLWS) ---- PHILOMENA BARKER ([id number]) 1965 M Date Time Provider Department 09/10/24 [...] Status:Closed by ZACH ROSARIO on 09/15/24 Normal [facility] No Panel Informationon 12-11 [facility] Emergency Department Summary on 06-04-2020 Emergency Department Summary [facility] Medical Records Department [address] [place] [address] Emergency Department Summary 06/04/20 MR#: [id number] Acct: [id number] Name: PHILOMENA BARKER Rep #: [id number] : 1965 55 From: Sammy Baptiste MD [...] Impression: Anxiety This note was generated with [employer] dictation software. It may contain incorrect words, spelling, and punctuation that were not noted in review of the chart prior to signing ED Disposition - Plan for ED Patient: Disposition: Home or Assisted Living Instructions: ED Panic Attack Prescriptions: hydrOXYzine pamoate capsule [Vistaril] 25 mg PO TID PRN PRN #20 cap PRN Reason: Anxiety Transmission Status: Pending to [facility] Referrals: Lilia Montero MD [Primary Care Provider] - What to do if you have Problems For any increased pain, shortness of breath, bleeding, nausea or vomiting, chest pain, or any unexpected problems, contact your Primary Care Provider. Call [facility] ([phone]) or report to the closest Emergency Room. Call 911 if necessary. 06/04/20 05 Date Sammy Baptiste MD Cosigner Signature (If Indicated): Date ___ CC: Dr. Lilia Montero MD [facility] Vital Signs Date Time Vital Sign Value Performing Clinician Facility 04-25-2025 20:02-0400 Diastolic blood pressure 85 mm[Hg] Dr. Lilia Montero MD Work Phone: [phone] [place] [address] 04-25-2025 20:02-0400 Heart rate 81 /min Dr. Lilia Montero MD Work Phone: [phone] [place] [address] 04-25-2025 20:02-0400 Respiratory rate 18 /min Dr. Lilia Montero MD Work Phone: [phone] [place] [address] 04-25-2025 20:02-0400 SaO2% (BldA) [Mass fraction] 99 % Dr. Lilia Montero MD Work Phone: [phone](770)[phone] [place] [address] 04-25-2025 20:02-0400 Systolic blood pressure 152 mm[Hg] Dr. Lilia Montero MD Work Phone: 9(735)[phone] [place] [address] 04-25-2025 19:59-0400 Body temperature 98.1 [degF] Dr. Lilia Montero MD Work Phone: 3(892)[phone] [place] [address] 04-25-2025 18:41-0400 Body mass index (BMI) [Ratio] 24.5 kg/m2 Dr. Lilia Montero MD Work Phone: [phone])[phone] [place] [address] 04-25-2025 18:41-0400 Body weight 77.[address] Lilia Montero MD Work Phone: [facility] 04-25-2025 18:39-0400 Body height 177.[address] Lilia Montero MD Work Phone: [facility] 03-07-2025 12:33-0400 Body mass index (BMI) [Ratio] 25.91 kg/m2 Krislyn Aberegg PA Work Phone: [facility] 03-07-2025 12:33-0400 Body temperature 96.91 [degF] Krislyn Aberegg PA Work Phone: [facility] 03-07-2025 12:33-0400 Body weight 79.6 kg Krislyn Aberegg PA Work Phone: [facility] 03-07-2025 12:33-0400 Diastolic blood pressure 74 mm[Hg] Krislyn Aberegg PA Work Phone: [facility] 03-07-2025 12:33-0400 Heart rate 76 /min Krislyn Aberegg PA Work Phone: [facility] 03-07-2025 12:33-0400 Respiratory rate 16 /min Krislyn Aberegg PA Work Phone: [facility] 03-07-2025 12:33-0400 SaO2% (BldA) [Mass fraction] 97 % Krislyn Aberegg PA Work Phone: [facility] 03-07-2025 12:33-0400 Systolic blood pressure 126 mm[Hg] Krislyn Aberegg PA Work Phone: [facility] 09-15-2024 10:49-0500 Body height 175.3 cm Paige Miller PA-C Work Phone: [facility] 09-15-2024 10:49-0500 Body mass index (BMI) [Ratio] 27.02 kg/m2 Paige Miller PA-C Work Phone: [facility] 09-15-2024 10:49-0500 Body temperature 97 [degF] Paige Miller PA-C Work Phone: [facility] 09-15-2024 10:49-0500 Body weight 83.01 kg Paige Miller PA-C Work Phone: [facility] 09-15-2024 10:49-0500 Diastolic blood pressure 98 mm[Hg] Paige Miller PA-C Work Phone: [facility] Comment on above: Advised patient to update PCP on blood p ressure- states he has been on and off of blood pressure medications. Paige notified of blood pressure. 09-15-2024 10:49-0500 Heart rate 72 /min Paige Miller PA-C Work Phone: [facility] 09-15-2024 10:49-0500 Respiratory rate 14 /min Paige Miller PA-C Work Phone: [facility] 09-15-2024 10:49-0500 SaO2% (BldA) [Mass fraction] 99 % Paige Miller PA-C Work Phone: [facility] 09-15-2024 10:49-0500 Systolic blood pressure 158 mm[Hg] Paige Miller PA-C Work Phone: [facility] Comment on above: Advised patient to update PCP on blood p ressure- states he has been on and off of blood pressure medications. Paige notified of blood pressure. 06-14-2023 08:03-0400 Body weight 89 kg Tio Marquez DRAMATIC AGENT.AUTO LOCATOR Work Phone: [facility] 06-14-2023 08:03-0400 Diastolic blood pressure 93 mm[Hg] Tio Jimmy DRAMATIC AGENT.AUTO LOCATOR Work Phone: [facility] 06-14-2023 08:03-0400 Heart rate 67 /min Tio Marquez DRAMATIC AGENT.AUTO LOCATOR Work Phone: [facility] 06-14-2023 08:03-0400 Respiratory rate 16 /min Tio Jimmy DRAMATIC AGENT.AUTO LOCATOR Work Phone: [facility] 06-14-2023 08:03-0400 SaO2% (BldA) [Mass fraction] 98 % Tio Jimmy DRAMATIC AGENT.AUTO LOCATOR Work Phone: [facility] 06-14-2023 08:03-0400 Systolic blood pressure 132 mm[Hg] Tio Jimmy DRAMATIC AGENT.AUTO LOCATOR Work Phone: [facility] 05-17-2023 08:09-0400 Diastolic blood pressure 124 mm[Hg] Tio Jimmy DRAMATIC AGENT.AUTO LOCATOR Work Phone: [facility] 05-17-2023 08:09-0400 Systolic blood pressure 170 mm[Hg] Tio Jimmy DRAMATIC AGENT.AUTO LOCATOR Work Phone: [facility] 05-17-2023 07:41-0400 Body weight 88.81 kg Tio Jimmy DRAMATIC AGENT.AUTO LOCATOR Work Phone: [facility] 05-17-2023 07:41-0400 Heart rate 83 /min Tio Jimmy DRAMATIC AGENT.AUTO LOCATOR Work Phone: [facility] 05-17-2023 07:41-0400 Respiratory rate 16 /min Tio Jimmy DRAMATIC AGENT.AUTO LOCATOR Work Phone: [facility] 05-17-2023 07:41-0400 SaO2% (BldA) [Mass fraction] 98 % Tio Jimmy DRAMATIC AGENT.AUTO LOCATOR Work Phone: [facility] 03-28-2022 08:31-0400 Body weight 84.37 kg Kanchan Alonsohof DRAMATIC AGENT.AUTO LOCATOR Work Phone: [facility] 03-28-2022 08:31-0400 Diastolic blood pressure 80 mm[Hg] Kanchan Tannhof DRAMATIC AGENT.AUTO LOCATOR Work Phone: [facility] 03-28-2022 08:31-0400 Heart rate 85 /min Kanchan Tannhof DRAMATIC AGENT.AUTO LOCATOR Work Phone: [facility] 03-28-2022 08:31-0400 Respiratory rate 16 /min Kanchan Tannhof DRAMATIC AGENT.AUTO LOCATOR Work Phone: [facility] 03-28-2022 08:31-0400 SaO2% (BldA) [Mass fraction] 96 % Kanchan Alonsohof DRAMATIC AGENT.AUTO LOCATOR Work Phone: [facility] 03-28-2022 08:31-0400 Systolic blood pressure 110 mm[Hg] Kanchan Gavinhof DRAMATIC AGENT.AUTO LOCATOR Work Phone: [facility] 03-22-2022 09:04-0400 Body temperature 98.01 [degF] Zoila Bogner PA-C Work Phone: [facility] 03-22-2022 09:04-0400 Body weight 85.91 kg Zoila Bogner PA-C Work Phone: [facility] 03-22-2022 09:04-0400 Diastolic blood pressure 78 mm[Hg] Zoila Bogner PA-C Work Phone: [facility] 03-22-2022 09:04-0400 Heart rate 81 /min Zoila Bogner PA-C Work Phone: [facility] 03-22-2022 09:04-0400 Respiratory rate 16 /min Zoila Bogner PA-C Work Phone: [facility] 03-22-2022 09:04-0400 SaO2% (BldA) [Mass fraction] 97 % Zoila Bogner PA-C Work Phone: [facility] 03-22-2022 09:04-0400 Systolic blood pressure 126 mm[Hg] Zoila Bogner PA-C Work Phone: [facility] 03-18-2022 09:33-0400 Body temperature 97.59 [degF] Juani Brice DRAMATIC AGENT.AUTO LOCATOR Work Phone: [facility] 03-18-2022 09:33-0400 Body weight 85.73 kg Juani Brice DRAMATIC AGENT.AUTO LOCATOR Work Phone: [facility] 03-18-2022 09:33-0400 Diastolic blood pressure 98 mm[Hg] Juani Brice DRAMATIC AGENT.AUTO LOCATOR Work Phone: [facility] 03-18-2022 09:33-0400 Heart rate 86 /min Juani Brice DRAMATIC AGENT.AUTO LOCATOR Work Phone: [facility] 03-18-2022 09:33-0400 Respiratory rate 16 /min Juani Brice DRAMATIC AGENT.AUTO LOCATOR Work Phone: [facility] 03-18-2022 09:33-0400 SaO2% (BldA) [Mass fraction] 98 % Juani Brice DRAMATIC AGENT.AUTO LOCATOR Work Phone: [facility] 03-18-2022 09:33-0400 Systolic blood pressure 142 mm[Hg] Juani Brice DRAMATIC AGENT.AUTO LOCATOR Work Phone: [facility] 12-04-2021 13:20-0400 Body height 176.5 cm Lilia Montero MD Work Phone: [facility] 12-04-2021 13:20-0400 Body weight 84.82 kg Lilia Montero MD Work Phone: [facility] 12-04-2021 13:20-0400 Diastolic blood pressure 84 mm[Hg] Lilia Montero MD Work Phone: [facility] 12-04-2021 13:20-0400 Heart rate 60 /min Lilia Montero MD Work Phone: [facility] 12-04-2021 13:20-0400 Respiratory rate 12 /min Lilia Montero MD Work Phone: [facility] 12-04-2021 13:20-0400 Systolic blood pressure 136 mm[Hg] Lilia Montero MD Work Phone: [facility] Encounters Encounter Date Encounter Type Care Provider Facility Start: 04-25-2025 Evaluation and management of inpatient Dr. John Gottlieb DO -Progressive Care Unit Work Phone: Start: 03-07-2025 End: 03-07-2025 Patient encounter procedure Lyn GARCES Work Phone: [facility] Comment on above: Sialadenitis (Primar y Dx) Start: 03-07-2025 End: 03-07-2025 ambulatory LILIA MONTERO Facility:[facility] Start: 09-15-2024 End: 09-17-2024 ambulatory Tio Marquez APRN.AUTO LOCATOR Work Phone: [facility] Comment on above: High blood pressure medication Start: 09-15-2024 End: 09-15-2024 Patient encounter procedure Paige Miller PA-C Work Phone: Urology Comment on above: Cyst of scrotum (Lety ney Dx) Start: 09-10-2024 End: 09-15-2024 Telephone encounter Paige Miller PA-C Work Phone: Urology Comment on above: Appointment Start: 12-30-2023 ambulatory Tio MEYER RN.AUTO LOCATOR Work Phone: [facility] Comment on above: Prozac replacement Start: 06-14-2023 End: 06-14-2023 Office outpatient visit 25 minutes Tio Marquez APRN.AUTO LOCATOR Work Phone: [facility] Comment on above: Anxiety and depressi on (Primary Dx); Essential hypertension, benign; Elevated bilirubin Start: 05-17-2023 End: 05-17-2023 Office outpatient visit 25 minutes Tio Marquez APRN.AUTO LOCATOR Work Phone: [facility] Comment on above: Anxiety and depressi on (Primary Dx); Essential hypertension, benign; Screening for prostate cancer Start: 05-15-2023 ambulatory Lilia swann MD Work Phone: [facility] Comment on above: Switching back to pr evious medication Start: 06-13-2022 ambulatory Lilia swann MD Work Phone: [facility] Comment on above: Prescription Start: 03-28-2022 End: 03-28-2022 Patient encounter procedure Kanchan Vásquez APRN.AUTO LOCATOR Work Phone: [facility] [place] Comment on above: Hoarseness of voice (Primary Dx); Laryngitis Start: 03-22-2022 End: 03-22-2022 Office outpatient visit 15 minutes Zoila Hicks PA-C Work Phone: [facility] Comment on above: Hoarseness of voice (Primary Dx) Start: 03-20-2022 ambulatory Lilia swann MD Work Phone: [facility] Start: 03-20-2022 Patient encounter procedure Lilia Montero MD Work Phone: [facility] Comment on above: Appointment Start: 03-18-2022 End: 03-18-2022 Patient encounter procedure Juani Brice APRN.AUTO LOCATOR Work Phone: [facility] Comment on above: URI, acute (Primary Dx) Start: 12-11-2021 Telephone encounter Lilia yost MD Work Phone: [facility] [place] Comment on above: Results Start: 12-11-2021 End: 12-11-2021 Subsequent hospital visit by physician [facility] Work Phone: Radiology Comment on above: Mass of right testic le [N50.89] Start: 12-04-2021 End: 12-04-2021 Patient encounter procedure Lilia Montero MD Work Phone: [facility] [place] Comment on above: Wellness examination (Primary Dx); Mass of right testicle Start: 12-04-2021 End: 12-04-2021 Patient encounter status Lilia Montero MD Work Phone: [facility] Procedures Date Procedure Procedure Detail Performing Clinician Start: 04-25-[address] Lilia Montero MD Work Phone: Start: 04-25-2025 CT angiography of he ad and neck Dr. Lilia Montero MD Work Phone: Start: 04-25-2025 CT of head without contrast Dr. Lilia Montero MD Work Phone: Start: 12-11-2021 Dup-scan artl teressa abdl/pel/scrot&/rpr orgn com Lilia Montero MD Work Phone: Start: 12-11-2021 Us scrotum & contents M arherlinda Montero MD Work Phone: Start: 12-04-2021 Adult [...] RSV Vaccine (1 - 1-dose 75+ series) [facility] Start: 06-10-2028 Prostate Cancer Screening Discussion Prostate Cancer Screening Discussion [facility] Start: 06-10-2028 Prostate specific antigen measurement Prostate Cancer Screening Discussion [facility] Start: 06-10-2026 Diabetes Screening Diabetes Screenin g [facility] Start: 03-01-2026 Lipid 1996 panel - S maggy or Plasma Lipid Screening [facility] Start: 03-01-2026 Lipid panel Lipid Screening [facility] Start: 03-01-2026 LIPID SCREEN LIPID SCREEN [facility] Start: 09-27-2025 Colonoscopy COLONOSCOPY [facility] Start: 09-27-2025 COLORECTAL CANCER SCREENING COLORECTAL CANCER SCREENING [facility] Start: 09-27-2025 Screening for malign ant neoplasm of colon [facility] Start: 04-26-2025 Influenza vaccination Influenza Vacc ine (#1) [facility] Start: 04-25-2025 [facility] Start: 04-25-2025 MRI of brain without contrast Brain without Contrast [facility] Start: 04-25-2025 Admission procedure [facility] Start: 04-25-2025 Hospital admission, emergency, from emergency room, medical nature [facility] Start: 04-25-2025 Thyroid stimulating hormone measurement [facility] Start: 04-25-2025 [facility] Start: 12-15-2024 End: 12-15-2024 Patient encounter procedure 12/15/2024 4:00 PM EDT Office Visit Urology [address] [place] [address] Paige Miller PA-C [address] [place] [address] 3 MO OV Urology Comment on above: 3 MO OV Start: 09-29-2024 End: 09-29-2024 Patient encounter procedure 09/29/2024 11:30 AM EST Appointment Radiology [address] [place] [address] Cyst of scrotum [L72.9] Radiology Comment on above: Cyst of scrotum [L72 .9] Start: 09-21-2024 End: 09-21-2024 Patient encounter procedure 09/21/2024 6:40 PM EST Office Visit Family [facility] [place] [address] [place], [place] [id number] Lilia Montero MD [address] [place] [address] wants to restart BP medication; has not been seen since 06/14/23 Family [facility] Comment on above: wants to restart BP medication; has not been seen since 06/14/23 Start: 09-15-2024 End: 10-15-2025 US.doppler Scrotum and testicle US SCROTUM AND CONTENTS Radiology Routine Cyst of scrotum Expected: 09/15/2024 (Approximate), Expires: 10/15/2025 [facility] Work Phone: Comment on above: Expected: 09/15/2024 (Approximate), Expires: 10/15/2025 Start: 06-14-2024 Annual PCP Team Baby Registry Sales Consultant martha Disease Visit Annual PCP Team Chronic Disease Visit [facility] Start: 05-17-2024 Annual PCP Team Baby Registry Sales Consultant martha Disease Visit Annual PCP Team Chronic Disease Visit [facility] Start: 04-26-2024 Covid-19 Vaccine ( season) Covid-19 Vaccine ( season) [facility] Start: 04-26-2024 Influenza vaccination C [facility] Start: 03-01-2024 DIABETES SCREEN DIABETES SCREEN [facility] Start: 03-01-2024 Diabetes Screening Diabetes Screenin g [facility] Start: 12-14-2023 End: 03-14-2024 Comprehensive metabolic 2000 panel - Serum or Plasma COMP METABOLIC PANEL Lab Routine Essential hypertension, benign Expected: 12/14/2023 (Approximate), Expires: 03/14/2024 [facility] Work Phone: Comment on above: Expected: 12/14/2023 (Approximate), Expires: 03/14/2024 Start: 08-26-2023 Behavioral Health Screening Behavioral Health Screening [facility] Start: 05-17-2023 End: 07-17-2023 Comprehensive metabolic 2000 panel - Serum or Plasma COMP METABOLIC PANEL Lab Routine Essential hypertension, benign Expected: 05/17/2023, Expires: 07/17/2023 [facility] Work Phone: Comment on above: Expected: 05/17/2023 , Expires: 07/17/2023 Start: 05-17-2023 End: 07-17-2023 PSA/PROSTSPECAG SCRN PSA/PROSTSPECAG SCRN Lab Routine Screening for prostate cancer Expected: 05/17/2023, Expires: 07/17/2023 [facility] Work Phone: Comment on above: Expected: 05/17/2023 , Expires: 07/17/2023 Start: 04-26-2023 Covid-19 Vaccine () Covid-19 Vaccine () [facility] Start: 04-26-2023 Influenza vaccination Influenza Vacc ine (#1) [facility] Start: 03-28-2023 ANNUAL PCP TEAM SKOOG MACHINE OPERATOR MARTHA DISEASE VISIT ANNUAL PCP TEAM CHRONIC DISEASE VISIT [facility] Start: 03-22-2023 BP CONTROLLED (<130/80) BP CONTROLLE D (<130/80) [facility] Start: 12-04-2022 Adult depression screening assessment DEPRESSION SCREENING [facility] Start: 12-04-2022 ANNUAL PCP TEAM SKOOG MACHINE OPERATOR MARTHA DISEASE VISIT ANNUAL PCP TEAM CHRONIC DISEASE VISIT [facility] Start: 12-04-2022 HEPATITIS C SCREENING HEPATITIS C [facility] Comment on above: Postponed from 01/16 (Declined at this time) Start: 12-04-2022 HIV SCREENING HIV SCREENING [facility] Comment on above: Postponed from 01/16 (Declined at this time) Start: 08-26-2022 [facility] Start: 04-26-2022 Influenza vaccination [facility] Start: 08-26-2021 DEPRESSION ASSESSMENT DEPRESSION ASS ESSMENT [facility] Start: 06-07-2021 COVID-19 VACCINE (3 - Booster for Moderna series) COVID-19 VACCINE (3 - Booster for Moderna series) [facility] Start: 03-02-2021 COVID-19 VACCINE (3 - Booster for Moderna series) COVID-19 VACCINE (3 - Booster for Moderna series) [facility] Start: 03-02-2021 Covid-19 Vaccine (3 - Moderna series) Covid-19 Vaccine (3 - Moderna series) [facility] Start: 01-17-2020 PROSTATE CANCER SCREENING DISCUSSION PROSTATE CANCER SCREENING DISCUSSION [facility] Start: 01-28-2019 Urine microalbumin profile [facility] Start: 2015 Pneumococcal Vaccine : 50+ (1 of 1 - PCV) Pneumococcal Vaccine: 50+ (1 of 1 - PCV) [facility] Start: 2015 SHINGRIX VACCINE (1 of 2) SHINGRIX VACCINE (1 of 2) [facility] Start: 2010 COLOGUARD (FIT-DNA) COLOGUARD (FIT-D NA) [facility] Start: [address] COLONOGRAPHY [facility] Start: 2010 FECAL OCCULT BLOOD FECAL OCCULT BLOO D [facility] Start: 2010 Screening for malign ant neoplasm of colon [facility] Start: 2010 SIGMOIDOSCOPY SIGMOIDOSCOPY [facility] Start: 01-17-1984 Hepatitis B Vaccine (1 of 3 - 19+ 3-dose series) Hepatitis B Vaccine (1 of 3 - 19+ 3-dose series) [facility] Start: 1983 Anxiety Screening Anxiety Screening [facility] Start: 1983 BP CONTROLLED (<130/80) BP CONTROLLE D (<130/80) [facility] Start: 1983 Depression Screening Depression Scre neda [facility] Start: 1983 Hepatitis C Screening Hepatitis C [facility] Start: 1983 Hepatitis C screening Hepatitis C [facility] Start: 1983 HIV Screening HIV Screening [facility] Start: 1983 HIV screening HIV Screening [facility] Start: 1965 HEPATITIS B (1 of 3 - 3-dose series) HEPATITIS B (1 of 3 - 3-dose series) [facility] Start: 1965 Hepatitis B Vaccine (1 of 3 - 3-dose series) Hepatitis B Vaccine (1 of 3 - 3-dose series) [facility] Amphetamines [Presen ce] in Urine by Screen method >1000 ng/mL [facility] Benzodiazepine measurement, urine [facility] Cocaine measurement, urine [facility] Ethanol [Mass/volume ] in Serum or Plasma [facility] fentaNYL [Presence] in Urine by Screen method [facility] Hemoglobin A1c/Hemoglobin.total in Blood [facility] Methadone measuremen t, urine [facility] Phencyclidine [Prese nce] in Urine [facility] Troponin T.cardiac [Mass/volume] in Serum or Plasma by High sensitivity method [facility] Troponin T.cardiac [Mass/volume] in Serum or Plasma by High sensitivity method [facility] Urine cannabinoid measurement [facility] Urine opiate measurement [facility] End: 01-03-2023 Us scrotum & contents US SCROTUM AND CONTENTS Radiology Routine Mass of right testicle 1 Occurrences starting 12/04/2021 until 01/03/2023 [facility] Work Phone: Comment on above: 1 Occurrences starti ng 12/04/2021 until 01/03/2023 End: 10-15-2025 US.doppler Unspecified body region US DOPPLER COMPLETE Radiology Routine Cyst of scrotum 1 Occurrences starting 09/15/2024 until 10/15/2025 [facility] Comment on above: 1 Occurrences starti ng 09/15/2024 until 10/15/2025 [facility] Immunizations Immunization Date Immunization Notes Care Provider Andre liriano 06-26-2017 influenza, injectabl e, quadrivalent, contains preservative Liila Montero MD Work Phone: [facility] 06-26-2017 influenza virus vaccine, unspecified formulation Lilia Montero MD Work Phone: [facility] 06-14-2011 influenza virus vaccine, unspecified formulation Lilia Montero MD Work Phone: [facility] 01-28-2009 tetanus toxoid, redu meri diphtheria toxoid, and acellular pertussis vaccine, adsorbed Lilia Montero MD Work Phone: [facility] Payers Date Payer Category Payer Blue [employer] Blue [facility] BLUE ACCE SS PPO [id number] 2023 Unknown [id number] 2021 Unknown [facility] [id number] 2021-Present [id number] [id number] 2021 Unknown [id number] Private Health Insurance [id number] Unknown [id number] Social History Date Type Detail Facility Start: 12-18-2010 End: 04-25-2025 Tobacco smoking status NHIS Never smoked tobacco [facility] Start: 12-18-2010 End: 05-17-2023 Tobacco use and exposure Smokeless tobacco non-user [facility] Start: 12-04-2021 End: 09-15-2024 Alcohol intake Current drinker of alcohol (finding) [facility] Start: 11-27-2021 History SDOH Alcohol Frequency 3 [facility] Start: 11-27-2021 History SDOH Alcohol Std Drinks 1 [facility] Start: 09-27-2020 History SDOH Alcohol Comment 1-2 times a month [facility] Start: 11-27-2021 History SDOH Social Connections Phone 2 [facility] Start: 11-27-2021 History SDOH Physical Activity DPW 5 [facility] Start: 11-27-2021 History SDOH Physical Activity MPS 6 [facility] Start: 1965 Sex Assigned At Not on file [facility] Start: 11-24-2021 End: 03-28-2022 Exposure to SARS-CoV-2 (event) Not sure [facility] Start: 11-27-2021 End: 05-17-2023 History of Social function [facility] Start: 11-27-2021 End: 05-17-2023 Social connection and isolation panel [facility] Do you belong to any clubs or organizations such as anabaptist groups, unions, fraternal or athletic groups, or school groups? Yes [facility] Are you now , , , , never or living with a partner? [facility] How often to you hav e a drink containing alcohol? 2-4 times a month [facility] How many standard dr inks containing alcohol do you have on a typical day? 1 or 2 [facility] How often do you hav e 6 or more drinks on 1 occasion? Never [facility] How hard is it for y ou to pay for the very basics like food, housing, medical care, and heating Not hard at all [facility] Do you feel stress - tense, restless, nervous, or anxious, or unable to sleep at night because your mind is troubled all the time - these days [OSQ] Only a little [facility] (I/We) worried wheth er (my/our) food would run out before (I/we) got money to buy more. Never true [facility] In the past 12 month s, was there a time when you were not able to pay the mortgage or rent on time? No [facility] Start: 09-14-2020 Gender identity Identifies as male gender (finding) [facility] Start: 09-14-2020 Sexual orientation Heterosexual (finding) [facility] Start: 1965 Sex Assigned At Male [facility] Mental Status Date Assessment Result Facility 04-25-2025 Cognitive function Voice/Name [facility] Work Phone: Clinical Notes 12-04-2021 to 04-25-2025 Note Date & Type Note Facility 04-25-2025 Discharge summary [facility] 04-25-2025 Radiology Diagnostic study note [facility] Imaging Services [address] [place], [place] [address] STROKE CTA Head AND Neck W/Con MR#: [id number] Acct: [id number] Name: PHILOMENA BARKER Rep #: [id number] : 1965 M 60 From: Naila Zavala MD PCP: Dr. Lilia Montero MD Status: RE G ER Study:STROKE CTA Head AND Neck W/Con Date of Exam: 04/25/25 Exam# [id number] Ordering Dr: John Bacon MD PROCEDURE: STROKE CTA HEAD AND NECK W/CON 04/25/2025 REASON FOR EXAM: NEURO DEFICIT, ACUTE, STROKE SUSPECTED TECHNIQUE: Procedure Code: CTCTA.ST.HN Modality: CT Procedure: STROKE CTA HEAD AND NECK W/CON Multiplanar Sagittal and Coronal images were obtained. 3D post processing was performed CONTRAST: Isovue 370 VOLUME: 100 mL One or more dose reduction techniques were used (e.g., Automated exposure control, adjustment of the mA and/or kV according to patient size, use of iterative reconstruction technique). RADIATION DOSE SUMMARY: CTDlvol: 74 mGy DLP: 1579 mGycm COMPARISON: Head CT of the same day FINDINGS: Aortic Arch: No aneurysm. Left vertebral artery originates directly from the arch. Brachiocephalic and Subclavians: Unremarkable RIGHT Carotid: Right CCA: Minimal mural plaque at the carotid bulb. Right ICA: Minimal mural plaque proximally. Maximum stenosis (NASCET): Less than 15% % Right ECA: Unremarkable LEFT Carotid: Left CCA: Minimal mural plaque at the carotid bulb. Left ICA: Minimal mural plaque proximally. Maximum stenosis (NASCET): Less than 15 % Left ECA: Unremarkable Vertebrals: Right is dominant. Both are patent. RIGHT Vertebral: Unremarkable. LEFT Vertebral: Unremarkable. Anatomy: origin chief contract officer bilaterally. Aneurysm or avm: No intracranial aneurysms or large vascular malformations are identified. Anterior cerebral arteries: Unremarkable. Middle cerebral arteries: Unremarkable. Basilar artery: Unremarkable. Posterior cerebral arteries: origin bilaterally. Hypoplastic P1 segments bilaterally. Other major branches of the posterior circulation: Unremarkable. Major venous structures: Unremarkable. Other findings: Neck: No lymphadenopathy. Lungs: Lung apices are clear. Bones: Bones are unremarkable. CT/STROKE CTA Head AND Neck W/Con IMPRESSION: 1. No large vessel occlusion. 2. Minimal atherosclerosis of the carotid bulb and proximal internal carotid arteries with less than 15% stenosis. 3. No aneurysm. Reading Location: [facility] CC: Dr. Lilia Montero MD; Dr. Bishnu Bacon MD ~ [employer] Services Manager: Signed [facility] 04-25-2025 Radiology Diagnostic study note [facility] Imaging Services [address] [place], [place] [address] STROKE Brain/Head without Cont MR#: [id number] Acct: [id number] Name: PHILOMENA BARKER Rep #: [id number] : 1965 M 60 From: Naila Zavala MD PCP: Dr. Lilia Montero MD Status: RE G ER Study:STROKE Brain/Head without Cont Date of Exam: 04/25/25 Exam# [id number] Ordering Dr: John Bacon MD PROCEDURE: STROKE BRAIN/HEAD WITHOUT CONT 04/25/2025 REASON FOR EXAM: NEURO DEFICIT, ACUTE, STROKE SUSPECTED TECHNIQUE: Procedure Code: CTBR.ST Modality: CT Procedure: STROKE BRAIN/HEAD WITHOUT CONT Coronal and Sagittal reconstruction series were provided. One or more dose reduction techniques were used (e.g., Automated exposure control, adjustment of the mA and/or kV according to patient size, use of iterative reconstruction technique. RADIATION DOSE SUMMARY: CTDlvol: 80 mGy DLP: 1579 mGycm COMPARISON: None FINDINGS: Brain: There is no evidence of hemorrhage, acute ischemia or mass. No extra-axial fluid collection, midline shift or mass effect. CSF Spaces: Normal Sinuses/Mastoids: Clear Bones: No fracture Incidental note is made of some ossification of the anterior midline falx. CT/STROKE Brain/Head without Cont IMPRESSION: No acute intracranial abnormality. The findings and impression of this report were called directly to the ordering physician, Dr. Bacon at 7:39 p.m, eastern standard time. Reading Location: [id number] CC: Dr. Lilia Montero MD; Dr. Bishnu Bacon MD ~ [employer] Services Manager: Signed [facility] 04-25-2025 Discharge summary Note Date/Time April 25, 2025 8:26pm [facility] Medical Records Department [address] [place] [address] Emergency Department Summary 04/25/25 MR#: [id number] Acct: [id number] Name: PHILOMENA BARKER Rep #:[id number] : 1965 60 From: Bishnu Bacon MD PCP: Dr. Lilia Montero MD Status:AD M IN Location: [place] [address] HPI History of Present Illness Chief Complaint: Dizziness Detail of Chief Complaint: Dizziness 3 days ago, resolved and onset 0800 this morning Informant: patient Onset/Context/Timing Onset: Today and Days Context: Sudden Onset Timing: Continuous (Since this morning) and Intermittent (3 days ago) Quality and Location: Positive for Difficulty with Ambulation Onset: 799April 25 Current Severity: Mild Maximum Severity: Severe Worsened by: Nothing specific Relieved by: Nothing Associated Symptoms Associated Symptoms: Positive for Nausea and Vomiting; Negative for Headache or Chest Pain Narrative Narrative: Patient is a 60-year-old male. He has history hypertension. He was weaned off of his blood pressure medicine. Patient denies headache. He denies double vision blurred vision loss of vision. He feels things are moving and his balance is off. He had an episode 3 days ago that resolved. The episode that started today first noted at 8 AM. Prior similar symptoms: No Recent Illness/[facility]ospital[facility]: [facility] Medical History HTN (hypertension) Home Medications ?Medication ?Instructions ?Recorded ?Last Taken ?Type multivitamin with minerals 1 ea PO DAILY 06/04/20 Unkn own History Allergy/AdvReac Type Severity Reaction Status Date / Time No Known Allergies Allergy Verified 04/25/25 18:39 Family History adopted Surgical History no surgical history Social History (Updated 04/25/25 @ 20:[address] Bishnu Bacon MD) household members: spouse Smoking Status: Never smoker details: SOCIAL substance use type: does not use ROS ROS ED Constitutional Constitutional ED: Denies chills, fever(s) or subjective Eyes Eyes: Denies blurry vision, change in vision or diplopia ENT ENT ED: Denies ear pain, rhinorrhea or sore throat Cardiovascular Cardiovascular: Denies chest pain or palpitations Respiratory/Chest Respiratory/Chest: Denies cough, dyspnea or dyspnea on exertion Gastrointestinal Gastrointestinal: Denies nausea or vomiting Genitourinary Genitourinary ED: Denies dysuria, hematuria or urinary frequency Musculoskeletal Musculoskeletal: Denies arthralgias or myalgias Integumentary Denies rash Neurologic Neurologic: Denies headache(s), paresthesias or weakness Psychiatric Psychiatric: Denies anxiety or depression Hematologic/Lymphatic Hematologic/Lymphatic: Denies easy bleeding or easy bruising EXAM Physical Exam Const Vital Signs: 04/25/25 18:39 04/25/25 19:05 04/25/25 19:35 Temperature 98.2 F Temperature Source Oral Pulse Rate 90 81 Respiratory Rate 16 20 H Blood Pressure 134/80 H 172/85 H Blood Pressure Mean 98 114 Pulse Ox 98 99 Oxygen Delivery Method Room Air Room Air Room Air 04/25/25 19:59 04/25/25 20:02 Temperature 98.1 F Temperature Source Pulse Rate 73 81 Respiratory Rate 18 18 Blood Pressure 148/98 H 152/85 H Blood Pressure Mean 114 107 Pulse Ox 99 99 Oxygen Delivery Method Room Air Positive well nourished and well developed Constitutional Narrative: Blood pressure is slightly elevated. Patient has history of hypertension. After discussion with He discontinued his blood pressure meds because of change in diet, exercise and weight. Most recent blood pressure was 1 month agoand it was 125/84. General Appearance ED: well developed HEENT Reports TM's clear and moist mucous membranes atraumatic Nose: other Other Details: Normal Tympanic Membrane ED: Yes TM's clear bilateral Eyes PERRL and EOMs intact bilaterally Eyes Narrative: Central gaze nystagmus. General Eye ED: Negative for pale conjunctiva or scleral icterus Neck no lymphadenopathy, supple and no JVD Neck Narrative: No carotid bruits noted. Resp normal respiratory effort and clear to auscultation bilaterally Cardio no murmurs Rate: regular rate Rhythm: regular rhythm Heart Sounds: S1 normal GI normal to inspection, nondistended, normoactive bowel sounds, soft to palpation,non-tender, non-distended and no masses Back/Spine Cervical Spine: Negative for cervical spine tenderness Extremity normal to inspection General Extremety ED: Negative for deformity, edema or tenderness General Extremity: Negative for deformity or edema Neuro oriented x3, CN's II-XII intact bilaterally and no sensory deficits noted Neuro Narrative: Patient has some mild dysmetria on the right. Romberg test was positive bilaterally worse on the right. Patient has ataxic gait. [place] Coma Scale: document GCS findings Spontaneous Obeys Commands Oriented 15 Sensorium / Orientation: alert Speech: speech normal Gait (Neuro): Negative for normal gait Motor Exam: strength 5/5 throughout Psych mental status grossly normal Skin no wounds General Skin Exam: Negative for jaundice Lesions: no lesions Rashes: no rashes MDM MDM MDM Narrative Medical decision making narrative: Differential diagnosis is central versus peripheral vertigo. Suspect this is central. After discussion with the stroke neurologist patient to be admitted for MRI and stroke workup. He recommended aspirin and loading with Plavix. Lab Data Attestation: I reviewed the patient's lab results. Lab results narrative: CBC is unremarkable. Basic metabolic panel is unremarkable. Coags are unremarkable. First troponin is normal. Glucose was elevated 160 with a normalCO2 anion gap. Labs: Laboratory Results - last 24 hr 04/25/25 19:13 WBC 8.9 RBC 5.07 Hgb 16.2 Hct 43.6 MCV 86.0 MCH 32.0 MCHC 37.2 H RDW Std Deviation 35.1 RDW Coeff of Amanda 11.3 L Plt Count 198 MPV 9.3 Immature Gran % (Auto) 0.300 Neut % (Auto) 89.4 H Lymph % (Auto) 8.2 L [place] % (Auto) 1.9 Eos % (Auto) 0.0 Baso % (Auto) 0.2 Absolute Neuts (auto) 7.9 H Absolute Lymphs (auto) 0.73 L Nucleated RBC % 0 PT 13.4 INR 1.0 APTT 21.1 L Sodium 136 Potassium 4.5 Chloride 102 Carbon Dioxide 21.3 Anion Gap 13 BUN 16 Creatinine 0.92 Estim Creat Clear Calc 88.16 Est GFR (MDRD) Non-Af 95 BUN/Creatinine Ratio 17.4 Glucose 160 H Calcium 9.2 Troponin T High Sens < 6 Radiography Diagnostic Testing: Clinical Impression(s) from Imaging Studies Brain CT 04/25/25 19:05 IMPRESSION: No acute intracranial abnormality. The findings and impression of this report were called directly to the ordering physician, Dr. Bacon at 7:39 p.m, eastern standard time. Reading Location: [id number] Head/Neck CTA 04/25/25 19:06 IMPRESSION: 1. No large vessel occlusion. 2. Minimal atherosclerosis of the carotid bulb and proximal internal carotid arteries with less than 15% stenosis. 3. No aneurysm. Reading Location: [facility] EKG Initial EKG: Attestation: I personally reviewed and interpreted this EKG as follows: Interpretation: Sinus Rhythm (Normal sinus rhythm rate of 74. The EKG is normal. AK interval is 130 ms per cures duration 84 ms. QT duration 400 ms [place] is normal) Management Discussion w/another healthcare provider: Hospitalist, Speck Dyer (Spoke with stroke neurologist at [facility] Dr. Davis. He recommended aspirin and loading dose of Plavix and stroke workup. One of his associates/partners will see patient inconsultation tomorrow) and Radiologist (Received call from radiologist regardingCT of the head without contrast. No acute findings. 5 minutes prior to receiving the call from radiologist the films were reviewed with the stroke neurologist at [facility]. Both the CT and CTA of the head and neck were unremarkable according to him.) Discharge Plan Dx/Rx/DC Orders Clinical Impression: Vertigo, Ataxia, Horizontal nystagmus, Hypertension Disposition Disposition: Acute Care Hospital [facility] NIHSS NIHSS 1a. Level of Consciousness: 0 - Alert; keenly responsive 1b. LOC Questions: 0 - Answers BOTH questions correctly 1c. LOC Commands: 0 - Performs BOTH tasks correctly 2. Best Gaze: 0 - Normal 3. Visual: 0 - No visual loss 4. Facial Palsy: 0 - Normal symmetrical movements 5a. Left Arm: 0 - No drift; arm holds 90 (or 45) degrees for full 10 seconds 5b. Right Arm: 0 - No drift; arm holds 90 (or 45) degrees for full 10 seconds 6a. Left Le - No drift; leg holds 30-degree position for full 5 seconds 6b. Right Le - No drift; leg holds 30-degree position for full 5 seconds 7. Limb Ataxia: 1 - Present in 1 limb 8. Sensory: 0 - Normal; no sensory loss 9. Best Language: 0 - No aphasia; normal 10. Dysarthria: 0 - Normal 11. Extinction and Inattention: 0 - No abnormality Total: 1 Stroke Questions Stroke Team Activated: Yes Reviewed Inclusion/Exclusion criteria: No (Patient outside of the window.) IV Thrombolytic Administered: No What to do if you have Problems For any increased pain, shortness of breath, bleeding, nausea or vomiting, chestpain, or any unexpected problems, contact your Primary Care Provider. Call [facility] ([phone]) or report to the closest Emergency Room. Call 911 if necessary. 04/25/252025 <Electronically signed by Bishnu Bacon MD> Cosigner Signature (if applicable): CC: Dr. Lilia Montero MD ~ Signed [facility] Work Phone: 1(227) 705-730108-31-2025 Evaluation note* Diagnosis Onset Date Resolution Status Admit Date Ataxia acute April 25 025 8:18pm Horizontal nystagmus acute Augu st 2024 8:18pm Vertigo acute April 25 025 8:18pm Hypertension chronic April 25, 2025 8:18pm [facility] Work Phone: 1(772) 871-764307-13-2025 NoteHNO ID: [id number] Author: LYN CABAN PA Service: ? Author Type: Physician Court Collections Officer Type: Progress Notes Filed: 03/07/2025 12:43 Note Text: URGENT CARE [facility] Philomena Barker is a 60 year old [...] oral intake. - Prescription sent to [facility] Recording using [employer] Monitor software for draft documentation of the visit was discussed with the patient/authorized corporate representative; all questions welcomed and answered. Patient/authorized corporate representative agreed to proceed Differential Diagnoses - Sialoadenitis/parotiditis is more likely for the following reason(s): suggested by HANDP - Torsten's angina is less likely for the following reason(s): HANDP not suggestive Disposition The patient was discharged. [facility] History of Present illness Narrative* Lyn Caban PA - 03/07/2025 12:41 PM EDT Images from the original note were not [...] kg (175 lb 7.8 oz) SpO2 97% BMI25.91 kg/m Physical Exam Vitals and nursing note [...] of mouth swelling. No trismus. No dental tenderness.Mild tenderness and swelling noted just inferior to the left parotid gland and in the submandibularregion just underneath the jaw. No redness. Cardiovascular: [...] oral intake. - Prescription sent to [facility] Recording using Campaign Monitor software for draft documentation of the visit was discussed with the patient/authorized corporate representative; all questions welcomed and answered. Patient/authorized corporate representative agreed to proceed Differential Diagnoses - Sialoadenitis/parotiditis is more likely for the following reason(s): suggested by H&P - Torsten's angina is less likely for the following reason(s): H&P not suggestive Disposition The patient was discharged. Procedures documented [facility] Telephone encounter Note * Telephone Encounter - Tio Marquez APRN.CNP - 09/17/2024 10:32 AM EST Rx sent for 30 days The following approved medication requests have been transmitted electronically. Requested Prescriptions Signed Prescriptions Disp Refills lisinopril (ZESTRIL) 10 mg tablet 30 tablet 0 Sig: Take 1 tablet by mouth once daily. Tio Marquez APRN.CNP [facility]01-23-[facility]25 Miscellaneous Notes* Telephone Encounter - Tio Marquez APRN.CNP - 09/17/2024 10:32 AM EST Rx sent for 30 days The following approved medication requests have been transmitted electronically. Requested Prescriptions Signed Prescriptions Disp Refills lisinopril (ZESTRIL) 10 mg tablet 30 tablet 0 Sig: Take 1 tablet by mouth once daily. Tio Marquez APRN.AUTO LOCATOR * Telephone Encounter - Debbie Caballero MA - 09/17/2024 10:23 AM EST Pt unable to make appt as scheduled next week in the evening. Are you willing to send in #30 day supply to get pt through until being seen. Pt last appt 05/2023. Offered to assist pt in making appt. Please advise. Debbie Caballero MA * Telephone Encounter - Nathanael Richardson LPN - 09/16/2024 11:55 AM EST Appt scheduled. Pt notified via [facility] message. Nathanael Richardson LPN * Telephone Encounter - Nathanael Richardson LPN - 09/16/2024 8:19 AM EST See pt message. SARAH 06/14/23 and no upcoming appt. Pt advised needed an appt. documented in this encounterFostoria City Hospital01-23-2025 Telephone encounter Note * Telephone Encounter - Debbie Caballero MA - 09/17/2024 10:23 AM EST Pt unable to make appt as scheduled next week in the evening. Are you willing to send in #30 day supply to get pt through until being seen. Pt last appt 05/2023. Offered to assist pt in making appt. Please advise. Debbie Caballero MA [facility]01-[facility] Telephone encounter Note* Telephone Encounter - Nathanael Richardson LPN - 09/16/2024 11:55 AM EST Appt scheduled. Pt notified via message. Nathanael Richardson LPN [facility]01-[facility] Telephone encounter Note* Telephone Encounter - Nathanael Richardson LPN - 09/16/2024 8:19 AM EST See pt message. SARAH 06/14/23 and no upcoming appt. Pt advised needed an appt. [facility]01-21-[facility] Instructions* Patient Instructions* Paige Miller PA-C - 09/15/2024 11:41 AM EST > Scrotum US - orders placed > Follow up for discussion of abnormal results requiring procedure documented in this encounterFostoria City Hospital01-21-2025 NoteHNO ID: [id number] Author: PAIGE MILLER PA-C Service: ? Author Type: Physician Court Collections Officer Type: Progress Notes Filed: 09/15/2024 20:48 Note Text: [facility] NEW PATIENT CLINIC NOTE [...] Friends and Family: Twice a week Attends Jain Services: Never Active Member of Clubs or [...] hydrocele rather than an (more content not included)...[facility] History of Present illness Narrative* Paige Miller PA-C - 09/15/2024 11:30 AM EST Images from the original note were not included. [facility] NEW PATIENT CLINIC NOTE [...] Friends and Family: Twice a week Attends Jain Services: Never Active Member of Clubs or [...] C (97 F), temperature source Temporal, resp. rate14, height 175.3 cm (5' 9), weight 83 [...] DUTCH Hewitt, JOSE, HECTOR documented in this encounterFostoria City Hospital01-21-2025 Telephone encounter Note * Telephone Encounter - Zach Rosario LPN - 09/15/2024 10:52 AM EST Patient present for appointment. Has not been seen for testicular concern since US done 12/11/2021.Zach Rosario LPN [facility]01-21-2025 Miscellaneous Notes* Telephone Encounter - Zach Rosario LPN - 09/15/2024 10:52 AM EST Patient present for appointment. Has not been seen for testicular concern since US done 12/11/2021.Zach Rosario LPN * Telephone Encounter - Zach Rosario LPN - 09/10/2024 11:00 AM EST Called patient. No answer- left message. Patient scheduled for 09/15/2024 in urology for testiculargrowth. Has he been seen elsewhere and if so where? Zach Rosario LPN documented in this encounterFostoria City Hospital2025 Telephone encounter Note * Telephone Encounter - Zach Rosario LPN - 09/10/2024 11:00 AM EST Called patient. No answer- left message. Patient scheduled for 09/15/2024 in urology for testiculargrowth. Has he been seen elsewhere and if so where? Zach Rosario LPN [facility]10[facility] History of Present illness Narrative* Tio Marquez APRN.AUTO LOCATOR - 06/14/2023 8:20 AM EDT Chief Complaint Patient presents with: 4 week f/u HPI Philomena Barker is a 58 year old male who presents here today for Chronic Medical Conditions. followup for anxiety, depression, HTN. Patient is here for 4-week follow-up. Last month we did start him on Wellbutrin. This was in addition to his Prozac. He had complaints of low moods, low motivation, feeling tired. Some feelings of fogginess., Some ongoing anxiety related to work. At this time, he states his sleep is okay. Sleep nowis not interrupted. The fogginess has subsided. Denies any side effects. Denies any SI/HI. Patient also was restarted on lisinopril. History of hypertension but had stopped this medication. He is without chest pain, syncope, shortness of breath, headaches, dizziness. Reviewed recent blood work with patient. PSA is normal. Had elevation in bilirubin. Stating that victor m had previously elevated blood bilirubin. Reviewing past [...] needed. This note was partly generated using [employer] voice recognition dictation and may contain some misspelled or inaccurate words missed on review. documented in this encounterFostoria City Hospital10-20-2023 Instructions* Patient Instructions* Tio Marquez APRN.CNP - 06/14/2023 8:15 AM EDT Continue current medications Repeat labs in 6 months Tio Marquez APRN.CNP documented in this encounterFostoria City Hospital09-22-2023 History of Present illness Narrative* Tio Marquez APRN.CNP - 05/17/2023 7:41 AM EDT Chief Complaint Patient presents with: Medication Follow-up [...] morning when he first wakes. Rumination is present.Improves as he moves through the day. Previously [...] ICD10: Z12.5 - PSA/PROSTSPECAG YUMIKON Tio Marquez APRN.CNP RTO in 1 months, sooner if needed. This note was partly generated using [employer] voice recognition dictation and may contain some misspelled or inaccurate words missed on review. documented in this encounterFostoria City Hospital08-03-2022 Instructions* Patient Instructions* Kanchan Vásquez APRN.CNP - 03/28/2022 8:44 AM [...] numbing agent in them. documented in this encounterFostoria City Hospital08-03-2022 History of Present illness Narrative* Kanchan Vásquez APRN.CNP - 03/28/2022 8:40 AM EDT This is a 57 year old male [...] at home. - May continue to use [id number] cold and cough medication as needed for [...] APRN.MARIKA This note was partially generated using [employer] voice recognition system. Note was reviewed for accuracy. There may be minor misspellings or grammar miscues with [employer] voice recognition. documented in this encounterFostoria City Hospital07-28-2022 History of Present illness Narrative* Zoila Hicks PA-C - 03/22/2022 9:11 AM EDT 03/22/2022 Patient presents with: Cough: Pt taking [...] no acute distress, well-hydrated, well nourished. + hoarsenessnoted. EYES PERRLA, conjunctiva and sclera normal. EARS [...] plan. HECTOR Terry PA-C documented in this encounterFostoria City Hospital07-24-2022 Instructions* Patient Instructions* Juani Brice APRN.[facility] - 03/18/2022 9:50 AM EDT RESPIRATORY INFECTION [...] antibiotics. They are spread by coughs, sneezes, anddirect contact, especially [id number]. A respiratory tract infection usually clears up [...] as water, fruit juice, tea, clear soups, andcarbonated beverages. CONTACT YOUR DOCTOR IF : 1. [...] 102 F (39 C). documented in this encounterFostoria City Hospital07-24-2022 History of Present illness Narrative* Juani Brice APRN.CNP - 03/18/2022 9:44 AM EDT This note was created using [employer]. Subjective Philomena Barker is a 57 year [...] history is provided by the patient. No line crew supervisor was used. URI He complains of cough. There is no chest tightness, difficulty breathing, frequent throat clearing,hemoptysis, hoarse voice, shortness of breath, sputum production or wheezing. This is a new problem. The current episode started 1 to 4 weeks ago. The problem occurs constantly. The problem has been gradually worsening. The cough is non-productive. Associated symptoms include malaise/fatigue, nasalcongestion and a sore throat. Pertinent negatives include [...] Negative for ear pain, hoarse voice, postnasal drip,rhinorrhea, sinus pressure, sinus pain, sneezing and trouble [...] and suction prn and given that symptoms areworsening will cover with Augmentin No xray available at time of presentation RX Prednisone - Follow up in 3-5 days if symptoms persist or sooner if worsening of symptoms - Discussed testing for COVID with patient, although its been 11 days and treatment would not change related to that Juani Brice APRN.MARIKA documented in this encounterFostoria City Hospital04-19-2022 Miscellaneous Notes* Telephone Encounter - Rika Yao Ma - 12/12/2021 3:11 PM EDT Pt notified. Transferred to PSR to set up urology appt. Rika Yao Ma * Telephone Encounter - Rika Yao Ma - 12/11/2021 3:19 PM EDT Message left for pt to call back for results. Rika Yao MA * Telephone Encounter - Lilia Montero MD - 12/11/2021 3:07 PM EDT Please notify patient that his testicular ultrasound does show a cystic structure in his right scrotum. Due to the size of it I would recommend getting a Urology evaluation to see if they would recommend treatment. Lilia Montero MD documented in this encounterFostoria City Hospital04-18-2022 History of Present illness Narrative* Juani Mauro RDMS - 12/11/2021 7:45 AM EDT Radiology Service Progress Note PATIENT NAME: Philomena Barker DATE OF SERVICE: December 11, 2021 TIME: 8:26 AM PATIENT IDENTITY VERIFICATION COMPLETED USING TWO (2) IDENTIFIERS: Name and Date of confirmedby patient verbally. FALL SCREENING: Has the patient [...] 11, 2021 8:26 AM documented in this encounterFostoria City Hospital04-11-2022 History of Present illness Narrative* Lilia Montero MD - 12/04/2021 1:20 PM EDT Chief Complaint Patient presents with: Wellness HPI [...] cycling, running and playing golf. Rides with [employer] and [employer] groups. Depression/BEATRIZ: No longer taking Effexor. Reports [...] CONTENTS Lilia Montero MD [facility]* Diagnosis Wellness examination- Primary Mass of right testicle documented in this encounter [facility] note* Diagnosis Mass of right testicle documented in this encounter [facility] note* Diagnosis Hydrocele, encysted- Primary Encysted hydrocele documented in this encounter [facility] note* Diagnosis URI, acute- Primary Acute upper respiratory infections of unspecified site documented in this encounter [facility] note* Diagnosis Hoarseness of voice- Primary Dysphonia documented in this encounter [facility] note* Diagnosis Hoarseness of voice- Primary Dysphonia Laryngitis Acute laryngitis, without mention of obstruction documented in this encounter [facility] note* Diagnosis Anxiety and depression- Primary Dysthymic disorder Essential hypertension, benign Screening for prostate cancer Special screening for malignant neoplasm of prostate documented in this encounter [facility] note* Diagnosis Anxiety and depression- Primary Dysthymic disorder Essential hypertension, benign Elevated bilirubin Jaundice, unspecified, not of documented in this encounter [facility] note* Diagnosis Cyst of scrotum- Primary Sebaceous cyst documented in this encounter [facility] note* Diagnosis Essential hypertension, benign documented in this encounter [facility] note* Diagnosis Sialadenitis- Primary Sialoadenitis documented in this encounter [facility] for referral (narrative)* Diagnostic Procedure Only (Routine) - Authorized Specialty Diagnoses / Procedures Referred By Charlie t Referred To Contact US IMAGING Diagnoses Mass of right testicle Procedures US SCROTUM AND CONTENTS US SCROTUM & CONTENTS Lilia Montero MD [address] [place] [address] Us Imaging Referral ID Status Reason Start Date Expiration Date Visits Requested Visits Authorized [id number] Authorized Auto-Generat ed Referral 12/04/2021 01/03/2023 1 1 [facility] for referral (narrative)* Diagnostic Procedure Only (Routine) - Closed Specialty Diagnoses / Procedures Referred By Charlie phillips Referred To Contact US IMAGING Diagnoses Mass of right testicle Procedures US SCROTUM AND CONTENTS US SCROTUM & CONTENTS Lilia Montero MD [address] [place] [address] Us Imaging Referral ID Status Reason Start Date Expiration Date V isits Requested Visits Authorized [id number] Closed Auto-Generate d Referral 12/04/2021 01/03/2023 1 1 [facility] for referral (narrative)* Diagnostic Procedure Only (Routine) - Authorized Specialty Diagnoses / Procedures Referred By Charlie t Referred To Contact US IMAGING Diagnoses Cyst of scrotum Procedures US DOPPLER COMPLETE DUP-SCAN ARTL TERESSA ABDL/PEL/SCROT&/RPR ORGN [facility] Paige Miller PA-C [address] [id number] Us Imaging [place] [address] Referral ID Status Reason Start Date Expiration Date Visits Requested Visits Authorized [id number] Authorized Auto-Generat ed Referral 09/15/2024 10/15/2025 1 1 * Diagnostic Procedure Only (Routine) - Authorized Specialty Diagnoses / Procedures [facility] Referred To Contact US IMAGING Diagnoses Cyst of scrotum Procedures US SCROTUM AND CONTENTS US SCROTUM & CONTENTS Paige Miller PA-C [address] [place] [address] [facility] [address] Referral ID Status Reason Start Date Expiration Date Visits Requested Visits Authorized [id number] Authorized Auto-Generat ed Referral 09/15/2024 10/15/2025 1 1 [facility]ative)No reason for referral information availableWGreene Memorial Hospital Work Phone: Summary Purpose Family History No Family History Records FoundNo Family History Records Found Advance Directives Documents on File Type Date Recorded 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 No April 25, 2025 6:50pm Reason for Referral Specialty Diagnoses / Procedures Referred By Contkhushboo t Referred To Contact Urology Diagnoses Hydrocele, encysted Procedures CONSULT TO UROLOGY OFFICE/OUTPATIENT [facility] 60-74 MINUTES Lilia Montero MD [address] [place] [address] Referral ID Status Reason Start Date Expiration Date Visits Requested Visits Authorized [id number] Authorized PCP Requested Referral 12/11/2021 12/11/2022 1 1 Specialty Diagnoses / Procedures Referred By Charlie t Referred To Contact Ent - Otolaryngology Diagnoses Hoarseness of voice Procedures CONSULT TO ENT OFFICE/OUTPATIENT [facility] 60-74 MINUTES Kanchan Vásquez APRN.CNP [address] [place] [address] Referral ID Status Reason Start Date Expiration Date Visits Requested Visits Authorized [id number] Authorized PCP Requested Referral 03/28/2022 03/28/2023 1 1 Chief Complaint and Reason for Visit Chief Complaint Admit Date VERTIGO STROKELIKE SYMPTOMS April 25, 2025 8:18pm Reason for Visit Admit Date Ataxia April 25, 2025 8: 18pm Horizontal nystagmus April 25, 2025 8 :18pm Vertigo April 25, 2025 8: 18pm Hypertension April 25, 2025 8: 18pm Additional Source Comments (unrecognized sect ion and content) No Status Records FoundNo Status Records Found INFORMATION SOURCE (unrecogn ized section and content) DATE CREATED AUTHOR 06/07/2020 [facility] DATE CREATED AUTHOR AUTHOR'S ORGANIZ ATION 03/10/2025 [facility] Source Comments (unrecognize d section and content) In the event this informatio n is protected by the Federal Confidentiality of Alcohol and Drug Abuse Patient Records regulations: The Federal rules restrict any use of the information to criminally investigate or prosecute any alcohol or drug abuse patient.[facility] HospitalIn the event this information is protected by the Federal Confidentiality of Alcohol and Drug Abuse Patient Records regulations: The Federal rules restrict any use of the information to criminally investigate or prosecute any alcohol or drug abuse patient.[facility] HospitalIn the event this information is protected by the Federal Confidentiality of Alcohol and Drug Abuse Patient Records regulations: The Federal rules restrict any use of the information to criminally investigate or prosecute any alcohol or drug abuse patient.[facility] HospitalIn the event this information is protected by the Federal Confidentiality of Alcohol and Drug Abuse Patient Records regulations: The Federal rules restrict any use of the information to criminally investigate or prosecute any alcohol or drug abuse patient.[facility] HospitalIn the event this information is protected by the Federal Confidentiality of Alcohol and Drug Abuse Patient Records regulations: The Federal rules restrict any use of the information to criminally investigate or prosecute any alcohol or drug abuse patient.[facility] HospitalIn the event this information is protected by the Federal Confidentiality of Alcohol and Drug Abuse Patient Records regulations: The Federal rules restrict any use of the information to criminally investigate or prosecute any alcohol or drug abuse patient.[facility] HospitalIn the event this information is protected by the Federal Confidentiality of Alcohol and Drug Abuse Patient Records regulations: The Federal rules restrict any use of the information to criminally investigate or prosecute any alcohol or drug abuse patient.[facility] HospitalIn the event this information is protected by the Federal Confidentiality of Alcohol and Drug Abuse Patient Records regulations: The Federal rules restrict any use of the information to criminally investigate or prosecute any alcohol or drug abuse patient.[facility] HospitalIn the event this information is protected by the Federal Confidentiality of Alcohol and Drug Abuse Patient Records regulations: The Federal rules restrict any use of the information to criminally investigate or prosecute any alcohol or drug abuse patient.[facility] HospitalIn the event this information is protected by the Federal Confidentiality of Alcohol and Drug Abuse Patient Records regulations: The Federal rules restrict any use of the information to criminally investigate or prosecute any alcohol or drug abuse patient.[facility] the event this information is protected by the Federal Confidentiality of Alcohol and Drug Abuse Patient Records regulations: The Federal rules restrict any use of the information to criminally investigate or prosecute any alcohol or drug abuse patient.[facility] the event this information is protected by the Federal Confidentiality of Alcohol and Drug Abuse Patient Records regulations: The Federal rules restrict any use of the information to criminally investigate or prosecute any alcohol or drug abuse patient.[facility] the event this information is protected by the Federal Confidentiality of Alcohol and Drug Abuse Patient Records regulations: The Federal rules restrict any use of the information to criminally investigate or prosecute any alcohol or drug abuse patient.[facility] the event this information is protected by the Federal Confidentiality of Alcohol and Drug Abuse Patient Records regulations: The Federal rules restrict any use of the information to criminally investigate or prosecute any alcohol or drug abuse patient.[facility] the event this information is protected by the Federal Confidentiality of Alcohol and Drug Abuse Patient Records regulations: The Federal rules restrict any use of the information to criminally investigate or prosecute any alcohol or drug abuse patient.[facility] the event this information is protected by the Federal Confidentiality of Alcohol and Drug Abuse Patient Records regulations: The Federal rules restrict any use of the information to criminally investigate or prosecute any alcohol or drug abuse patient.[facility] Reason for Visit (unrecogniz ed section and content) Reason Comments Wellness Reason Comments Radiology US Specialty Diagnoses / Procedures Referred By Charlie phillips Referred To Contact US IMAGING Diagnoses Mass of right testicle Procedures US SCROTUM AND CONTENTS US SCROTUM & CONTENTS Lilia Montero MD [address] [place] [address] Us Imaging Referral ID Status Reason Start Date Expiration Date V isits Requested Visits Authorized [id number] Closed Auto-Generate d Referral 12/04/2021 01/03/2023 1 [...] Care Teams (unrecognized sec tion and content) Autistic Teacher Relationship Specialty Start Date End Date Lilia Montero MD [address] [place] [address] PCP - General Family Practice 01/30/11 Autistic Teacher Relationship Specialty Start Date End Date Lilia Montero MD [address] [place] [address] PCP - General Family Practice 01/30/11 Autistic Teacher Relationship Specialty Start Date End Date Lilia Montero MD [address] [place] [address] PCP - General Family Practice 01/30/11 Autistic Teacher Relationship Specialty Start Date End Date Lilia Montero MD [address] [place] [address] PCP - General Family Practice 01/30/11 Autistic Teacher Relationship Specialty Start Date End Date Lilia Montero MD [address] [place] [address] PCP - General Family Practice 01/30/11 Autistic Teacher Relationship Specialty Start Date End Date Lilia Montero MD [address] [place] [address] PCP - General Family Practice 01/30/11 Autistic Teacher Relationship Specialty Start Date End Date Lilia Montero MD [address] [place] [address] PCP - General Family Practice 01/30/11 Autistic Teacher Relationship Specialty Start Date End Date Lilia Montero MD [address] [place] [address] PCP - General Family Medicine 01/30/11 Autistic Teacher Relationship Specialty Start Date End Date Lilia Montero MD [address] [place] [address] PCP - General Family Medicine 01/30/11 Autistic Teacher Relationship Specialty Start Date End Date Lilia Montero MD [address] [place] [address] PCP - General Family Medicine 01/30/11 Autistic Teacher Relationship Specialty Start Date End Date Lilia Montero MD [address] [place] [address] PCP - General Family Medicine 01/30/11 Autistic Teacher Relationship Specialty Start Date End Date Lilia Montero MD [address] [place] [address] PCP - General Family Medicine 01/30/11 Autistic Teacher Relationship Specialty Start Date End Date Lilia Montero MD [address] [place] [address] PCP - General Family Medicine 01/30/11 Kanchan Vásquez, DRAMATIC AGENT.AUTO LOCATOR [address] [place] [address] [facility] 08/02/24 Tio Marquez, DRAMATIC AGENT.AUTO LOCATOR [address] [place] [address] [facility] 08/11/24 Autistic Teacher Relationship Specialty Start Date End Date Lilia Montero MD [address] [place] [address] PCP - General Family Medicine 01/30/11 Kanchan Vásquez, DRAMATIC AGENT.AUTO LOCATOR [address] [place] [address] [facility] 08/02/24 Tio Marquez DRAMATIC AGENT.AUTO LOCATOR [address] [place] [address] [facility] 08/11/24 Autistic Teacher Relationship Specialty Start Date End Date Lilia Montero MD [address] [place], [place] [address] PCP - General Family Medicine 01/30/11 Kanchan Vásquez APRN.AUTO LOCATOR [address] [place], [place] [address] [facility] 08/02/24 Tio Marquez APRN.AUTO LOCATOR [address] [place], [place] [address] [facility] Autistic Teacher Relationship Specialty Start Date End Date Lilia Montero MD [address] [place], [place] [address] PCP - General Family Medicine 01/30/11 Tio Marquez, DRAMATIC AGENT.AUTO LOCATOR [address] [place], [place] [address] [facility] 08/11/24 Team Status: Active Member Role/Relationship Status Dates Dr. Lilia Montero MD Primary Care Provider Active Team Status: Active Member Role/Relationship Status Dates Dr. Lilia Montero MD Primary Care Provider Active Start: April 25, 2025 Dr. Bishnu Bacon MD Emergency Provider Active Sta rt: April 25, 2025 Dr. John Gottlieb DO Admit Provider Active Start: April 25, 2025 Dr. John Gottlieb DO Attending Provider Active Start: April 25, 2025 Goals (unrecognized section and content) Goals may be documented in a n alternate section FOR RECORDS PERTAINING TO PATIENTS WHO ARE [...] BE BASED ON THE PRIMARY CLINICAL RECORDS. [facility] provides no warranty or guarantee of the accuracy or completeness of information in this document.
--- OUTSIDE RECORDS SUMMARY | 2025-04-26 01:44 | XMS RPT_ITS | CCD ---
Author Organization [facility] Care Team Providers Care Rn Call Center Name Role Phone Lilia Montero MD Primary Care Provider Lilia Montero MD Primary Care Provider Tannhof TELEVISION INSTALLER HELPER.EARLY HEAD START TEACHERKanchan Unavailable Jimmy TELEVISION INSTALLER HELPERTio WILSON Unavailable [phone] PAIGE MILLER Attending Unavailable LILIA MONTERO Primary Care Unavailable LILIA MONTERO Primary Care Unavailable LYN CABAN Attending Unavailable Dr. Lilia Montero MD Primary Care Provider Dr. Bishnu Bacon MD Emergency Provider Dr. John Gottlieb DO Admit Provider Unavail able Dr. John Gottlieb DO Attending Provider Unav ailable Allergies Allergy Classification Reported Allergen(s) Allergy Type Date of Onset Reaction(s) Facility (17 sources) Seasonal allergy; Translations: [SEASONAL ALLERGIES] Propensity to adverse reactions 01-30-2011 Intolerance [facility] Work Phone: Medications Current Medications [...] with food. Take 2 tablets by mo [facility] once daily for 5 days. Completed/Discontinued Medications [...] Comment on above: Take 1 tablet by [facility] once daily. FLUoxetine 20 mg oral capsule (13 sources) Serotonin Reuptake Inhibitor Start: 12-11-2021 End: 09-15-2024 take 1 capsule by mouth once daily FLUoxetine (PROZAC) 20 mg capsule Take 1 capsule by mouth once daily. 90 capsule 3 06/14/2023 09/15/2024 Discontinued Comment on above: Take 1 capsule by mo [facility] once daily. hydrOXYzine pamoate 25 mg oral [...] Comment on above: Take 1 capsule by [facility] once daily. Take one pill daily for [...] (Unsp spec) [#/Vol] 0.73 10*3/uL Low 0.83-4.51 [facility] Absolute neutrophil countOrd ered By: Bishnu Bacon on 04-25-2025 Neutrophils (Bld) [#/Vol] 7.9 10*3/uL High 2.0-7.7 [facility] Activated partial thrombopla stin time (aPTT) in platelet poor plasma by coagulation aOrdered By: Bishnu Bacon on 04-25-2025 aPTT Coag (PPP) [Time] 21.1 s Low 24.1-36.2 [facility] Anion gap in Serum or Plasma Ordered By: Bishnu Bacon on 04-25-2025 Anion gap [Moles/Vol] 13 mmol/L 5-15 [facility] Automated lymphocyte count a s percentage of total leukocytesOrdered By: Bishnugita Garciao on 04-25-2025 Lymphocytes/100 WBC Auto (Unsp spec) 8.2 % Low 19-41 [facility] BUN/creatinine ratioOrdered By: Bishnu Bacon on 04-25-2025 Urea nitrogen/Creatinine [Mass ratio] 17.4 mg/mg 10-20 [facility] Basophil percentageOrdered B y: Bishnu Bacon on 04-25-2025 Basophils/100 WBC (Bld) 0.2 % 0-1 [facility] Carbon dioxide, total [Moles /volume] in Central venous bloodOrdered By: Bishnugita Bacon on 04-25-2025 CO2 [Moles/Vol] 21.3 mmol/L 21.0-32.0 [facility] Chloride assayOrdered By: [facility] Bacon on 04-25-2025 Chloride [Moles/Vol] 102 mmol/L 98-108 [facility] Eosinophil percentageOrdered By: Bishnu Bacon on 04-25-2025 Eosinophils/100 WBC (Bld) 0.0 % 0-5 [facility] Erythrocyte distribution wid th ratioOrdered By: Bishnu Bacon on 04-25-2025 Erythrocyte distribution width (RBC) [Ratio] 11.3 % Low 11.6-14.6 [facility] Erythrocyte distribution wid th standard deviationOrdered By: Bishnu Bacon on 04-25-2025 Erythrocyte distribution width (RBC) [Ratio] 35.1 fl 35.1-43.9 [facility] Glomerular filtration rate ( GFR) estimation/1.73 sq m using serum, plasma, or whole bOrdered By: Bishnugita Bacon on 04-25-2025 GFR/1.73 sq M.predicted among non-blacks MDRD (S/P/Bld) [Vol rate/Area] 95 mL/min/{1.73_m2} >60 [facility] Comment on above: mL/min/1.73m2 CKD-EP I Creatinine Equation (2020) Hematocrit Auto (Bld) [Volum e fraction]Ordered By: Bishnugita Bacon on 04-25-2025 Hematocrit (Bld) [Volume fraction] 43.6 % 40-54 [facility] Hemoglobin measurementOrdere d By: Bishnu Bacon on 04-25-2025 Hemoglobin (Bld) [Mass/Vol] 16.2 g/dL 13.0-16.5 [facility] Immature granulocytes/100 WB C Auto (Bld)Ordered By: Bishnu Bacon on 04-25-2025 Immature granulocytes/100 WBC (Bld) 0.300 % 0.0-0.9 [facility] Comment on above: IG% - Immature Granu locytes (promyelocytes, myelocytes and metamyelocytes) > 1% indicates that a LEFT SHIFT is Present. International normalized rat io (INR) calculationOrdered By: Bishnu Bacon on 04-25-2025 INR Coag (Bld) [Relative time] 1.0 {INR} [facility] MCV (mean corpuscular volume ) determinationOrdered By: Bishnu Bacon on 04-25-2025 MCV (RBC) [Entitic vol] 86.0 fL 80-94 [facility] Mean corpuscular hemoglobin (MCH) determinationOrdered By: Bishnugita Bacon on 04-25-2025 MCH (RBC) [Entitic mass] 32.0 pg 27.0-32.0 [facility] Mean corpuscular hemoglobin concentration (MCHC) determinationOrdered By: Bishnu Bacon on 04-25-2025 MCHC (RBC) [Mass/Vol] 37.2 g/dL High 32-36 [facility] Mean platelet volume determi nationOrdered By: Bishnu Bacon on 04-25-2025 Platelet mean volume (Bld) [Entitic vol] 9.3 fL 6.2-12.0 [facility] Monocyte percentageOrdered B y: Bishnu Bacon on 04-25-2025 Monocytes/100 WBC (Bld) 1.9 % 0-10 [facility] Neutrophil percentageOrdered By: Bishnugita Bacon on 04-25-2025 Neutrophils/100 WBC (Bld) 89.4 % High 47-70 [facility] Nucleated red blood cell per centageOrdered By: Bishnu Bacon on 04-25-2025 Nucleated RBC/100 WBC (Bld) [Ratio] 0 % 0-5 [facility] Platelet countOrdered By: John Bacon on 04-25-2025 Platelets (Bld) [#/Vol] 198 10*3/uL 150-450 [facility] Potassium measurement (mass/ volume)Ordered By: Bishnu Bacon on 04-25-2025 Potassium (Unsp spec) [Mass/Vol] 4.5 mmol/L 3.3-5.1 [facility] Prothrombin timeOrdered By: Bishnu Bacon on 04-25-2025 PT Coag (PPP) [Time] 13.4 s 11.7-14.9 [facility] RBC Auto (Bld) [#/Vol]Ordere d By: Bishnu Bacon on 04-25-2025 RBC (Bld) [#/Vol] 5.07 10*6/uL 4.6-6.2 [facility] Serum creatinine measurement (mass/volume)Ordered By: Bishnu Bacon on 04-25-2025 Creatinine [Mass/Vol] 0.92 mg/dL 0.70-1.20 [facility] Serum glucose measurement (m ass/volume)Ordered By: Bishnu Bacon on 04-25-2025 Glucose [Mass/Vol] 160 mg/dL High 70-99 [facility] Serum or plasma calcium theodore urement (mass/volume)Ordered By: Bishnu Bacon on 04-25-2025 Calcium [Mass/Vol] 9.2 mg/dL 7.6-11.0 [facility] Serum or plasma urea nitroge n measurement (mass/volume)Ordered By: Bishnu Bacon on 04-25-2025 Urea nitrogen [Mass/Vol] 16 mg/dL 4-19 [facility] Sodium levelOrdered By: Bishnu Bacon on 04-25-2025 Sodium [Moles/Vol] 136 mmol/L 133-145 [facility] Troponin T.cardiac [Mass/vol ume] in Serum or Plasma by High sensitivity methodOrdered By: Bishnu aBcon on 04-25-2025 Troponin T.cardiac High sensitivity method [Mass/Vol] < 6 ng/L <22 [facility] White blood cell (WBC) count Ordered By: Bishnu Bacon on 04-25-2025 WBC (Bld) [#/Vol] 8.9 10*3/uL 4.4-11.0 [facility] 03-07-2025 [facility] Office Visit (WOUCA) ---- PHILOMENA BARKER ([id number]) 1965 M Date Time Provider Department 03/07/25 [...] oral intake. - Prescription sent to [facility] using TRELYS software for draft documentation of the visit was discussed with the patient/authorized help desk representative; all questions welcomed and answered. Patient/authorized help desk representative agreed to proceed Differential Diagnoses - [...] Encounter Status:Closed by LYN CABAN on 03/07/25 [facility] CNOVon 09-15-2024 CNOV Office Visit (UROLWS) ---- PHILOMENA BARKER ([id number]) 1965 M Date Time Provider Department 09/15/24 11:00 AM PAIGE MILLER During your visit today, we recorded the following information about you: Temperature Pulse Respiration Blood pressure 97 degrees 72/minute 14/minute 158/98 Weight Height 83 kg 1.753 m Paige Miller PA-C 09/15/2024 8:48 PM Signed [facility] [...] Friends and Family: Twice a week Attends Religion Services: Never Active Member of Clubs or [...] Result Value (more content not included)... Normal [facility] 09-10-2024 CNPN Telephone (UROLWS) ---- PHILOMENA BARKER ([id number]) 1965 M Date Time Provider Department 09/10/24 [...] Status:Closed by ZACH ROSARIO on 09/15/24 Normal [facility] No Panel Informationon 12-11 [facility] Emergency Department Summary on 06-04-2020 Emergency Department Summary [facility] Medical Records Department [address] [place] [address] Emergency Department Summary 06/04/20 MR#: [id number] Acct: [id number] Name: PHILOMENA BARKER Rep #: [id number] : 1965 55 From: Sammy Baptiste MD [...] Impression: Anxiety This note was generated with Delphi dictation software. It may contain incorrect words, spelling, and punctuation that were not noted in review of the chart prior to signing ED Disposition - Plan for ED Patient: Disposition: Home or Assisted Living Instructions: ED Panic Attack Prescriptions: hydrOXYzine pamoate capsule [Vistaril] 25 mg PO TID PRN PRN #20 cap PRN Reason: Anxiety Transmission Status: Pending to [facility] Referrals: Lilia Montero MD [Primary Care Provider] - What to do if you have Problems For any increased pain, shortness of breath, bleeding, nausea or vomiting, chest pain, or any unexpected problems, contact your Primary Care Provider. Call [facility] ([phone]) or report to the closest Emergency Room. Call 911 if necessary. 06/04/20 05 Date Sammy Baptiste MD Cosigner Signature (If Indicated): Date ___ CC: Dr. Lilia Montero MD [facility] Vital Signs Date Time Vital Sign Value Performing Clinician Facility 04-25-2025 20:02-0400 Diastolic blood pressure 85 mm[Hg] Dr. Lilia Montero MD Work Phone: [phone] [place] [address] 04-25-2025 20:02-0400 Heart rate 81 /min Dr. Lilia Montero MD Work Phone: 0([phone])[phone] [place] [address] 04-25-2025 20:02-0400 Respiratory rate 18 /min Dr. Lilia Montero MD Work Phone: [phone])[phone] [place] [address] 04-25-2025 20:02-0400 SaO2% (BldA) [Mass fraction] 99 % Dr. Lilia Montero MD Work Phone: 5(564)[phone] [place] [address] 04-25-2025 20:02-0400 Systolic blood pressure 152 mm[Hg] Dr. Lilia Montero MD Work Phone: 7(242)[phone] [place] [address] 04-25-2025 19:59-0400 Body temperature 98.1 [degF] Dr. Lilia Montero MD Work Phone: 4(240)[phone] [place] [address] 04-25-2025 18:41-0400 Body mass index (BMI) [Ratio] 24.5 kg/m2 Dr. Lilia Montero MD Work Phone: 6(614)[phone] [place] [address] 04-25-2025 18:41-0400 Body weight 77.[address] Lilia Montero MD Work Phone: [facility] 04-25-2025 18:39-0400 Body height 177.[address] Lilia Montero MD Work Phone: [facility] 03-07-2025 12:33-0400 Body mass index (BMI) [Ratio] 25.91 kg/m2 Krislyn Aberegg PA Work Phone: [facility] 03-07-2025 12:33-0400 Body temperature 96.91 [degF] Krislyn Aberegg PA Work Phone: [facility] 03-07-2025 12:33-0400 Body weight 79.6 kg Krislyn Aberegg PA Work Phone: [facility] 03-07-2025 12:33-0400 Diastolic blood pressure 74 mm[Hg] Krislyn Aberegg PA Work Phone: [facility] 03-07-2025 12:33-0400 Heart rate 76 /min Krislyn Aberegg PA Work Phone: [facility] 03-07-2025 12:33-0400 Respiratory rate 16 /min Krislyn Aberegg PA Work Phone: [facility] 03-07-2025 12:33-0400 SaO2% (BldA) [Mass fraction] 97 % Krislyn Aberegg PA Work Phone: [facility] 03-07-2025 12:33-0400 Systolic blood pressure 126 mm[Hg] Krislyn Aberegg PA Work Phone: [facility] 09-15-2024 10:49-0500 Body height 175.3 cm Paige Miller PA-C Work Phone: [facility] 09-15-2024 10:49-0500 Body mass index (BMI) [Ratio] 27.02 kg/m2 Paige Miller PA-C Work Phone: [facility] 09-15-2024 10:49-0500 Body temperature 97 [degF] Paige Miller PA-C Work Phone: [facility] 09-15-2024 10:49-0500 Body weight 83.01 kg Paige Miller PA-C Work Phone: [facility] 09-15-2024 10:49-0500 Diastolic blood pressure 98 mm[Hg] Paige Miller PA-C Work Phone: [facility] Comment on above: Advised patient to update PCP on blood p ressure- states he has been on and off of blood pressure medications. Paige notified of blood pressure. 09-15-2024 10:49-0500 Heart rate 72 /min Paige Miller PA-C Work Phone: [facility] 09-15-2024 10:49-0500 Respiratory rate 14 /min Paige Miller PA-C Work Phone: [facility] 09-15-2024 10:49-0500 SaO2% (BldA) [Mass fraction] 99 % Paige Miller PA-C Work Phone: [facility] 09-15-2024 10:49-0500 Systolic blood pressure 158 mm[Hg] Paige Miller PA-C Work Phone: [facility] Comment on above: Advised patient to update PCP on blood p ressure- states he has been on and off of blood pressure medications. Paige notified of blood pressure. 06-14-2023 08:03-0400 Body weight 89 kg Tio Marquez TELEVISION INSTALLER HELPER.EARLY HEAD START TEACHER Work Phone: [facility] 06-14-2023 08:03-0400 Diastolic blood pressure 93 mm[Hg] Tio Jimmy TELEVISION INSTALLER HELPER.EARLY HEAD START TEACHER Work Phone: [facility] 06-14-2023 08:03-0400 Heart rate 67 /min Tio Marquez TELEVISION INSTALLER HELPER.EARLY HEAD START TEACHER Work Phone: [facility] 06-14-2023 08:03-0400 Respiratory rate 16 /min Tio Jimmy TELEVISION INSTALLER HELPER.EARLY HEAD START TEACHER Work Phone: [facility] 06-14-2023 08:03-0400 SaO2% (BldA) [Mass fraction] 98 % Tio Jimmy TELEVISION INSTALLER HELPER.EARLY HEAD START TEACHER Work Phone: [facility] 06-14-2023 08:03-0400 Systolic blood pressure 132 mm[Hg] Tio Jimmy TELEVISION INSTALLER HELPER.EARLY HEAD START TEACHER Work Phone: [facility] 05-17-2023 08:09-0400 Diastolic blood pressure 124 mm[Hg] Tio Jimmy TELEVISION INSTALLER HELPER.EARLY HEAD START TEACHER Work Phone: [facility] 05-17-2023 08:09-0400 Systolic blood pressure 170 mm[Hg] Tio Jimmy TELEVISION INSTALLER HELPER.EARLY HEAD START TEACHER Work Phone: [facility] 05-17-2023 07:41-0400 Body weight 88.81 kg Tio Jimmy TELEVISION INSTALLER HELPER.EARLY HEAD START TEACHER Work Phone: [facility] 05-17-2023 07:41-0400 Heart rate 83 /min Tio Jimmy TELEVISION INSTALLER HELPER.EARLY HEAD START TEACHER Work Phone: [facility] 05-17-2023 07:41-0400 Respiratory rate 16 /min Tio Jimmy TELEVISION INSTALLER HELPER.EARLY HEAD START TEACHER Work Phone: [facility] 05-17-2023 07:41-0400 SaO2% (BldA) [Mass fraction] 98 % Tio Jimmy TELEVISION INSTALLER HELPER.EARLY HEAD START TEACHER Work Phone: [facility] 03-28-2022 08:31-0400 Body weight 84.37 kg Kanchan Alonsohof TELEVISION INSTALLER HELPER.EARLY HEAD START TEACHER Work Phone: [facility] 03-28-2022 08:31-0400 Diastolic blood pressure 80 mm[Hg] Kanchan Tannhof TELEVISION INSTALLER HELPER.EARLY HEAD START TEACHER Work Phone: [facility] 03-28-2022 08:31-0400 Heart rate 85 /min Kanchan Tannhof TELEVISION INSTALLER HELPER.EARLY HEAD START TEACHER Work Phone: [facility] 03-28-2022 08:31-0400 Respiratory rate 16 /min Kanchan Tannhof TELEVISION INSTALLER HELPER.EARLY HEAD START TEACHER Work Phone: [facility] 03-28-2022 08:31-0400 SaO2% (BldA) [Mass fraction] 96 % Kanchan Alonsohof TELEVISION INSTALLER HELPER.EARLY HEAD START TEACHER Work Phone: [facility] 03-28-2022 08:31-0400 Systolic blood pressure 110 mm[Hg] Kanchan Gavinhof TELEVISION INSTALLER HELPER.EARLY HEAD START TEACHER Work Phone: [facility] 03-22-2022 09:04-0400 Body temperature 98.01 [degF] Zoila Bogner PA-C Work Phone: [facility] 03-22-2022 09:04-0400 Body weight 85.91 kg Zoila Bogner PA-C Work Phone: [facility] 03-22-2022 09:04-0400 Diastolic blood pressure 78 mm[Hg] Zoila Bogner PA-C Work Phone: [facility] 03-22-2022 09:04-0400 Heart rate 81 /min Zoila Bogner PA-C Work Phone: [facility] 03-22-2022 09:04-0400 Respiratory rate 16 /min Zoila Bogner PA-C Work Phone: [facility] 03-22-2022 09:04-0400 SaO2% (BldA) [Mass fraction] 97 % Zoila Bogner PA-C Work Phone: [facility] 03-22-2022 09:04-0400 Systolic blood pressure 126 mm[Hg] Zoila Bogner PA-C Work Phone: [facility] 03-18-2022 09:33-0400 Body temperature 97.59 [degF] Juani Brice TELEVISION INSTALLER HELPER.EARLY HEAD START TEACHER Work Phone: [facility] 03-18-2022 09:33-0400 Body weight 85.73 kg Juani Brice TELEVISION INSTALLER HELPER.EARLY HEAD START TEACHER Work Phone: [facility] 03-18-2022 09:33-0400 Diastolic blood pressure 98 mm[Hg] Juani Brice TELEVISION INSTALLER HELPER.EARLY HEAD START TEACHER Work Phone: [facility] 03-18-2022 09:33-0400 Heart rate 86 /min Juani Brice TELEVISION INSTALLER HELPER.EARLY HEAD START TEACHER Work Phone: [facility] 03-18-2022 09:33-0400 Respiratory rate 16 /min Juani Brice TELEVISION INSTALLER HELPER.EARLY HEAD START TEACHER Work Phone: [facility] 03-18-2022 09:33-0400 SaO2% (BldA) [Mass fraction] 98 % Juani Brice TELEVISION INSTALLER HELPER.EARLY HEAD START TEACHER Work Phone: [facility] 03-18-2022 09:33-0400 Systolic blood pressure 142 mm[Hg] Juani Brice TELEVISION INSTALLER HELPER.EARLY HEAD START TEACHER Work Phone: [facility] 12-04-2021 13:20-0400 Body height 176.5 cm Lilia Montero MD Work Phone: [facility] 12-04-2021 13:20-0400 Body weight 84.82 kg Lilia Montero MD Work Phone: [facility] 12-04-2021 13:20-0400 Diastolic blood pressure 84 mm[Hg] Lilia Montero MD Work Phone: [facility] 12-04-2021 13:20-0400 Heart rate 60 /min Lilia Montero MD Work Phone: [facility] 12-04-2021 13:20-0400 Respiratory rate 12 /min Lilia Montero MD Work Phone: [facility] 12-04-2021 13:20-0400 Systolic blood pressure 136 mm[Hg] Lilia Montero MD Work Phone: [facility] Encounters Encounter Date Encounter Type Care Provider Facility Start: 04-25-2025 Evaluation and management of inpatient Dr. John Gottlieb DO -Progressive Care Unit Work Phone: Start: 03-07-2025 End: 03-07-2025 Patient encounter procedure Lyn GARCES Work Phone: [facility] Comment on above: Sialadenitis (Primar y Dx) Start: 03-07-2025 End: 03-07-2025 ambulatory LILIA MONTERO Facility:[facility] Start: 09-15-2024 End: 09-17-2024 ambulatory Tio Marquez APRN.EARLY HEAD START TEACHER Work Phone: [facility] Comment on above: High blood pressure medication Start: 09-15-2024 End: 09-15-2024 Patient encounter procedure Paige Miller PA-C Work Phone: Urology Comment on above: Cyst of scrotum (Lety ney Dx) Start: 09-10-2024 End: 09-15-2024 Telephone encounter Paige Miller PA-C Work Phone: Urology Comment on above: Appointment Start: 12-30-2023 ambulatory Tio MEYER RN.EARLY HEAD START TEACHER Work Phone: [facility] Comment on above: Prozac replacement Start: 06-14-2023 End: 06-14-2023 Office outpatient visit 25 minutes Tio Marquez APRN.EARLY HEAD START TEACHER Work Phone: [facility] Comment on above: Anxiety and depressi on (Primary Dx); Essential hypertension, benign; Elevated bilirubin Start: 05-17-2023 End: 05-17-2023 Office outpatient visit 25 minutes Tio Marquez APRN.EARLY HEAD START TEACHER Work Phone: [facility] Comment on above: Anxiety and depressi on (Primary Dx); Essential hypertension, benign; Screening for prostate cancer Start: 05-15-2023 ambulatory Lilia swann MD Work Phone: [facility] Comment on above: Switching back to pr evious medication Start: 06-13-2022 ambulatory Lilia swann MD Work Phone: [facility] Comment on above: Prescription Start: 03-28-2022 End: 03-28-2022 Patient encounter procedure Kanchan Vásquez APRN.EARLY HEAD START TEACHER Work Phone: [facility] [place] Comment on above: Hoarseness of voice (Primary Dx); Laryngitis Start: 03-22-2022 End: 03-22-2022 Office outpatient visit 15 minutes Zoila Hicks PA-C Work Phone: [facility] Comment on above: Hoarseness of voice (Primary Dx) Start: 03-20-2022 ambulatory Lilia swann MD Work Phone: [facility] Start: 03-20-2022 Patient encounter procedure Lilia Montero MD Work Phone: [facility] Comment on above: Appointment Start: 03-18-2022 End: 03-18-2022 Patient encounter procedure Juani Brice APRN.EARLY HEAD START TEACHER Work Phone: [facility] Comment on above: URI, acute (Primary Dx) Start: 12-11-2021 Telephone encounter Lilia yost MD Work Phone: [facility] [place] Comment on above: Results Start: 12-11-2021 End: 12-11-2021 Subsequent hospital visit by physician [facility] Work Phone: Radiology Comment on above: Mass of right testic le [N50.89] Start: 12-04-2021 End: 12-04-2021 Patient encounter procedure Lilia Montero MD Work Phone: [facility] [place] Comment on above: Wellness examination (Primary Dx); Mass of right testicle Start: 12-04-2021 End: 12-04-2021 Patient encounter status Lilia Montero MD Work Phone: [facility] Procedures Date Procedure Procedure Detail Performing Clinician Start: 04-25-[address] Lilia Montero MD Work Phone: Start: 04-25-2025 CT angiography of he ad and neck Dr. Lilia Montero MD Work Phone: Start: 04-25-2025 CT of head without contrast Dr. iLlia Montero MD Work Phone: Start: 12-11-2021 Dup-scan [...] RSV Vaccine (1 - 1-dose 75+ series) [facility] Start: 06-10-2028 Prostate Cancer Screening Discussion Prostate Cancer Screening Discussion [facility] Start: 06-10-2028 Prostate specific antigen measurement Prostate Cancer Screening Discussion [facility] Start: 06-10-2026 Diabetes Screening Diabetes Screenin g [facility] Start: 03-01-2026 Lipid 1996 panel - S maggy or Plasma Lipid Screening [facility] Start: 03-01-2026 Lipid panel Lipid Screening [facility] Start: 03-01-2026 LIPID SCREEN LIPID SCREEN [facility] Start: 09-27-2025 Colonoscopy COLONOSCOPY [facility] Start: 09-27-2025 COLORECTAL CANCER SCREENING COLORECTAL CANCER SCREENING [facility] Start: 09-27-2025 Screening for malign ant neoplasm of colon [facility] Start: 04-26-2025 Influenza vaccination Influenza Vacc ine (#1) [facility] Start: 04-25-2025 [facility] Start: 04-25-2025 MRI of brain without contrast Brain without Contrast [facility] Start: 04-25-2025 Admission procedure [facility] Start: 04-25-2025 Hospital admission, emergency, from emergency room, medical nature [facility] Start: 04-25-2025 Thyroid stimulating hormone measurement [facility] [facility] Start: 04-25-2025 [facility] Start: 12-15-2024 End: 12-15-2024 Patient encounter procedure 12/15/2024 4:00 PM EDT Office Visit Urology [address] [place] [address] Paige Miller PA-C [address] [place] [address] 3 MO OV Urology Comment on above: 3 MO OV Start: 09-29-2024 End: 09-29-2024 Patient encounter procedure 09/29/2024 11:30 AM EST Appointment Radiology [address] [place] [address] Cyst of scrotum [L72.9] Radiology Comment on above: Cyst of scrotum [L72 .9] Start: 09-21-2024 End: 09-21-2024 Patient encounter procedure 09/21/2024 6:40 PM EST Office Visit Family Medicine [place] [address] [place], [place] [id number] Lilia Montero MD [address] [place] [address] wants to restart BP medication; has not been seen since 06/14/23 Family [facility] Comment on above: wants to restart BP medication; has not been seen since 06/14/23 Start: 09-15-2024 End: 10-15-2025 US.doppler Scrotum and testicle US SCROTUM AND CONTENTS Radiology Routine Cyst of scrotum Expected: 09/15/2024 (Approximate), Expires: 10/15/2025 [facility] Work Phone: Comment on above: Expected: 09/15/2024 (Approximate), Expires: 10/15/2025 Start: 06-14-2024 Annual PCP Team Scientific Research Associate martha Disease Visit Annual PCP Team Chronic Disease Visit [facility] Start: 05-17-2024 Annual PCP Team Scientific Research Associate martha Disease Visit Annual PCP Team Chronic Disease Visit [facility] Start: 04-26-2024 Covid-19 Vaccine ( season) Covid-19 Vaccine ( season) [facility] Start: 04-26-2024 Influenza vaccination C [facility] Start: 03-01-2024 DIABETES SCREEN DIABETES SCREEN [facility] Start: 03-01-2024 Diabetes Screening Diabetes Screenin g [facility] Start: 12-14-2023 End: 03-14-2024 Comprehensive metabolic 2000 panel - Serum or Plasma COMP METABOLIC PANEL Lab Routine Essential hypertension, benign Expected: 12/14/2023 (Approximate), Expires: 03/14/2024 [facility] Work Phone: Comment on above: Expected: 12/14/2023 (Approximate), Expires: 03/14/2024 Start: 08-26-2023 Behavioral Health Screening Behavioral Health Screening [facility] Start: 05-17-2023 End: 07-17-2023 Comprehensive metabolic 2000 panel - Serum or Plasma COMP METABOLIC PANEL Lab Routine Essential hypertension, benign Expected: 05/17/2023, Expires: 07/17/2023 [facility] Work Phone: Comment on above: Expected: 05/17/2023 , Expires: 07/17/2023 Start: 05-17-2023 End: 07-17-2023 PSA/PROSTSPECAG SCRN PSA/PROSTSPECAG SCRN Lab Routine Screening for prostate cancer Expected: 05/17/2023, Expires: 07/17/2023 [facility] Work Phone: Comment on above: Expected: 05/17/2023 , Expires: 07/17/2023 Start: 04-26-2023 Covid-19 Vaccine () Covid-19 Vaccine () [facility] Start: 04-26-2023 Influenza vaccination Influenza Vacc ine (#1) [facility] Start: 03-28-2023 ANNUAL PCP TEAM EQUINE VET MARTHA DISEASE VISIT ANNUAL PCP TEAM CHRONIC DISEASE VISIT [facility] Start: 03-22-2023 BP CONTROLLED (<130/80) BP CONTROLLE D (<130/80) [facility] Start: 12-04-2022 Adult depression screening assessment DEPRESSION SCREENING [facility] Start: 12-04-2022 ANNUAL PCP TEAM EQUINE VET MARTHA DISEASE VISIT ANNUAL PCP TEAM CHRONIC DISEASE VISIT [facility] Start: 12-04-2022 HEPATITIS C SCREENING HEPATITIS C [facility] Comment on above: Postponed from 01/16 (Declined at this time) Start: 12-04-2022 HIV SCREENING HIV SCREENING [facility] Comment on above: Postponed from 01/16 (Declined at this time) Start: 08-26-2022 [facility] Start: 04-26-2022 Influenza vaccination [facility] Start: 08-26-2021 DEPRESSION ASSESSMENT DEPRESSION ASS ESSMENT [facility] Start: 06-07-2021 COVID-19 VACCINE (3 - Booster for Moderna series) COVID-19 VACCINE (3 - Booster for Moderna series) [facility] Start: 03-02-2021 COVID-19 VACCINE (3 - Booster for Moderna series) COVID-19 VACCINE (3 - Booster for Moderna series) [facility] Start: 03-02-2021 Covid-19 Vaccine (3 - Moderna series) Covid-19 Vaccine (3 - Moderna series) [facility] Start: 01-17-2020 PROSTATE CANCER SCREENING DISCUSSION PROSTATE CANCER SCREENING DISCUSSION [facility] Start: 01-28-2019 Urine microalbumin profile [facility] Start: 2015 Pneumococcal Vaccine : 50+ (1 of 1 - PCV) Pneumococcal Vaccine: 50+ (1 of 1 - PCV) [facility] Start: 2015 SHINGRIX VACCINE (1 of 2) SHINGRIX VACCINE (1 of 2) [facility] Start: 2010 COLOGUARD (FIT-DNA) COLOGUARD (FIT-D NA) [facility] Start: [address] COLONOGRAPHY [facility] Start: 2010 FECAL OCCULT BLOOD FECAL OCCULT BLOO D [facility] Start: 2010 Screening for malign ant neoplasm of colon [facility] Start: 2010 SIGMOIDOSCOPY SIGMOIDOSCOPY [facility] Start: 01-17-1984 Hepatitis B Vaccine (1 of 3 - 19+ 3-dose series) Hepatitis B Vaccine (1 of 3 - 19+ 3-dose series) [facility] Start: 1983 Anxiety Screening Anxiety Screening [facility] Start: 1983 BP CONTROLLED (<130/80) BP CONTROLLE D (<130/80) [facility] Start: 1983 Depression Screening Depression Scre neda [facility] Start: 1983 Hepatitis C Screening Hepatitis C [facility] Start: 1983 Hepatitis C screening Hepatitis C [facility] Start: 1983 HIV Screening HIV Screening [facility] Start: 1983 HIV screening HIV Screening [facility] Start: 1965 HEPATITIS B (1 of 3 - 3-dose series) HEPATITIS B (1 of 3 - 3-dose series) [facility] Start: 1965 Hepatitis B Vaccine (1 of 3 - 3-dose series) Hepatitis B Vaccine (1 of 3 - 3-dose series) [facility] Amphetamines [Presen ce] in Urine by Screen method >1000 ng/mL [facility] Benzodiazepine measurement, urine [facility] Cocaine measurement, urine [facility] Ethanol [Mass/volume ] in Serum or Plasma [facility] fentaNYL [Presence] in Urine by Screen method [facility] Hemoglobin A1c/Hemoglobin.total in Blood [facility] Methadone measuremen t, urine [facility] Phencyclidine [Prese nce] in Urine [facility] Troponin T.cardiac [Mass/volume] in Serum or Plasma by High sensitivity method [facility] Troponin T.cardiac [Mass/volume] in Serum or Plasma by High sensitivity method [facility] Urine cannabinoid measurement [facility] Urine opiate measurement [facility] End: 01-03-2023 Us scrotum & contents US SCROTUM AND CONTENTS Radiology Routine Mass of right testicle 1 Occurrences starting 12/04/2021 until 01/03/2023 [facility] Work Phone: Comment on above: 1 Occurrences starti ng 12/04/2021 until 01/03/2023 End: 10-15-2025 US.doppler Unspecified body region US DOPPLER COMPLETE Radiology Routine Cyst of scrotum 1 Occurrences starting 09/15/2024 until 10/15/2025 [facility] Comment on above: 1 Occurrences starti ng 09/15/2024 until 10/15/2025 [facility] Immunizations Immunization Date Immunization Notes Care Provider Andre liriano 06-26-2017 influenza, injectabl e, quadrivalent, contains preservative Lilia Montero MD Work Phone: [facility] 06-26-2017 influenza virus vaccine, unspecified formulation Lilia Montero MD Work Phone: [facility] 06-14-2011 influenza virus vaccine, unspecified formulation Lilia Montero MD Work Phone: [facility] 01-28-2009 tetanus toxoid, redu meri diphtheria toxoid, and acellular pertussis vaccine, adsorbed Lilia Montero MD Work Phone: [facility] Payers Date Payer Category Payer Blue Cross Blue [facility] BLUE ACCE SS PPO [id number] 2023 Unknown [id number] 2021 Unknown [facility] PPO [id number] 2021-Present [id number] [id number] 2021 Unknown [id number] Private Health Insurance [id number] Unknown [id number] Social History Date Type Detail Facility Start: 12-18-2010 End: 04-25-2025 Tobacco smoking status NHIS Never smoked tobacco [facility] Start: 12-18-2010 End: 05-17-2023 Tobacco use and exposure Smokeless tobacco non-user [facility] Start: 12-04-2021 End: 09-15-2024 Alcohol intake Current drinker of alcohol (finding) [facility] Start: 11-27-2021 History SDOH Alcohol Frequency 3 [facility] Start: 11-27-2021 History SDOH Alcohol Std Drinks 1 [facility] Start: 09-27-2020 History SDOH Alcohol Comment 1-2 times a month [facility] Start: 11-27-2021 History SDOH Social Connections Phone 2 [facility] Start: 11-27-2021 History SDOH Physical Activity DPW 5 [facility] Start: 11-27-2021 History SDOH Physical Activity MPS 6 [facility] Start: 1965 Sex Assigned At Not on file [facility] Start: 11-24-2021 End: 03-28-2022 Exposure to SARS-CoV-2 (event) Not sure [facility] Start: 11-27-2021 End: 05-17-2023 History of Social function [facility] Start: 11-27-2021 End: 05-17-2023 Social connection and isolation panel [facility] Do you belong to any clubs or organizations such as hoahaoism groups, unions, fraternal or athletic groups, or school groups? Yes [facility] Are you now , , , , never or living with a partner? [facility] How often to you hav e a drink containing alcohol? 2-4 times a month [facility] How many standard dr inks containing alcohol do you have on a typical day? 1 or 2 [facility] How often do you hav e 6 or more drinks on 1 occasion? Never [facility] How hard is it for y ou to pay for the very basics like food, housing, medical care, and heating Not hard at all [facility] Do you feel stress - tense, restless, nervous, or anxious, or unable to sleep at night because your mind is troubled all the time - these days [OSQ] Only a little [facility] (I/We) worried wheth er (my/our) food would run out before (I/we) got money to buy more. Never true [facility] In the past 12 month s, was there a time when you were not able to pay the mortgage or rent on time? No [facility] Start: 09-14-2020 Gender identity Identifies as male gender (finding) [facility] Start: 09-14-2020 Sexual orientation Heterosexual (finding) [facility] Start: 1965 Sex Assigned At Male [facility] Mental Status Date Assessment Result Facility 04-25-2025 Cognitive function Voice/Name [facility] Work Phone: Clinical Notes 12-04-2021 to 04-25-2025 Note Date & Type Note Facility 04-25-2025 Discharge summary [facility] 04-25-2025 Radiology Diagnostic study note [facility] Imaging Services [address] [place], [place] [address] STROKE CTA Head AND Neck W/Con MR#: [id number] Acct: [id number] Name: PHILOMENA BARKER Rep #: [id number] : 1965 M 60 From: Naila Zavala MD PCP: Dr. Lilia Montero MD Status: RE G ER Study:STROKE CTA Head AND Neck W/Con Date of Exam: 04/25/25 Exam# [id number] Ordering Dr: John Bacon MD PROCEDURE: STROKE [...] Vertebral: Unremarkable. LEFT Vertebral: Unremarkable. 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 Aneurysm or avm: No intracranial aneurysms [...] 15% stenosis. 3. No aneurysm. Reading Location: [facility] CC: Dr. Lilia Montero MD; Dr. Bishnu Bacon MD ~ Personal Care Aide: Signed [facility] 04-25-2025 Radiology Diagnostic study note [facility] Imaging Services [address] [place], [place] [address] STROKE Brain/Head without Cont MR#: [id number] Acct: [id number] Name: PHILOMENA BARKER Rep #: [id number] : 1965 M 60 From: Naila Zavala MD PCP: Dr. Lilia Montero MD Status: RE G ER Study:STROKE Brain/Head without Cont Date of Exam: 04/25/25 Exam# [id number] Ordering Dr: John Bacon MD PROCEDURE: STROKE [...] 7:39 p.m, eastern standard time. Reading Location: [id number] CC: Dr. Lilia Montero MD; Dr. Bishnu Bacon MD ~ Personal Care Aide: Signed [facility] 04-25-2025 Discharge summary Note Date/Time April 25, 2025 8:26pm [facility] Medical Records Department [address] [place] [address] Emergency Department Summary 04/25/25 MR#: [id number] Acct: [id number] Name: PHILOMENA BARKER Rep #:[id number] : 1965 60 From: Bishnu Bacon MD PCP: Dr. Lilia Montero MD Status:AD M IN Location: [place] [address] HPI History of Present Illness Chief Complaint: [...] Prior similar symptoms: No Recent Illness/Hospitalization: [facility] Medical History HTN (hypertension) Home Medications ?Medication [...] on the right. Patient has ataxic gait. [place] Coma Scale: document GCS findings Spontaneous Obeys [...] 89.4 H Lymph % (Auto) 8.2 L Gilliam % (Auto) 1.9 Eos % (Auto) 0.0 [...] 7:39 p.m, eastern standard time. Reading Location: [id number] Head/Neck CTA 04/25/25 19:06 IMPRESSION: 1. No large vessel occlusion. 2. Minimal atherosclerosis of the carotid bulb and proximal internal carotid arteries with less than 15% stenosis. 3. No aneurysm. Reading Location: [facility] EKG Initial EKG: Attestation: I personally reviewed and interpreted this EKG as follows: Interpretation: Sinus Rhythm (Normal sinus rhythm rate of 74. The EKG is normal. FL interval is 130 ms per cures duration 84 ms. QT duration 400 ms [place] is normal) Management Discussion w/another healthcare provider: Hospitalist, [employer] (Spoke with stroke neurologist at [facility] Dr. Dvais. He recommended aspirin and loading dose of [...] nystagmus, Hypertension Disposition Disposition: Acute Care Hospital [facility] NIHSS NIHSS 1a. Level of Consciousness: [...] your Primary Care Provider. Call [facility] ([phone]) or report to the closest Emergency Room. Call 911 if necessary. 04/25/252025 <Electronically signed by Bishnu Bacon MD> Cosigner Signature (if applicable): CC: Dr. Lilia Montero MD ~ Signed [facility] Work Phone: 1(927) 191-259508-31-2025 Evaluation note* Diagnosis Onset Date Resolution Status Admit Date Ataxia acute April 25 025 8:18pm Horizontal nystagmus acute Augu st 2024 8:18pm Vertigo acute April 25 025 8:18pm Hypertension chronic April 25, 2025 8:18pm [facility] Work Phone: 1(460) 763-611307-13-2025 NoteHNO ID: [id number] Author: LYN CABAN PA Service: ? Author Type: Physician [employer]her [employer] Type: Progress Notes Filed: 03/07/2025 12:43 Note Text: URGENT CARE [facility] Philomena Barker is a 60 year old [...] oral intake. - Prescription sent to [facility] using TRELYS software for draft documentation of the visit was discussed with the patient/authorized help desk representative; all questions welcomed and answered. Patient/authorized help desk representative agreed to proceed Differential Diagnoses - Sialoadenitis/parotiditis is more likely for the following reason(s): suggested by HANDP - Torsten's angina is less likely for the following reason(s): HANDP not suggestive Disposition The patient was [facility]. [facility] History of Present illness Narrative* Lyn [...] oral intake. - Prescription sent to [facility] using TRELYS software for draft documentation of the visit was discussed with the patient/authorized help desk representative; all questions welcomed and answered. Patient/authorized help desk representative agreed to proceed Differential Diagnoses - Sialoadenitis/parotiditis is more likely for the following reason(s): suggested by H&P - Torsten's angina is less likely for the following reason(s): H&P not suggestive Disposition The patient was discharged. Procedures [facility] Telephone encounter Note * Telephone Encounter - Tio Marquez APRN.CNP - 09/17/2024 10:32 AM EST Rx sent for 30 days The following approved medication requests have been transmitted electronically. Requested Prescriptions Signed Prescriptions Disp Refills lisinopril (ZESTRIL) 10 mg tablet 30 tablet 0 Sig: Take 1 tablet by mouth once daily. Tio Marquez APRN.CNP [facility]01-23-[facility]25 Miscellaneous Notes* Telephone Encounter - Tio Marquez APRN.CNP - 09/17/2024 10:32 AM EST Rx sent for 30 days The following approved medication requests have been transmitted electronically. Requested Prescriptions Signed Prescriptions Disp Refills lisinopril (ZESTRIL) 10 mg tablet 30 tablet 0 Sig: Take 1 tablet by mouth once daily. Tio Marquez APRN.EARLY HEAD START TEACHER * Telephone Encounter - Debbie Caballero MA [...] advised needed an appt. documented in this [facility] Telephone encounter Note * Telephone Encounter - Debbie Caballero MA - 09/17/2024 10:23 AM EST Pt unable to make appt as scheduled next week in the evening. Are you willing to send in #30 day supply to get pt through until being seen. Pt last appt 05/2023. Offered to assist pt in making appt. Please advise. Debbie Caballero MA [facility]01-22-2025 Telephone encounter Note* Telephone Encounter - Nathanael Richardson LPN - 09/16/2024 11:55 AM EST Appt scheduled. Pt notified via message. Nathanael Richardson LPN [facility]01-22-2025 Telephone encounter Note* Telephone Encounter - Nathanael Richardson LPN - 09/16/2024 8:19 AM EST See pt message. SARAH 06/14/23 and no upcoming appt. Pt advised needed an appt. [facility]01-21-[facility]25 Instructions* Patient Instructions* Paige Miller PA-C - 09/15/2024 11:41 AM EST > Scrotum US - orders placed > Follow up for discussion of abnormal results requiring procedure documented in this encounterT[facility]01-21-2025 NoteHNO ID: [id number] Author: PAIGE MILLER PA-C Service: ? Author Type: Physician Crusher [employer] Type: Progress Notes Filed: 09/15/2024 20:48 Note Text: [facility] NEW PATIENT CLINIC NOTE [...] Friends and Family: Twice a week Attends Religion Services: Never Active Member of Clubs or [...] hydrocele rather than an (more content not included)...[facility] History of Present illness Narrative* Paige Miller PA-C - 09/15/2024 11:30 AM EST Images from the original note were not included. [facility] NEW PATIENT CLINIC NOTE [...] Friends and Family: Twice a week Attends Religion Services: Never Active Member of Clubs or [...] DUTCH Hewitt, JOSE, HECTOR documented in this encounterT[facility]01-21-2025 Telephone encounter Note * Telephone Encounter - Zach Rosario LPN - 09/15/2024 10:52 AM EST Patient present for appointment. Has not been seen for testicular concern since US done 12/11/2021.Zach Rosario LPN [facility]01-21-2025 Miscellaneous Notes* Telephone Encounter - Zach Rosario [...] where? Zach Rosario LPN documented [facility]20[facility] Telephone encounter Note * Telephone Encounter - Zach Rosario LPN - 09/10/2024 11:00 AM EST Called patient. No answer- left message. Patient scheduled for 09/15/2024 in urology for testiculargrowth. Has he been seen elsewhere and if so where? Zach Rosario LPN [facility] History of Present illness Narrative* Tio Marquez APRN.EARLY HEAD START TEACHER - 06/14/2023 8:20 AM EDT Chief Complaint [...] needed. This note was partly generated using Delphi voice recognition dictation and may contain some misspelled or inaccurate words missed on review. documented in this encounterT[facility] Center10-20-2023 Instructions* Patient Instructions* Tio Marquez APRN.CNP - 06/14/2023 8:15 AM EDT Continue current medications Repeat labs in 6 months Tio Marquez APRN.CNP documented in this encounterT[facility]09-22-2023 History of Present illness Narrative* Tio Marquez [...] needed. This note was partly generated using Delphi voice recognition dictation and may contain some misspelled or inaccurate words missed on review. documented in this encounterT[facility] Center08-03-2022 Instructions* Patient Instructions* Kanchan Vásquez APRN.CNP - [...] numbing agent in them. documented in this encounterTogus [facility] Center08-03-2022 History of Present illness Narrative* Kanchan Vásquez [...] at home. - May continue to use [id number] cold and cough medication as needed for [...] APRN.MARIKA This note was partially generated using Delphi voice recognition system. Note was reviewed for accuracy. There may be minor misspellings or grammar miscues with Delphi voice recognition. documented in this encounterT[facility]07-28-2022 History of Present illness Narrative* Zoila Hicks [...] plan. HECTOR Terry PA-C documented in this encounterTogus [facility] Center07-24-2022 Instructions* Patient Instructions* Juani Brice APRN.[facility] - 03/18/2022 9:50 AM EDT RESPIRATORY [...] spread by coughs, sneezes, anddirect contact, especially [id number]. A respiratory tract infection usually clears up [...] 102 F (39 C). documented in this encounterTogus [facility] Center07-24-2022 History of Present illness Narrative* Juani Brice APRN.CNP - 03/18/2022 9:44 AM EDT This note was created using Social Shopping Networkriter. Subjective Philomena Barker is a 57 year [...] history is provided by the patient. No environmental field professional was used. URI He complains of cough. [...] that Juani Brice APRN.MARIKA documented in this encounterT[facility] Center04-19-2022 Miscellaneous Notes* Telephone Encounter - Rika Yao [...] treatment. Lilia Montero MD documented in this encounterTogus [facility] Center04-18-2022 History of Present illness Narrative* Juani Mauro [...] 11, 2021 8:26 AM documented in this encounterTogus [facility] Center04-11-2022 History of Present illness Narrative* Lilia Montero [...] cycling, running and playing golf. Rides with [employer] and [employer] groups. Depression/BEATRIZ: No longer taking Effexor. Reports [...] CONTENTS Lilia Montero MD [facility] Diagnosis Wellness examination- Primary Mass of right testicle documented [facility]* Diagnosis Mass of right testicle documented in this encounter [facility]* Diagnosis Hydrocele, encysted- Primary Encysted hydrocele documented in this encounter [facility]* Diagnosis URI, acute- Primary Acute upper respiratory infections of unspecified site documented in this encounter [facility] note* Diagnosis Hoarseness of voice- Primary Dysphonia documented in this encounter [facility]* Diagnosis Hoarseness of voice- Primary Dysphonia Laryngitis Acute laryngitis, without mention of obstruction documented in this encounter [facility]* Diagnosis Anxiety and depression- Primary Dysthymic disorder Essential hypertension, benign Screening for prostate cancer Special screening for malignant neoplasm of prostate documented in this encounter [facility] note* Diagnosis Anxiety and depression- Primary Dysthymic disorder Essential hypertension, benign Elevated bilirubin Jaundice, unspecified, not of documented in this encounter [facility] note* Diagnosis Cyst of scrotum- Primary Sebaceous cyst documented in this encounter [facility] note* Diagnosis Essential hypertension, benign documented in this encounter [facility] note* Diagnosis Sialadenitis- Primary Sialoadenitis documented in this encounter [facility] for referral (narrative)* Diagnostic Procedure Only (Routine) - Authorized Specialty Diagnoses / Procedures Referred By Charlie t Referred To Contact US IMAGING Diagnoses Mass of right testicle Procedures US SCROTUM AND CONTENTS US SCROTUM & CONTENTS Lilia Montero MD [address] [place] [address] Us Imaging Referral ID Status Reason Start Date Expiration Date Visits Requested Visits Authorized [id number] Authorized Auto-Generat ed Referral 12/04/2021 01/03/2023 1 1 [facility] for referral (narrative)* Diagnostic Procedure Only (Routine) - Closed Specialty Diagnoses / Procedures Referred By Charlie phillips Referred To Contact US IMAGING Diagnoses Mass of right testicle Procedures US SCROTUM AND CONTENTS US SCROTUM & CONTENTS Lilia Montero MD [address] [place] [address] Us Imaging Referral ID Status Reason Start Date Expiration Date V isits Requested Visits Authorized [id number] Closed Auto-Generate d Referral 12/04/2021 01/03/2023 1 1 [facility] for referral (narrative)* Diagnostic Procedure Only (Routine) - Authorized Specialty Diagnoses / Procedures Referred By Charlie t Referred To Contact US IMAGING Diagnoses Cyst of scrotum Procedures US DOPPLER COMPLETE DUP-SCAN ARTL TERESSA ABDL/PEL/SCROT&/RPR [facility] Paige Miller PA-C [id number] [id number] Us Imaging [place] [address] Referral ID Status Reason Start Date Expiration Date Visits Requested Visits Authorized [id number] Authorized Auto-Generat ed Referral 09/15/2024 10/15/2025 1 1 * Diagnostic Procedure Only (Routine) - Authorized Specialty Diagnoses / Procedures [facility] Referred To Contact US IMAGING Diagnoses Cyst of scrotum Procedures US SCROTUM AND CONTENTS US SCROTUM & CONTENTS Paige Miller PA-C [address] [place] [address] [facility] [address] Referral ID Status Reason Start Date Expiration Date Visits Requested Visits Authorized [id number] Authorized Auto-Generat ed Referral 09/15/2024 10/15/2025 1 [facility]No reason for referral information availableWCleveland [facility] Work Phone: Summary Purpose Family History No Family History Records FoundNo Family History Records Found Advance Directives Documents on File Type Date Recorded 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 No April 25, 2025 6:50pm Reason for Referral Specialty Diagnoses / Procedures Referred By Contkhushboo t Referred To Contact Urology Diagnoses Hydrocele, encysted Procedures CONSULT TO UROLOGY OFFICE/OUTPATIENT [facility] 60-74 MINUTES Lilia Montero MD [address] [place] [address] Referral ID Status Reason Start Date Expiration Date Visits Requested Visits Authorized [id number] Authorized PCP Requested Referral 12/11/2021 12/11/2022 1 1 Specialty Diagnoses / Procedures Referred By Charlie t Referred To Contact Ent - Otolaryngology Diagnoses Hoarseness of voice Procedures CONSULT TO ENT OFFICE/OUTPATIENT [facility] 60-74 MINUTES Kanchan Vásquez APRN.CNP [address] [place] [address] Referral ID Status Reason Start Date Expiration Date Visits Requested Visits Authorized [id number] Authorized PCP Requested Referral 03/28/2022 03/28/2023 1 [...] section and content) DATE CREATED AUTHOR 06/07/2020 [facility] DATE CREATED AUTHOR AUTHOR'S ORGANIZ ATION 03/10/2025 [facility] Source Comments (unrecognize d section and content) In the event this informatio n is protected by the Federal Confidentiality of Alcohol and Drug Abuse Patient Records regulations: The Federal rules restrict any use of the information to criminally investigate or prosecute any alcohol or drug abuse patient.[facility] the event this information is protected by the Federal Confidentiality of Alcohol and Drug Abuse Patient Records regulations: The Federal rules restrict any use of the information to criminally investigate or prosecute any alcohol or drug abuse patient.[facility] Center[facility] the event this information is protected by the Federal Confidentiality of Alcohol and Drug Abuse Patient Records regulations: The Federal rules restrict any use of the information to criminally investigate or prosecute any alcohol or drug abuse patient.[facility] Center[facility] the event this information is protected by the Federal Confidentiality of Alcohol and Drug Abuse Patient Records regulations: The Federal rules restrict any use of the information to criminally investigate or prosecute any alcohol or drug abuse patient.[facility] Center[facility] the event this information is protected by the Federal Confidentiality of Alcohol and Drug Abuse Patient Records regulations: The Federal rules restrict any use of the information to criminally investigate or prosecute any alcohol or drug abuse patient.[facility] Center[facility] the event this information is protected by the Federal Confidentiality of Alcohol and Drug Abuse Patient Records regulations: The Federal rules restrict any use of the information to criminally investigate or prosecute any alcohol or drug abuse patient.[facility] Center[facility] the event this information is protected by the Federal Confidentiality of Alcohol and Drug Abuse Patient Records regulations: The Federal rules restrict any use of the information to criminally investigate or prosecute any alcohol or drug abuse patient.[facility] Center[facility] the event this information is protected by the Federal Confidentiality of Alcohol and Drug Abuse Patient Records regulations: The Federal rules restrict any use of the information to criminally investigate or prosecute any alcohol or drug abuse patient.[facility] CenterIn the event this information is protected by the Federal Confidentiality of Alcohol and Drug Abuse Patient Records regulations: The Federal rules restrict any use of the information to criminally investigate or prosecute any alcohol or drug abuse patient.[facility] Center[facility] the event this information is protected by the Federal Confidentiality of Alcohol and Drug Abuse Patient Records regulations: The Federal rules restrict any use of the information to criminally investigate or prosecute any alcohol or drug abuse patient.[facility] Center[facility] the event this information is protected by the Federal Confidentiality of Alcohol and Drug Abuse Patient Records regulations: The Federal rules restrict any use of the information to criminally investigate or prosecute any alcohol or drug abuse patient.[facility] Center[facility] the event this information is protected by the Federal Confidentiality of Alcohol and Drug Abuse Patient Records regulations: The Federal rules restrict any use of the information to criminally investigate or prosecute any alcohol or drug abuse patient.[facility] CenterIn the event this information is protected by the Federal Confidentiality of Alcohol and Drug Abuse Patient Records regulations: The Federal rules restrict any use of the information to criminally investigate or prosecute any alcohol or drug abuse patient.[facility] CenterIn the event this information is protected by the Federal Confidentiality of Alcohol and Drug Abuse Patient Records regulations: The Federal rules restrict any use of the information to criminally investigate or prosecute any alcohol or drug abuse patient.[facility] CenterIn the event this information is protected by the Federal Confidentiality of Alcohol and Drug Abuse Patient Records regulations: The Federal rules restrict any use of the information to criminally investigate or prosecute any alcohol or drug abuse patient.[facility] CenterIn the event this information is protected by the Federal Confidentiality of Alcohol and Drug Abuse Patient Records regulations: The Federal rules restrict any use of the information to criminally investigate or prosecute any alcohol or drug abuse patient.[facility] Reason for Visit (unrecogniz ed section and content) Reason Comments Wellness Reason Comments Radiology US Specialty Diagnoses / Procedures Referred By Charlie phillips Referred To Contact US IMAGING Diagnoses Mass of right testicle Procedures US SCROTUM AND CONTENTS US SCROTUM & CONTENTS Lilia Montero MD [address] [place] [address] Us Imaging Referral ID Status Reason Start Date Expiration Date V isits Requested Visits Authorized [id number] Closed Auto-Generate d Referral 12/04/2021 01/03/2023 1 [...] Care Teams (unrecognized sec tion and content) Rn Call Center Relationship Specialty Start Date End Date Lilia Montero MD [address] [place] [address] PCP - General Family Practice 01/30/11 Rn Call Center Relationship Specialty Start Date End Date Lilia Montero MD [address] [place] [address] PCP - General Family Practice 01/30/11 Rn Call Center Relationship Specialty Start Date End Date Lilia Montero MD [address] [place] [address] PCP - General Family Practice 01/30/11 Rn Call Center Relationship Specialty Start Date End Date Lilia Montero MD [address] [place] [address] PCP - General Family Practice 01/30/11 Rn Call Center Relationship Specialty Start Date End Date Lilia Montero MD [address] [place] [address] PCP - General Family Practice 01/30/11 Rn Call Center Relationship Specialty Start Date End Date Lilia Montero MD [address] [place] [address] PCP - General Family Practice 01/30/11 Rn Call Center Relationship Specialty Start Date End Date Lilia Montero MD [address] [place] [address] PCP - General Family Practice 01/30/11 Rn Call Center Relationship Specialty Start Date End Date Lilia Montero MD [address] [place] [address] PCP - General Family Medicine 01/30/11 Rn Call Center Relationship Specialty Start Date End Date Lilia Montero MD [address] [place] [address] PCP - General Family Medicine 01/30/11 Rn Call Center Relationship Specialty Start Date End Date Lilia Montero MD [address] [place] [address] PCP - General Family Medicine 01/30/11 Rn Call Center Relationship Specialty Start Date End Date Lilia Montero MD [address] [place] [address] PCP - General Family Medicine 01/30/11 Rn Call Center Relationship Specialty Start Date End Date Lilia Montero MD [address] [place] [address] PCP - General Family Medicine 01/30/11 Rn Call Center Relationship Specialty Start Date End Date Lilia Montero MD [address] [place] [address] PCP - General Family Medicine 01/30/11 Kanchan Vásquez, TELEVISION INSTALLER HELPER.EARLY HEAD START TEACHER [address] [place] [address] Engineering Designer Family Medicine 08/02/24 Tio Marquez, TELEVISION INSTALLER HELPER.EARLY HEAD START TEACHER [address] [place] [address] Engineering Designer Family Medicine 08/11/24 Rn Call Center Relationship Specialty Start Date End Date Lilia Montero MD [address] [place] [address] PCP - General Family Medicine 01/30/11 Kanchan Vásquez, TELEVISION INSTALLER HELPER.EARLY HEAD START TEACHER [address] [place] [address] Engineering Designer Family Medicine 08/02/24 Tio Marquez TELEVISION INSTALLER HELPER.EARLY HEAD START TEACHER [address] [place] [address] Engineering Designer Family Medicine 08/11/24 Rn Call Center Relationship Specialty Start Date End Date Lilia Montero MD [address] [place], [place] [address] PCP - General Family Medicine 01/30/11 Kanchan Vásquez APRN.EARLY HEAD START TEACHER [address] [place], [place] [id number] Engineering Designer [facility] Medicine 08/02/24 Tio Marquez APRN.EARLY HEAD START TEACHER [address] [place], [place] [address] [facility] 08/11/24 Rn Call Center Relationship Specialty Start Date End Date Lilia Montero MD [address] [place], [place] [address] PCP - General Family Medicine 01/30/11 Tio Marquez, TELEVISION INSTALLER HELPER.EARLY HEAD START TEACHER [address] [place], [place] [id number] [facility] 08/11/24 Team Status: Active Member Role/Relationship Status [...] BE BASED ON THE PRIMARY CLINICAL RECORDS. [facility] [facility]. provides no warranty or guarantee of the accuracy or completeness of information in this document.
[2025-04-26 05:25] VITALS: BP 143/90; PULSE 79; RESP 16; TEMP 36.9; O2SAT 98
[2025-04-26 09:25] VITALS: BP 137/79; PULSE 68; RESP 16; TEMP 36.6; O2SAT 99
[2025-04-26 10:13] LABS: Cholesterol 217 mg/dL (<=200); Low Density Lipoprotein Calc. 147 mg/dL; Triglycerides 87 mg/dL; Very Low Density Lipoprotein 17 mg/dL (5-40); cholesterol:hdl ratio screen 4.13
--- NOTE | 2025-04-26 10:54 | CON.PCM.NE_ITS ---
Assessment and Plan: Neuro Assessment/Plan PHILOMENA VALENZUELA is a 60 M being evaluated by Teleneurology for vertigo. Exam with rightward nystagmus, no Skew. CTA/CTH unremarkable. History and exam most consistent with peripheral vertigo - likely vestibular neuritis - but will need to rule out central cause like stroke. Diagnosis: Vertigo Plan: Agree with MRI Brain - If stroke would start ASA 81 and Atorvastatin 40 mg (LDL 147) - If no stroke would procide Antivert PRN for home going. If symptoms persistent recommend referral to vestibular PT. I personally attended this patient and spent a total time of 32 minutes evaluating this patient including clinical assessment, review of chart, medical history imaging, and determining appropriate treatment and workup. HPI Consult Data Date of Consult: 04/26/25 HPI Narrative HPI Narrative: PHILOMENA VALENZUELA, is a 60 M with a past medical history of essential hypertension; with patient reporting having been weaned off his blood pressure medicine and history of generalized anxiety who presented complaining of dizziness. 3 days ago had sudden onset vertigo. Room was spinning around him and felt unsteady on his feet. Still able to walk but did feel unsteady. Improved after he went to sleep, the following morning had full resolved but than returned yesterday. Reports ongoing dizziness but overall less intense today than yesterday. Vertigo is not associated with position changes and has been fairly consistent since onset. He was able to work with PT this morning. Reports his predominant symptom today is feeling of movement when he is looking particularly to the right. No speech changes, hearing changes, weakness, or numbness. [facility] Medical History HTN (hypertension) Home Medications ?Medication ?Instructions ?Recorded ?Last Taken ?Type multivitamin with minerals 1 ea PO DAILY supp 06/04/20 04/22/25 History glucosamine 750 ks-bumpay-pfz 1 1 tab PO supp 04/25/25 04/22/25 History 625 mg-D3 1,000 ethq-D-cnz-Bosw tablet (Xftjzqhlqak-Pdnsebrwidq-HRR with vit D) omeg3-epa 150 mg-dha 100 mg-fish 1 cap PO DAILY supp 0 04/25/25 04/22/25 History oil-flaxseed oil 333 mg-E 61 unit cap Allergy/AdvReac Type Severity Reaction Status Date / Time No Known Allergies Allergy Verified 04/25/25 18:39 Family History adopted Surgical History no surgical history Social History household members: spouse Smoking Status: Never smoker details: SOCIAL substance use type: does not use Vital Signs Vital Signs Vital Signs: 04/25/25 18:39 04/25/25 19:05 04/25/25 19:35 Temperature 98.2 F Temperature Source Oral Pulse Rate 90 81 Pulse Strength Respiratory Rate 16 20 H Blood Pressure 134/80 H 172/85 H Blood Pressure Mean 98 114 Blood Pressure Source Blood Pressure Position Blood Pressure Location Pulse Ox 98 99 Oxygen Delivery Method Room Air Room Air Room Air 04/25/25 19:59 04/25/25 20:02 04/25/25 21:23 Temperature 98.1 F 98.1 F Temperature Source Oral Pulse Rate 73 81 74 Pulse Strength Respiratory Rate 18 18 18 Blood Pressure 148/98 H 152/85 H 156/96 H Blood Pressure Mean 114 107 116 Blood Pressure Source Monitor Blood Pressure Position Semi-Fowlers Blood Pressure Location Left Arm Pulse Ox 99 99 99 Oxygen Delivery Method Room Air Room Air 04/25/25 21:38 04/25/25 22:00 04/26/25 01:00 Temperature Temperature Source Pulse Rate Pulse Strength Normal (2+) Respiratory Rate Blood Pressure Blood Pressure Mean Blood Pressure Source Blood Pressure Position Blood Pressure Location Pulse Ox 99 Oxygen Delivery Method Room Air Room Air 04/26/25 01:25 04/26/25 05:25 04/26/25 09:25 Temperature 98.1 F 98.4 F 97.8 F Temperature Source Oral Oral Oral Pulse Rate 78 79 68 Pulse Strength Respiratory Rate 16 16 16 Blood Pressure 139/91 H 143/90 H 137/79 H Blood Pressure Mean 107 107 98 Blood Pressure Source Monitor Monitor Monitor Blood Pressure Position Semi-Fowlers Semi-Fowlers Semi-Fowlers Blood Pressure Location Left Arm Left Arm Right Arm Pulse Ox 98 98 99 Oxygen Delivery Method Room Air Room Air Room Air 04/26/25 09:25 04/26/25 09:55 Temperature 97.8 F Temperature Source Oral Pulse Rate 68 Pulse Strength Respiratory Rate 16 Blood Pressure 137/79 H Blood Pressure Mean 98 Blood Pressure Source Monitor Blood Pressure Position Semi-Fowlers Blood Pressure Location Right Arm Pulse Ox 99 Oxygen Delivery Method Room Air Room Air Weight Weight: 75 kg Body Mass Index (BMI) 24.4 EEG Results Procedure Details EEG Procedure Details: PHILOMENA VALENZUELA is a 60 year old M with a past medical history of , who presents for evaluation of Electroencephalogram on DATE at TIME Physical Exam Neuro Neuro Narrative: There is right beating nystagmus with rightward and upward gaze. Does not change direction. No Skew deviation. Sensorium / Orientation: awake, alert, oriented to person, oriented to place and oriented to time Cranial Nerves: CN normal except as noted Coordination / Balance: hjxcay-hi-cqsl test normal and cjai-uv-noxo test normal Speech: speech normal Sensory Exam: double simultaneous stimulation for sensation normal Motor Exam: strength 5/5 throughout, no pronator drift and no tremor Lab / Micro Data 04/25/25 19:13 04/25/25 19:13 Labs: Laboratory Results - last 24 hr 04/25/25 19:13: WBC 8.9, RBC 5.07, Hgb 16.2, Hct 43.6, MCV 86.0, MCH 32.0, MCHC 37.2 H, RDW Std Deviation 35.1, RDW Coeff of Amanda 11.3 L, Plt Count 198, MPV 9.3, Immature Gran % (Auto) 0.300, Neut % (Auto) 89.4 H, Lymph % (Auto) 8.2 L, [place] % (Auto) 1.9, Eos % (Auto) 0.0, Baso % (Auto) 0.2, Absolute Neuts (auto) 7.9 H, A bsolute Lymphs (auto) 0.73 L, Nucleated RBC % 0, PT 13.4, INR 1.0, APTT 21.1 L, Sodium 136, Potassium 4.5, Chloride 102, Carbon Dioxide 21.3, Anion Gap 13, BUN 16, Creatinine 0.92, Estim Creat Clear Calc 88.16, Est GFR (MDRD) Non-Af 95, BUN/Creatinine Ratio 17.4, Glucose 160 H, Hemoglobin A1c 5.1, Calcium 9.2, Troponin T High Sens < 6, TSH 0.817, Ethyl Alcohol < 10.1 04/25/25 21:25: Troponin T Hi Sens 2 Hr < 6 04/25/25 23:00: Urine Opiates Screen NEGATIVE, U Buprenorphine Qual NEGATIVE, Ur Oxycodone Screen NEGATIVE, Urine Methadone Screen NEGATIVE, Urine Fentanyl Screen NEGATIVE, Ur Barbiturates Screen NEGATIVE, Ur Phencyclidine Scrn NEGATIVE, Ur Amphetamines Screen NEGATIVE, U Benzodiazepines Scrn NEGATIVE, Urine Cocaine Screen NEGATIVE, U Cannabinoids Screen NEGATIVE 04/25/25 23:25: Troponin T Hi Sens 4Hr < 6 04/26/25 05:30: Triglycerides 87, Cholesterol 217 H, LDL Cholesterol, Calc 147, VLDL Cholesterol 17, HDL Cholesterol 53, Cholesterol/HDL Ratio 4.13 Imaging Radiology Impression Brain CT 04/25/25 19:05 IMPRESSION: No acute intracranial abnormality. The findings and impression of this report were called directly to the ordering physician, Dr. Bacon at 7:39 p.m, eastern standard time. Reading Location: [facility] Head/Neck CTA 04/25/25 19:06 IMPRESSION: 1. No large vessel occlusion. 2. Minimal atherosclerosis of the carotid bulb and proximal internal carotid arteries with less than 15% stenosis. 3. No aneurysm. Reading Location: [facility] Active Medications Active Medications Active Medications: Current Medications Generic Name Dose Route Start Last Admin Trade Name Freq PRN Reason Stop Dose Admin Acetaminophen 650 mg 04/25/25 21:13 Acetaminophen 325 Mg Tablet PO Q6H PRN PRN Pain 1-10 Or Fever>99.6 Alprazolam 0.125 mg 04/26/25 03:32 Alprazolam 0.25 Mg Tablet PO BID PRN PRN ANXIETY Aspirin 81 mg 04/26/25 08:00 04/26/25 09:59 Aspirin 81 Mg Tab.Chew PO 81 mg DAILYCM MEET Administration Atorvastatin Calcium 80 mg 04/25/25 22:00 04/25/25 21:52 Atorvastatin Calcium 80 Mg Tablet PO 80 mg QHS MEET Administration Clopidogrel Bisulfate 75 mg 04/26/25 10:00 04/26/25 09:59 Clopidogrel Bisulfate 75 Mg Tablet PO 75 mg DAILY MEET Administration Enoxaparin Sodium 40 mg 04/26/25 10:00 04/26/25 09:59 Enoxaparin 40 Mg/0.4 Ml Syringe SC 40 mg DAILY MEET Administration Sodium Chloride 1,000 mls @ 70 mls/hr 04/25/25 21:13 04/25/25 21:53 IV 04/26/25 11:30 70 mls/hr .[id number] MEET Administration Labetalol HCl 20 mg 04/25/25 19:05 Labetalol 20 Mg/4 Ml Vial IV 04/26/25 19:05 X1 PRN BLOOD PRESSURE Meclizine HCl 12.5 mg 04/25/25 21:13 04/25/25 21:52 Meclizine 12.5 Mg Tablet PO 12.5 mg TID PRN PRN Administration VERTIGO Multivitamins/Minerals 1 tablet 04/26/25 08:00 04/26/25 09:59 Multivitamins,Ther W-Minerals Tablet PO 1 tablet DAILYCM MEET Administration Ondansetron HCl 4 mg 04/25/25 21:13 04/25/25 22:12 Ondansetron 4 Mg/2 Ml Vial IV 4 mg Q6H PRN PRN Administration NAUSEA/VOMITING Promethazine HCl 12.5 mg 04/25/25 21:13 Promethazine 25 Mg/Ml Syringe IM Q4H PRN PRN BREAKTHROUGH NAUSEA Scopolamine HBr 1 patch 04/25/25 22:00 04/25/25 21:52 Scopolamine 1mg/72hr Patch TD 1 patch Q3D@2200 MEET Administration Sodium Chloride 10 - 40 ml 04/25/25 21:25 04/25/25 21:53 0.9% Saline Lock 10 Ml Syringe IV 10 ml UD PRN Administration SALINE FLUSH NIHSS NIHSS Nursing Documentation NIHSS Nursing Documentation: NIHSS: Ischemic Stroke/TIA Start: 04/25/25 21:13 Text: For PCU Patients: NIH and Neuro Check every 4 Status: Active hours, PRN and with change in RN caregiver. Freq: [id number] Protocol: Activity Type Activity Date Activity User E-sign Co-sign Detail Recorded Client Recorded Date Recorded By Document 04/26/25 09:25 EM [id number] 04/26/25 09:50 EM 04/26/25 09:25 NIH Stroke Scale [NIHSS] A score of 0 is normal or asymptomatic . Total possible score is 42. Inpatient: RN or Physician to activate a stroke alert for onset of new stroke symptoms or with NIHSS increase >/= 3 points. Following change in neurological status, NIHSS will be performed per physician order or more frequently PRN. -1a. Level of Consciousness 0 - Alert; keenly responsive -1b. LOC Questions 0 - Answers BOTH questions correctly -1c. LOC Commands 0 - Performs BOTH tasks correctly -2. Best Gaze 0 - Normal -3. Visual 0 - No visual loss -4. Facial Palsy 0 - Normal symmetrical movements -5a. Left Arm 0 - No drift; arm holds 90 ( or 45) degrees for full 10 seconds -5b. Right Arm 0 - No drift; arm holds 90 ( or 45) degrees for full 10 seconds -6a. Left Leg 0 - No drift; leg holds 30- degree position for full 5 seconds -6b. Right Leg 0 - No drift; leg holds 30- degree position for full 5 seconds -7. Limb Ataxia 0 - Absent -8. Sensory 0 - Normal; no sensory loss -9. Best Language 0 - No aphasia; normal -10. Dysarthria 0 - Normal -11. Extinction and Inattention 0 - No abnormality -Total 0 Query Text:A score of 0 is normal or asymptomatic. Total possible score is 42 . ED: Notify Physician for NIHSS increase by > / = 3 points. Inpatient: RN or Physician to activate a stroke alert for NIHSS increase of > / = 3 points. Coma Scale [Assess] -Eye Opening Spontaneous -Motor Obeys Commands -Verbal Oriented [Total] -Coma Scale Total 15 NIHSS 1a. Level of Consciousness: 0 - Alert; keenly responsive 1b. LOC Questions: 0 - Answers BOTH questions correctly 1c. LOC Commands: 0 - Performs BOTH tasks correctly 2. Best Gaze: 0 - Normal 3. Visual: 0 - No visual loss 4. Facial Palsy: 0 - Normal symmetrical movements 5a. Left Arm: 0 - No drift; arm holds 90 (or 45) degrees for full 10 seconds 5b. Right Arm: 0 - No drift; arm holds 90 (or 45) degrees for full 10 seconds 6a. Left Le - No drift; leg holds 30-degree position for full 5 seconds 6b. Right Le - No drift; leg holds 30-degree position for full 5 seconds 7. Limb Ataxia: 0 - Absent 8. Sensory: 0 - Normal; no sensory loss 9. Best Language: 0 - No aphasia; normal 10. Dysarthria: 0 - Normal 11. Extinction and Inattention: 0 - No abnormality Total: 0
[2025-04-26 13:25] VITALS: BP 142/84; PULSE 68; RESP 17; TEMP 36.6; O2SAT 99
--- NOTE | 2025-04-26 16:39 | DS.PCM_ITS ---
Providers Date of Admission: 04/25/25 Date of Discharge: 04/26/25 Primary Care Physician: Dr. Scar Wilkins MD Consultations 04/25/25 21:13 Consult: Tele-Neurology Routine Consulting Provider: [facility] Reason for Consult: Acute Ischemic Stroke/TIA EMERGENT Consult: No MD Notified: Yes Date Notified: 04/25/25 Time Notified: 20:52 Method of Notification: ED Physician Initiated Nursing Unit Staff Notify [facility] of Tele-Neurology Consult: Yes Reason For Visit: VERTIGO & ATAXIA RULE OUT TIA/CVA Diagnosis Discharge Diagnosis (1) Vertigo: Status: Acute Code(s): R42 - Dizziness and giddiness (2) Ataxia: Status: Acute Code(s): R27.0 - Ataxia, unspecified (3) Horizontal nystagmus: Status: Acute Code(s): H55.09 - Other forms of nystagmus (4) Hypertension: Status: Chronic Code(s): I10 - Essential (primary) hypertension Qualifiers: Hypertension type: unspecified Qualified Code(s): I10 - Essential (primary) hypertension Medications at Discharge Home Medications multivitamin with minerals 1 ea PO DAILY supp 06/04/20 glucosamine 750 hd-qbkcoz-rvw 1 625 mg-D3 1,000 ymao-O-med-Bosw tablet (Xjknayvdeda-Nmplerykerw-WIH with vit D) 1 tab PO supp 04/25/25 omeg3-epa 150 mg-dha 100 mg-fish oil-flaxseed oil 333 mg-E 61 unit cap 1 cap PO DAILY supp 04/25/25 atorvastatin 40 mg tablet (Lipitor) 40 mg PO DAILY #30 tabs 04/26/25 meclizine 25 mg tablet 25 mg PO BID PRN dizziness #60 tabs 04/26/25 Hospital Course Operations None Procedures 2-D Echocardiogram Summary of Care Provided Minutes Spent on Discharge: 45 Hospital Course: Patient is a 60-year-old male with past medical history as outlined who was admitted with a complaint of dizziness. His symptoms started about 3 days prior to admission with complaints of severe onset of vertigo. The symptoms resolved at that time so he did not seek any medical attention. Around 8 AM on the morning of admission his dizziness recurred causing him to feel things moving around him. He therefore decided to come into the ED. His had tried an Huy maneuver at home but it did not help with his symptoms. He had no other complaints. CT of the brain without contrast did not show any acute intracranial pathology and CTA of the head and neck showed no hemodynamically significant stenosis and showed less than 50% stenosis of the proximal internal carotid arteries. He also had an ataxic gait so there was concern for TIA versus CVA. He was started on aspirin and Plavix and high intensity statin. He had 2D echo which showed EF of 55 to 60% and structurally normal valves with bubble study negative for PFO or ASD. Neurology reviewed him and felt his symptoms were likely due to vestibular neuritis. Recommended patient could be discharged on p.o. meclizine as needed and follow-up with PCP on outpatient basis as needed. If symptoms persisted to be referred to vestibular PT OT. Patient was seen and examined on day of discharge. He had no complaints. His symptoms have not recurred. Review of systems otherwise negative. Labs and vitals reviewed. Home medication reviewed and reconciled. Physical Exam Const alert, oriented x3 and no apparent distress General Appearance: cooperative and comfortable Orientation / Consciousness: awake Exam Limitations: no limitations HEENT normocephalic, head/scalp atraumatic, hearing grossly normal bilaterally, moist oral mucous membranes and oropharynx normal Mouth: oral and palatal mucosa normal Eyes PERRL, EOMs intact bilaterally and conjunctivae normal Neck supple Resp normal respiratory effort, no retractions, no use of accessory muscles and clear to auscultation bilaterally Cardio regular rate, regular rhythm, S1 normal heart sound, S2 normal heart sound and no murmurs GI normal to inspection, nondistended, normoactive bowel sounds, soft to palpation and non-tender Extremity normal to inspection, full ROM and no clubbing, cyanosis or edema Skin no rashes or lesions noted Neuro oriented x3, CN's II-XII intact bilaterally, moves all extremities, no focal motor deficits and no sensory deficits noted Sensorium / Orientation: awake and alert Motor Exam: strength 5/5 throughout Psych affect normal Weight / BMI Weight Weight: 165 lb 5.547 oz Body Mass Index (BMI) 24.4 ABG / Lab / Microbiology Data 04/25/25 19:13 04/25/25 19:13 Laboratory: Laboratory Results - last 24 hr 04/25/25 19:13: WBC 8.9, RBC 5.07, Hgb 16.2, Hct 43.6, MCV 86.0, MCH 32.0, MCHC 37.2 H, RDW Std Deviation 35.1, RDW Coeff of Amanda 11.3 L, Plt Count 198, MPV 9.3, Immature Gran % (Auto) 0.300, Neut % (Auto) 89.4 H, Lymph % (Auto) 8.2 L, [place] % (Auto) 1.9, Eos % (Auto) 0.0, Baso % (Auto) 0.2, Absolute Neuts (auto) 7.9 H, A bsolute Lymphs (auto) 0.73 L, Nucleated RBC % 0, PT 13.4, INR 1.0, APTT 21.1 L, Sodium 136, Potassium 4.5, Chloride 102, Carbon Dioxide 21.3, Anion Gap 13, BUN 16, Creatinine 0.92, Estim Creat Clear Calc 88.16, Est GFR (MDRD) Non-Af 95, BUN/Creatinine Ratio 17.4, Glucose 160 H, Hemoglobin A1c 5.1, Calcium 9.2, Troponin T High Sens < 6, TSH 0.817, Ethyl Alcohol < 10.1 04/25/25 21:25: Troponin T Hi Sens 2 Hr < 6 04/25/25 23:00: Urine Opiates Screen NEGATIVE, U Buprenorphine Qual NEGATIVE, Ur Oxycodone Screen NEGATIVE, Urine Methadone Screen NEGATIVE, Urine Fentanyl Screen NEGATIVE, Ur Barbiturates Screen NEGATIVE, Ur Phencyclidine Scrn NEGATIVE, Ur Amphetamines Screen NEGATIVE, U Benzodiazepines Scrn NEGATIVE, Urine Cocaine Screen NEGATIVE, U Cannabinoids Screen NEGATIVE 04/25/25 23:25: Troponin T Hi Sens 4Hr < 6 04/26/25 05:30: Triglycerides 87, Cholesterol 217 H, LDL Cholesterol, Calc 147, VLDL Cholesterol 17, HDL Cholesterol 53, Cholesterol/HDL Ratio 4.13 Radiography Diagnostic Testing: Radiology Impression Brain CT 04/25/25 19:05 IMPRESSION: No acute intracranial abnormality. The findings and impression of this report were called directly to the ordering physician, Dr. Bacon at 7:39 p.m, eastern standard time. Reading Location: [id number] Head/Neck CTA 04/25/25 19:06 IMPRESSION: 1. No large vessel occlusion. 2. Minimal atherosclerosis of the carotid bulb and proximal internal carotid arteries with less than 15% stenosis. 3. No aneurysm. Reading Location: [facility] Echocardiogram 04/25/25 20:56 Interpretation Summary The estimated ejection fraction is 55???60 %. Bubble study performed which is negative with no intracardiac shunt. No previous echo to compare Ordering Physician: John Gottlieb Performed By: Óscar Arevalo RCS Brain MRI 04/26/25 20:56 IMPRESSION: 1. No specific evidence of an acute intracranial process. 2. Additional description as above. Reading Location: [facility] D/C Instructions Discharge Activity: Return to Normal Activity Weight Bearing Status: Weight bearing as tolerated Call your doctor if you observe: Fever of 101 or Higher and Dizziness DC O2, CPAP, BIPAP Needs Home O2 Discharge instructions: No Meaningful Use Info Meaningful Use Meaningful Use Diagnoses (Choose all that apply): None applicable Discharge Plan Admission Admit Date/Time: 04/25/25 20:51 Primary Reason for Your Visit: vertigo Attending Provider: Sandra Macdonald Primary Care Provider: Scar Wilkins Consulting Providers: Rene Tipton; Kaylin Jackson; Mandy Sánchez; Kathleen Greenwood; Mallory Dominguez; Mauricio Malin; Kimberley Callejas; Graeme Barba; Cas Worley; Jose A iHnds; Chelsie Mayen; Kelin Landis; Kvng Joe; Kiki Gutierrez; Maryann Dent; Carlee Fischer; Manny Ocampo; Ava Conley; Odilon Ingram; Latesha Martin; Philipp Howell; John Gottlieb Instructions Patient Instructions: ED BPV Vertigo Discharge Orders/Prescriptions Prescriptions: New meclizine 25 mg tablet 25 mg PO BID PRN (Reason: dizziness) Qty: 60 1RF atorvastatin [Lipitor] 40 mg tablet 40 mg PO DAILY Qty: 30 1RF Continued multivitamin with minerals 1 EACH tablet 1 ea PO DAILY vglm-3-ahd-dha-fish oil-flax-E [id number] mh-ke-fk-unit capsule 1 cap PO DAILY Zclkffbs-Ulhmyk-XET with vit D 750-625-1,000 mg-mg-unit tablet 1 tab PO Referrals / Follow Up: Scar Wilkins MD [Primary Care Provider] - Within 1 Week Disposition Disposition (needs filled in before D/C Order can be placed): Home, Self Care Charges/Coding Visit Charges Inpatient E&M: 83743 Disch Hosp >30min
--- NOTE | 2025-04-26 16:39 | DCINST_ITS ---
Discharge Instructions DC O2, CPAP, BIPAP needs Home O2 Discharge instructions: No Dressing / Incision Discharge Activity: Return to Normal Activity Weight Bearing Status: Weight bearing as tolerated Dressing / Incision Call your doctor if you observe: Fever of 101 or Higher and Dizziness Follow Up Care Test Results: Test results from this visit will be discussed in further detail at your follow- up appointment, if applicable. Discharge Plan Admission Admit Date/Time: 04/25/25 20:51 Primary Reason for Your Visit: vertigo Attending Provider: Sandra Macdonald Primary Care Provider: Scar Wilkins Consulting Providers: Rene Tipton; Kaylin Jackson; Mnady Sánchez; Kathleen Greenwood; Mallory Dominguez; Mauricio Malin; Kimberley Callejas; Graeme Barba; Cas Worley; Jose A Hinds; Chelsie Mayen; Kelin Landis; Kvng Joe; Kiki Gutierrez; Maryann Dent; Carlee Fischer; Manny Ocampo; Ava Conley; Odilon Ingram; Latesha Martin; Philipp Howell; John Gottlieb Instructions Patient Instructions: ED BPV Vertigo Discharge Orders/Prescriptions Prescriptions: New meclizine 25 mg tablet 25 mg PO BID PRN (Reason: dizziness) Qty: 60 1RF atorvastatin [Lipitor] 40 mg tablet 40 mg PO DAILY Qty: 30 1RF Continued multivitamin with minerals 1 EACH tablet 1 ea PO DAILY ieah-6-uzl-dha-fish oil-flax-E [phone] tj-fp-rt-unit capsule 1 cap PO DAILY Kbxhacwl-Usscax-CDX with vit D 750-625-1,000 mg-mg-unit tablet 1 tab PO Referrals / Follow Up: Scar Wilkins MD [Primary Care Provider] - Within 1 Week Disposition Disposition (needs filled in before D/C Order can be placed): Home, Self Care
[2025-04-26 17:00] VITALS: BMI 24.4
[2025-04-26 17:16] VITALS: BP 137/78; PULSE 63; RESP 17; TEMP 36.8; O2SAT 97
--- NOTE | 2025-04-26 20:56 | MRI_ITS ---
PROCEDURE: BRAIN WITHOUT CONTRAST 04/26/2025 REASON FOR EXAM: VERTIGO WITH ATAXIA; EVALUTE FOR TIA/CVA. TECHNIQUE: Procedure Code: MRIBR Modality: MR Procedure: BRAIN WITHOUT CONTRAST Multiplanar and multisequence images were obtained. COMPARISON: 04/25/2025 FINDINGS: Cerebrum: No acute infarct, visible mass, or definite acute intracranial hemorrhage. Few small supratentorial white matter abnormalities, nonspecific but compatible with early/mild chronic microvascular ischemic changes. Cerebellum: Unremarkable. Brainstem: Unremarkable. Ventricles/extra-axial spaces: Unremarkable. Major flow voids: Better evaluated on recent CTA. Paranasal sinuses: Unremarkable. Scalp/calvarium: Grossly unremarkable. Orbits: Grossly unremarkable within limits of nondedicated technique. Other: None. MRI/Brain without Contrast IMPRESSION: 1. No specific evidence of an acute intracranial process. 2. Additional description as above. Reading Location: [id number]
== END 2025-04-26 16:38 | disposition home or self-care (01) ==
LOC: ED 19:51 → PCU 04-26 01:41
PROVIDERS: Admitting Provider Internal Medicine; Emergency Provider Emergency Medicine; PCP Family Medicine; Visit Provider Student in an Organized Health Care Education/Training Program
DX: R42 Dizziness and giddiness (principal); I10 Essential (primary) hypertension; R11.2 Nausea with vomiting, unspecified; R27.0 Ataxia, unspecified; H55.09 Other forms of nystagmus; F41.1 Generalized anxiety disorder
CPT/HCPCS: 96365; 96372; 96375; 96376; 36415; 70450; 70496; 70498; 70551; 80048; 80061; 80307; 82077; 83036; 84443; 84484; 85025; 85610; 85730; 93005; 93306; 94762; 96361; 96374; 97162; 97165; 97802; 99221; 99285; Q9967; A4216; G0378; J2405